=== PATIENT | male | born 1940 | race Caucasian/White ===

== ENCOUNTER 2021-11-01 17:14 | Inpatient (IN) | payer OTHER, MEDICARE ==
[2021-11-01] MEDS ORDERED: FUROSEMIDE 100 MG/10 ML VIAL IV ONE (19:08)
[2021-11-01 19:11] LABS: Absolute Lymphocytes (CBC) 1.1 K/uL (0.7-4.9); Hematocrit 41.2 % (39.6-49.0); Lymphocytes % 15.1 % (15.3-44.8); MCV 97.4 fL (80-100); MPV 7.3 fL (7.6-11.3); RBC Red Blood Cell Count 4.23 M/uL (4.33-5.43)
--- NOTE | 2021-11-01 19:17 | RAD REPORT ---
EXAM DESCRIPTION: RAD - Chest Single View - 11/01/2021 7:06 pm CLINICAL HISTORY: bilateral leg swelling, shortness of breath COMPARISON: Two view chest March 2021 TECHNIQUE: AP portable chest image was obtained 11/01/2021 7:06 pm . FINDINGS: Interstitial markings are increased over the prior study with a relatively similar lung vo lumes. No focal consolidation or mass. Mediastinum is distorted by rotation. Central vasculature is i ncreased over the prior study. Mild cardiomegaly is present in part due to portable imaging. No pneum othorax or large pleural effusion. No acute bony abnormality seen. No acute aortic findings suspected . IMPRESSION: Mild CHF/volume overload pattern.
[2021-11-01 19:28] LABS: Potassium 3.7 mmol/L (3.5-5.1)
[2021-11-01 19:30] LABS: Troponin High Sensitivity 33.9 pg/mL (<58.9)
--- NOTE | 2021-11-01 20:05 | EDPHYS ---
Physician Documentation [facility] Name: Nirav Maria Jr Age: 81 yrs Sex: Male : 1940 Arrival Date: 11/01/2021 Time: 17:16 Bed 16 Private MD: ED Physician Izaiah Colon HPI: 11/01 18:11 This 81 yrs old Male presents to ER via Ambulatory with complaints of Leg Swelling - kdr leaking fluid. 18:11 Patient states that for the past week he has had increased swelling to his lower kdr extremities. Today the swelling worsened and he started having fluid drainage from his ankles. He has not had this bad of an issue previously. He denies any chest pain or shortness of breath beyond his normal state. Denies productive cough. He does not currently require emergent intervention and is nontoxic-appearing. Onset: The symptoms/episode began/occurred gradually, 1 week(s) ago. Severity of symptoms: At their worst the symptoms were mild moderate just prior to arrival, in the emergency department the symptoms are unchanged. The patient has not experienced similar symptoms in the past. The patient has not recently seen a physician. Historical: - Allergies: 17:31 No Known Allergies; sanchez - Home Meds: 17:31 Unable to obtain [Active]; sanchez - Immunization history:: Adult Immunizations. - Social history:: Smoking status: Patient denies any tobacco usage or history of. ROS: 18:11 Constitutional: Negative for fever, chills, and weight loss, Eyes: Negative for injury, kdr pain, redness, and discharge, Neck: Negative for injury, pain, and swelling, Cardiovascular: Negative for chest pain, palpitations, and edema, Respiratory: Negative for shortness of breath, cough, wheezing, and pleuritic chest pain, Abdomen/GI: Negative for abdominal pain, nausea, vomiting, diarrhea, and constipation, Back: Negative for injury and pain, : Negative for injury, bleeding, discharge, and swelling, Skin: Negative for injury, rash, and discoloration, Neuro: Negative for headache, weakness, numbness, tingling, and seizure activity. Psych: Negative for depression, anxiety, suicide ideation, homicidal ideation, and hallucinations, Allergy/Immunology: Negative for hives, rash, and allergies, Endocrine: Negative for neck swelling, polydipsia, polyuria, polyphagia, and marked weight changes, Hematologic/Lymphatic: Negative for swollen nodes, abnormal bleeding, and unusual bruising. 18:11 MS/extremity: Positive for pain, tenderness, warmth, of the right leg and left leg. Exam: 18:11 Constitutional: This is a well developed, well nourished patient who is awake, alert, kdr and in no acute distress. Head/Face: Normocephalic, atraumatic. Eyes: Pupils equal round and reactive to light, extra-ocular motions intact. Lids and lashes normal. Conjunctiva and sclera are non-icteric and not injected. Cornea within normal limits. Periorbital areas with no swelling, redness, or edema. 18:11 Cardiovascular: Edema: 4+ edema to level of left upper thigh, left lower thigh, left knee, left midcalf, left ankle, left foot, left toes, right upper thigh, right lower thigh, right knee, right midcalf and right toes. 18:11 ECG was reviewed by the Attending Physician. 20:11 Cardiovascular: Rate: normal, Rhythm: regular, Pulses: Pulses are 4+ in bilateral remberto radial, brachial, femoral, popliteal, posterior tibial and and dorsalis pedis arteries.. Heart sounds: normal, normal S1and S2, no S3 or S4, no murmur, no rub, no gallop, JVD: is not appreciated. 20:11 Respiratory: the patient does not display signs of respiratory distress, Respirations: labored breathing, is not present, Breath sounds: rales, that are mild, that are moderate, are located in both bases, rhonchi, that are mild, are scattered, stridor, is not appreciated. 20:11 Musculoskeletal/extremity: ROM: intact in all extremities, full active range of motion, full passive range of motion, Circulation is intact in all extremities. Sensation intact. Compartment Syndrome exam of affected extremity: is normal. DVT Exam: negative Homans' sign noted on exam, no appreciated bluish discoloration, no increased warmth, pain, swelling, tenderness, erythema. 20:16 ECG was reviewed by the Attending Physician. [facility] Vital Signs: 17:28 BP 132 / 65; Pulse 96; Resp 19; Temp 98.6; Pulse Ox 98% ; Weight 126.1 kg; Height 6 ft. sanchez (182.88 cm); 20:00 BP 134 / 79; Pulse 81; Resp 21; Pulse Ox 92% on R/A; vc1 22:05 BP 139 / 79; Pulse 67; Resp 20; Pulse Ox 92% ; vc1 17:28 Body Mass Index 37.70 (126.10 kg, 182.88 cm) sanchez MDM: 18:11 Data reviewed: vital signs, nurses notes, lab test result(s), radiologic studies. kdr Counseling: I had a detailed discussion with the patient and/or guardian regarding: the historical points, exam findings, and any diagnostic results supporting the discharge/admit diagnosis, lab results, radiology results, the need for outpatient follow up. 19:22 Patient medically screened. [facility] 11/01 18:10 Order name: Basic Metabolic Panel; Complete Time: 20:01 [facility] 11/01 18:10 Order name: CBC with Diff; Complete Time: 20:01 [facility] 11/01 18:10 Order name: NT PRO-BNP; Complete Time: 20:01 [facility] 11/01 18:10 Order name: Troponin HS; Complete Time: 20:01 [facility] 11/01 18:23 Order name: Troponin High Sensitivity [facility] 11/01 18:23 Order name: Chest Single View; Complete Time: 20:01 [facility] 11/01 20:11 Order name: US Extremity Venous W Compression Shon [facility] 11/01 20:15 Order name: TSH [facility] 11/01 21:18 Order name: SARS-COV-2 RT PCR [facility] 11/01 18:10 Order name: EKG; Complete Time: 18:35 [facility] 11/01 18:10 Order name: Cardiac monitoring; Complete Time: 19:52 [facility] 11/01 18:10 Order name: EKG - Nurse/Tech; Complete Time: 19:52 [facility] 11/01 18:10 Order name: IV Saline Lock; Complete Time: 19:52 [facility] 11/01 18:10 Order name: Labs collected and sent; Complete Time: 19:52 [facility] 11/01 18:10 Order name: O2 Per Protocol; Complete Time: 19:52 [facility] 11/01 18:10 Order name: O2 Sat Monitoring; Complete Time: 19:52 kdr 11/01 18:23 Order name: EKG Electrocardiogram [facility] EC:16 Rate is 83 beats/min. Rhythm is irregularly irregular. QRS [place] is Normal. DE interval remberto is normal. QRS interval is normal. QT interval is normal. No Q waves. T waves are Normal. No ST changes noted. Clinical impression: Atrial Fibrillation. Interpreted by me. Reviewed by me. Administered Medications: 19:04 Drug: Lasix (furosemide) 60 mg Route: IVP; Site: left antecubital; jh6 20:18 Drug: Potassium Effervescent Tablet 25 mEq Route: PO; vc1 20:54 Drug: Lovenox (enoxaparin) 100 mg Route: Sub-Q; Site: left lower abdomen; vc1 Disposition Summary: 11/01/21 20:04 Hospitalization Ordered Hospitalization Status: Observation remberto Provider: Bryn Powers cha Location: Telemetry/MedSurg (observation) remberto Condition: Fair remberto Problem: new remberto Symptoms: have improved remberto Bed/Room Type: Standard remberto Room Assignment: 223(11/01/21 22:54) mw Diagnosis - Unspecified systolic (congestive) heart failure remberto - Edema, unspecified remberto - Dyspnea remberto - Venous insufficiency (chronic) (peripheral) remberto - Unspecified atrial fibrillation remberto Forms: - Medication Reconciliation Form remberto - SBAR form remberto Signatures: Dispatcher [employer] EDMS Vicky Burden RN RN mw Anderson, Corey, MD MD cha Rittger, Kevin, MD MD kdr Hastedt, Jennifer, RN RN jh Shilpi Gonzales RN RN ha Calcote, Vanessa RN RN vc1 Corrections: (The following items were deleted from the chart) 17:33 17:31 Home Meds: Feldene 10 mg Oral cap 1 cap once daily; sanchez sanchez 17:33 17:31 PMHx: Hypertensive disorder; sanchez sanchez 17:33 17:31 PMHx: Hypertensive disorder; sanchez sanchez 18:48 18:35 Chest Single View+RAD.RAD.BRZ ordered. EDMS EDMS 18:58 18:23 Basic Metabolic Panel ordered. EDMS EDMS 18:58 18:23 CBC with Automated Diff ordered. EDMS EDMS 18:58 18:23 NT PRO-BNP ordered. EDMS EDMS 21:18 20:25 COVID-19/FLU A+B+MOL.LAB.BRZ ordered. EDMS EDMS 22:54 20:04 remberto cantu
--- NOTE | 2021-11-01 20:05 | ER ---
Nurse's Notes [facility] Name: Nirav Maria Jr Age: 81 yrs Sex: Male : 1940 Arrival Date: 11/01/2021 Time: 17:16 Bed 16 Private MD: Diagnosis: Unspecified systolic (congestive) heart failure;Edema, unspecified;Dyspnea;Venous insufficiency (chronic) (peripheral);Unspecified atrial fibrillation Presentation: 11/01 17:28 Chief complaint: Patient states: pt reports bilateral leg swelling and leaking. sanchez Coronavirus screen: Vaccine status: Patient reports receiving the 2nd dose of the covid vaccine. Ebola Screen: Patient denies travel to an Ebola-affected area in the 21 days before illness onset. Initial Sepsis Screen: Does the patient meet any 2 criteria? HR > 90 bpm. Does the patient have a suspected source of infection?. Initial Sepsis Screen: Does the patient meet any 2 criteria?. Risk Assessment: Do you want to hurt yourself or someone else? Patient reports no desire to harm self or others. Onset of symptoms was 2021. 17:28 Method Of Arrival: Ambulatory sanchez 17:28 Acuity: ROYCE 3 sanchez Triage Assessment: 17:31 General: Appears in no apparent distress. Behavior is calm, cooperative. Pain: Denies sanchez pain. Historical: - Allergies: 17:31 No Known Allergies; sanchez - Home Meds: 17:31 Unable to obtain [Active]; sanchez - Immunization history:: Adult Immunizations. - Social history:: Smoking status: Patient denies any tobacco usage or history of. Screenin:00 Abuse screen: Denies threats or abuse. Denies injuries from another. Nutritional jh6 screening: No deficits noted. On. Tuberculosis screening: No symptoms or risk factors identified. Fall Risk IV access (20 points). Gait- Impaired (20 pts.). Assessment: 18:00 General: Appears in no apparent distress. Behavior is calm, cooperative. jh6 18:00 General: pt states that over the last couple of weeks he has had increase in weight and jh6 swelling to lower ext bilat. pt is taking a fluid pill but states obviously isn't working. . Pain: Complains of pain in right leg and left leg Pain currently is 4 out of 10 on a pain scale. Quality of pain is described as burning, sharp, Is continuous. Derm: Skin is thin, with poor turgor Wound noted right leg and left leg Reports oozing fluid. 19:00 Reassessment: Patient and/or family updated on plan of care and expected duration. Pain vc1 level reassessed. Patient is alert, oriented x 3, equal unlabored respirations, skin warm/dry/pink. 20:00 Reassessment: Patient and/or family updated on plan of care and expected duration. Pain vc1 level reassessed. Patient is alert, oriented x 3, equal unlabored respirations, skin warm/dry/pink. Patient states symptoms have improved. 21:00 Reassessment: Patient and/or family updated on plan of care and expected duration. Pain vc1 level reassessed. Patient is alert, oriented x 3, equal unlabored respirations, skin warm/dry/pink. Patient states feeling better. Patient states symptoms have improved. 22:00 Reassessment: No changes from previously documented assessment. vc1 Vital Signs: 17:28 BP 132 / 65; Pulse 96; Resp 19; Temp 98.6; Pulse Ox 98% ; Weight 126.1 kg; Height 6 ft. sanchez (182.88 cm); 20:00 BP 134 / 79; Pulse 81; Resp 21; Pulse Ox 92% on R/A; vc1 22:05 BP 139 / 79; Pulse 67; Resp 20; Pulse Ox 92% ; vc1 17:28 Body Mass Index 37.70 (126.10 kg, 182.88 cm) sanchez ED Course: 17:16 Patient arrived in ED. as 17:31 Triage completed. sanchez 17:31 Arm band placed on. sanchez 17:51 Estefany Quiñones, YANNA is Primary Nurse. jh6 17:51 Clint Meneses MD is Attending Physician. kdr 18:00 Placed in gown. Bed in low position. Call light in reach. Side rails up X 1. Adult w/ jh6 patient. 18:50 Inserted saline lock: 20 gauge in left antecubital area, using aseptic technique. Blood 6 collected. 19:08 Chest Single View In Process Unspecified. EDMS 19:22 Attending Physician role handed off by Clint Meneses MD remberto 19:22 Izaiah Colon MD is Attending Physician. remberto 20:03 Bryn Powers MD is Hospitalizing Provider. remberto 21:12 US Extremity Venous W Compression Shon In Process Unspecified. EDMS Administered Medications: 19:04 Drug: Lasix (furosemide) 60 mg Route: IVP; Site: left antecubital; jh6 20:18 Drug: Potassium Effervescent Tablet 25 mEq Route: PO; vc1 20:54 Drug: Lovenox (enoxaparin) 100 mg Route: Sub-Q; Site: left lower abdomen; vc1 Outcome: 20:04 Decision to Hospitalize by Provider. [facility] 11/02 00:07 Patient left the ED. vc1 Signatures: Dispatcher [employer] EDMS Izaiah Colon MD MD cha Rittger, Kevin, MD MD kdr Martinez, Amelia as Hastedt, Jennifer, RN RN [facility] Tammie-StagerShilpi RN RN ha Calcote, Vanessa, RN RN vc1 Corrections: (The following items were deleted from the chart) 11/01 17:33 17:31 Home Meds: Feldene 10 mg Oral cap 1 cap once daily; sanchez sanchez 17:33 17:31 PMHx: Hypertensive disorder; sanchez sanchez 17:33 17:31 PMHx: Hypertensive disorder; sanchez sanchez
[2021-11-01] MEDS ORDERED: POTASSIUM 25 MEQ EFFERV TAB ONE (20:20)
[2021-11-01] MEDS ORDERED: ENOXAPARIN 100 MG/ML SYR SQ ONE (20:31)
--- NOTE | 2021-11-01 21:05 | P.HP ---
Certification for Inpatient Patient admitted to: Observation With expected LOS: <2 Midnights Patient will require the following post-hospital care: None Practitioner: I am a practitioner with admitting privileges, knowledge of patient current condition, hospital course, and medical plan of care. Services: Services provided to patient in accordance with Admission requirements found in Title 42 Section 412.3 of the Code of Federal Regulations Patient History Date of Service: 11/01/21 Reason for admission: CHF Exacerbation, New Afib History of Present Illness: Patient is an 81-year-old male with PMH of CHF (unknown EF) and HTN who presented to the ED with complaints of bilateral leg swelling with fluid leakage and weight gain over the past 2-4 weeks. Patient reports that he takes a fluid pill prescribed by Dr. Pelayo but is not sure of the name. He had a nuclear stress test about 6 months ago that was normal (sees Maurisio). He reports having an ec ho in the past, but is not sure when. Patient was noted to be in afib on presentation but denies history of afib. BLE with 4+ pitting edema up to thighs. Chest xray showed mild CHF. pro BNP 385, troponin WNL. He was given 60 mg IV lasix and therapeutic lovenox. Patient has diuresed appropriately and is already feeling relief. venous doppler negative for DVT. He is admitted for observation. Allergies No Known Allergies Allergy (Unverified 11/01/21 18:19) - Past Medical/Surgical History -: CHF -: HTN -: GERD -: L shoulder -: Appendectomy Psychosocial/ Personal History: Patient is . - Family History Mother -: Lung disease - Social History Smoking Status: Former smoker Alcohol use: Yes CD- Drugs: No Caffeine use: Yes Place of Residence: Home Review of Systems Musculoskeletal: Leg Pain, Pedal edema, As per HPI Physical Examination - Physical Exam General: Alert, In no apparent distress, Obese HEENT: Atraumatic, PERRLA, EOMI, Sclerae nonicteric Neck: Supple, 2+ carotid pulse no bruit, No LAD, Without JVD or thyroid abnormality Respiratory: Diminished Cardiovascular: Edema (3+ BLE ), Irregular heart rate/rhythm (afib) Gastrointestinal: Normal bowel sounds, No tenderness Integumentary: Tenderness/swelling, Erythema Neurological: Normal speech, Normal strength at 5/5 x4 extr, Normal tone, Normal affect - Studies Laboratory Data (last 24 hrs) 11/01/21 18:58: WBC 7.4, Hgb 13.6, Hct 41.2, Plt Count 191 11/01/21 18:58: Sodium 143, Potassium 3.7, BUN 17, Creatinine 0.94, Glucose 103 11/01/21 18:20: Sodium Cancelled, Potassium Cancelled, BUN Cancelled, Creatinine Cancelled, Glucose Cancelled 11/01/21 18:20: WBC Cancelled, Hgb Cancelled, Hct Cancelled, Plt Count Cancelled Assessment and Plan - Problems (Diagnosis) (1) Acute on chronic systolic CHF (congestive heart failure) Current Visit: Yes Status: Acute (2) New onset a-fib Current Visit: Yes Status: Acute (3) Anasarca Current Visit: Yes Status: Acute (4) Hypertension Current Visit: Yes Status: Chronic Qualifiers: Hypertension type: primary hypertension Qualified Code(s): I10 - Essential (primary) hypertension - Plan -Echo ordered for morning. Cardiology consulted. -Continue IV lasix. Monitor intake and output. -New onset afib, rate controlled. Therapeutic lovenox given in ED. Monitor on telemetry. -Reconcile and continue home medications -Monitor and replete electrolytes per protocol -Lovenox for VTE ppx -Full code Discharge Plan: Home Plan to discharge in: 24 Hours - Advance Directives Does patient have a Living Will: Yes Does patient have a Durable POA for Healthcare: Yes - Code Status/Comfort Care Code Status Assessed: Yes (Full) Critical Care: No Time Spent Managing Pts Care (In Minutes): 50
[2021-11-01] MEDS ORDERED: ONDANSETRON 4 MG/2 ML VIAL IV PRN (23:18)
[2021-11-02] MEDS ORDERED: POTASSIUM 25 MEQ EFFERV TAB ONE (00:12)
[2021-11-02 04:05] LABS: Absolute Lymphocytes (CBC) 0.8 K/uL (0.7-4.9); Hematocrit 41.8 % (39.6-49.0); Lymphocytes % 9.3 % (15.3-44.8); MPV 7.5 fL (7.6-11.3); RBC Red Blood Cell Count 4.23 M/uL (4.33-5.43)
[2021-11-02 04:25] LABS: Magnesium 2.4 mg/dL (1.8-2.4); Potassium 3.6 mmol/L (3.5-5.1)
--- NOTE | 2021-11-02 07:57 | EKG ---
Test Date: 2021-11-01 Test Time: 19:42:58 Automatic Lump Making Machine Tender: ALENA MEASUREMENT RESULTS: Intervals: Rate: 83 AL: QRSD: 134 QT: 414 QTc: 486 Cameron: P: AL: QRS: -62 T: 104 INTERPRETIVE STATEMENTS: Atrial fibrillation with a competing junctional pacemaker with premature ventricular or aberrantly conducted complexes Left axis deviation Right bundle branch block Minimal voltage criteria for LVH, may be normal variant Inferior infarct, age undetermined Anterior infarct, age undetermined Abnormal ECG Compared to ECG 09/09/2019 17:04:44 Ventricular premature complex(es) now present eft-axis deviation now present Bifascicular block no longer present Early repolarization no longer present Electronically Signed On 11-02-21 07:55:25 CDT by Jeet Forde
[2021-11-02] MEDS ORDERED: PNEUMOCOCCAL VACCINE 0.5 ML IMVAC ONE (08:00)
--- NOTE | 2021-11-02 08:15 | RAD REPORT ---
EXAM DESCRIPTION: US - Extrem Venous W Compress Shon - 11/01/2021 9:10 pm CLINICAL HISTORY: PAINboth lower extremities COMPARISON: None. TECHNIQUE: Real-time sonographic evaluation of the bilateral lower extremity common femoral, superfi cial femoral, popliteal and posterior tibial veins was performed. FINDINGS: Normal compressibility, flow augmentation, phasic flow and spontaneous flow are identified in the left and right lower extremity common femoral, superficial femoral, popliteal and posterior t ibial veins. No intraluminal filling defects seen. Preliminary findings were provided to the referring clinician at the time of the study. IMPRESSION: No DVT in either lower extremity.
[2021-11-02] MEDS: FUROSEMIDE 20 MG/ 2ML VIAL IV SCH ×2 (08:25→16:24)
[2021-11-02] MEDS ORDERED: POTASSIUM CL SA 10 MEQ TAB PO ONE (09:00)
[2021-11-02] MEDS ORDERED: ENOXAPARIN 40 MG/0.4 ML SQ SCH (09:00)
--- NOTE | 2021-11-02 09:44 | CON ---
Date of Consultation: 11/02/2021 Admitted on 11/01/[address] Sullivan. I saw the patient on 11/02/2021. Reason For Consultation: CHF, new onset atrial fibrillation. History Of Present Illness: Mr. Maria is an 81 years old. He is known to me from previous office vi sits and admissions. He has a history of chronic diastolic congestive heart failure, mild coronary a rtery disease, hypertension, hyperlipidemia, previous history of tobacco use. He came into the [facility] with congestive heart failure, mainly shortness of breath, cough, severe pedal edema, weight gain . Denied any nausea, vomiting, diaphoresis. He denied any palpitation or syncope, but was found to be in atrial fibrillation. Past Medical History: As stated above. Allergies: NONE. Review of Systems: Negative. Social History: Positive for tobacco in the past. Family History: Noncontributory. Medications: At home include aspirin, Protonix, torsemide 20 mg daily, and Zocor 20 mg daily. Physical Examination: Vital Signs: Stable. He was afebrile. He was in atrial fibrillation. Weight is 90. HEENT: Negative. Neck: Supple with no bruit, lymphadenopathy, JVD, or thyromegaly. Chest: Revealed some expiratory wheezing. Cardiac: Revealed a regular rhythm and rate with S4 gallops. No murmurs or rubs. Abdomen: Obese. Extremities: Revealed 3+ edema to the knees. Skin: Dry and intact. Neurologic: He was nonfocal. Pulses were present distally bilaterally, the dorsalis pedis and poste rior tibial in the femoral artery. Diagnostic Data: He was COVID positive. BNP was 585. Chest x-ray showed mild CHF. EKG showed atri al fibrillation. Impression And Plan: 1.Acute on chronic diastolic congestive heart failure. Last echocardiogram in my office in March 2021. He had a normal ejection fraction with diastolic dysfunction. He had a normal stress test in March 2021. He had mild coronary artery disease by catheterization in 2004. He needs to be diur esed with IV Lasix. We need to put him on carvedilol. We need to consider low-dose SAMSON inhibitor. He does take Demadex at home. We can change that to Lasix down the road. 2.New onset atrial fibrillation, rate controlled, asymptomatic. I think we need to put him on a bet a-laura and we need to anticoagulate him when he goes home with Everett and Rosalinda. He is on Love nox now and I agree with that. 3.COVID positive. 4.Hypertension. 5.Dyslipidemia. 6.Obesity. 7.Gastroesophageal reflux disease. I will continue to follow him. Echocardiogram is pending. TOÑO Voice ID: [id number] Report ID: [id number]
[2021-11-02 11:58] LABS: Urine Appearance CLEAR (Clear); Urine Bilirubin NEGATIVE (Negative); Urine Blood 2+ (Negative); Urine Color YELLOW (Yellow); Urine Glucose NEGATIVE (Negative); Urine Protein NEGATIVE (Negative)
[2021-11-02 12:32] LABS: Urine Bacteria <20 /HPF (NONE SEEN); Urine RBC 20-50 /HPF (NONE SEEN)
[2021-11-02] MEDS: BENZONATATE 100 MG CAP PO PRN ×2 (13:59→20:24)
--- NOTE | 2021-11-02 17:06 | P.PN ---
Subjective Date of Service: 11/02/21 Primary Care Provider: Dr. Sahil Pelayo Chief Complaint: CHF Exacerbation, New Afib No acute events since admission. He reports that his breathing has improved, but his primary complaint is a dry cough. Review of Systems General: Unremarkable Eyes: Unremarkable ENT: Unremarkable Respiratory: Cough, Shortness of Breath Cardiovascular: Unremarkable Gastrointestinal: Unremarkable Genitourinary: Unremarkable Musculoskeletal: Unremarkable Integumentary: Unremarkable Neurological: Unremarkable Physical Examination - Vital Signs Temperature: 99.5 F Blood Pressure: 150/70 Pulse: 89 Respirations: 16 Pulse Ox (%): 90 - Physical Exam General: Alert, In no apparent distress, Oriented x3 HEENT: Atraumatic Neck: JVD not distended Respiratory: Normal air movement, Crackles/rales (bibasilar) Cardiovascular: Edema (2-3+ pitting) Gastrointestinal: Normal bowel sounds, Soft and benign, No tenderness, No rebound, No guarding Musculoskeletal: No clubbing Integumentary: No rashes Neurological: Normal speech, Normal tone, Normal affect - Studies Laboratory Data (last 24 hrs) 11/02/21 03:52: Sodium 142, Potassium 3.6, BUN 15, Creatinine 0.91, Glucose 117 H, Magnesium 2.4, Triglycerides 67, Cholesterol 108, HDL Cholesterol 49, Cholesterol/HDL Ratio 2.20 11/02/21 03:52: WBC 8.3, Hgb 14.0, Hct 41.8, Plt Count 206 11/01/21 18:58: WBC 7.4, Hgb 13.6, Hct 41.2, Plt Count 191 11/01/21 18:58: Sodium 143, Potassium 3.7, BUN 17, Creatinine 0.94, Glucose 103 11/01/21 18:20: Sodium Cancelled, Potassium Cancelled, BUN Cancelled, Creatinine Cancelled, Glucose Cancelled 11/01/21 18:20: WBC Cancelled, Hgb Cancelled, Hct Cancelled, Plt Count Cancelled Assessment And Plan - Plan (1) Acute on chronic systolic CHF (congestive heart failure) Current Visit: Yes Status: Acute (2) New onset a-fib Current Visit: Yes Status: Acute (3) Anasarca Current Visit: Yes Status: Acute (4) Hypertension Current Visit: Yes Status: Chronic Qualifiers: Hypertension type: primary hypertension Qualified Code(s): I10 - Essential (primary) hypertension - Plan - Cardiology consulted and spoke with Dr. Forde - Recommends starting beta-laura and anticoagulation for atrial fibrillation - Started on metoprolol and enoxaparin - TTE = pending - Continue IV furosemide. Monitor intake and output. - Telemetry - COVID-19 infection seems minimally symptomatic - PRN guaifenesin, benzonatate - Reconcile and continue home medications - Monitor and replete electrolytes per protocol - Will need outpatient Urology follow-up for microscopic hematuria - Full code Jorgito Neal MD
[2021-11-02] MEDS: METOPROLOL TAR 25 MG TAB PO SCH (17:47)
[2021-11-02] MEDS: Enoxaparin 120 MG/0.8 ML SYR SQ SCH (20:24)
[2021-11-02] MEDS: GUAIFENESIN 600 MG SA TAB PO SCH (20:24)
--- NOTE | 2021-11-03 06:48 | ECHO ---
HEIGHT: 6 ft 0 in WEIGHT: 272 lb 0 oz DATE OF STUDY: 11/02/[address]: Abby Navarrete 2-DIMENSIONAL: YES M.MODE: YES DOPPLER: YES COLOR FLOW: YES TDS: NO PORTABLE: YES DEFINITY: NO BUBBLE STUDY: NO DIAGNOSIS: CONGESTIVE HEART FAILURE EXACERBATION, NEW ATRIAL FIBRILLATION CARDIAC HISTORY: CATHERIZATION: NO SURGERY: NO PROSTHETIC VALVE: NO PACEMAKER: NO MEASUREMENTS (cm) DIASTOLIC (NORMALS) SYSTOLIC (NORMALS) IVSd 1.1 (0.6-1.2) LA Diam 4.0 (1.9-4.0) LVEF 45-50% LVIDd 4.9 (3.5-5.7) LVIDs 3.4 (2.0-3.5) %FS 29% LVPWd 1.4 (0.6-1.2) Ao Diam 2.9 (2.0-3.7) 2 DIMENSIONAL ASSESSMENT: RIGHT ATRIUM: NORMAL LEFT ATRIUM: NORMAL RIGHT VENTRICLE: NORMAL LEFT VENTRICLE: NORMAL TRICUSPID VALVE: MITRAL VALVE: PULMONIC VALVE: AORTIC VALVE: PERICARDIAL EFFUSION: NONE AORTIC ROOT: NORMAL LEFT VENTRICULAR WALL MOTION: MILD GLOBAL HYPOKINESIS. DOPPLER/COLOR FLOW: SEE BELOW COMMENTS: MILDLY DEPRESSED LEFT VENTRICULAR EJECTION FRACTION 45-50%. MILD GLOBAL HYPOKINESIS. MILD ATRIAL, MITRAL AND TRICUSPID REGURGITATION. MILD PULMONARY INSUFFICIENCY TECHNOLOGIST: Katina ORELLANA
[2021-11-03] MEDS: METOPROLOL TAR 25 MG TAB PO SCH ×2 (07:03→17:44)
[2021-11-03] MEDS: FUROSEMIDE 20 MG/ 2ML VIAL IV SCH ×2 (08:30→17:44)
[2021-11-03] MEDS: BENZONATATE 100 MG CAP PO PRN ×2 (08:30→21:12)
[2021-11-03] MEDS: GUAIFENESIN 600 MG SA TAB PO SCH ×2 (08:30→21:12)
[2021-11-03] MEDS: Enoxaparin 120 MG/0.8 ML SYR SQ SCH ×2 (08:30→21:12)
--- NOTE | 2021-11-03 16:39 | P.PN ---
Subjective Date of Service: 11/03/21 Primary Care Provider: Dr. Sahil Pelayo Chief Complaint: CHF Exacerbation, New Afib No acute events since admission. He reports that his breathing has improved, His net I/O since admission is -2.2 L. He continues to experience a dry cough despite PRN guaifenesin, benzonatate Review of Systems General: Unremarkable Eyes: Unremarkable ENT: Unremarkable Respiratory: Cough, Shortness of Breath Cardiovascular: Unremarkable Gastrointestinal: Unremarkable Genitourinary: Unremarkable Musculoskeletal: Unremarkable Integumentary: Unremarkable Neurological: Unremarkable Physical Examination - Vital Signs Temperature: 99.8 F Blood Pressure: 159/80 Pulse: 84 Respirations: 20 Pulse Ox (%): 95 - Physical Exam General: Alert, In no apparent distress, Oriented x3 HEENT: Atraumatic, Mucous membr. moist/pink Neck: JVD not distended Respiratory: Clear to auscultation bilaterally, Crackles/rales (bibasilar - faint) Cardiovascular: Regular rate/rhythm, Normal S1 S2, No gallops, No rubs, No murmurs, Edema (3+ bilateral lower extremity pitting) Gastrointestinal: Normal bowel sounds, Soft and benign, No tenderness, No rebound, No guarding Musculoskeletal: No clubbing Integumentary: No rashes Neurological: Normal speech, Normal tone, Normal affect - Studies Medications List Reviewed: Yes Assessment And Plan - Plan (1) Acute on chronic systolic CHF (congestive heart failure) Current Visit: Yes Status: Acute (2) New onset a-fib Current Visit: Yes Status: Acute (3) Anasarca Current Visit: Yes Status: Acute (4) Hypertension Current Visit: Yes Status: Chronic Qualifiers: Hypertension type: primary hypertension Qualified Code(s): I10 - Essential (primary) hypertension - Plan - Cardiology consulted and spoke with Dr. Forde - Recommends starting beta-laura and anticoagulation for atrial fibrillation - Started on metoprolol and enoxaparin - TTE = mildly depressed left ventricular ejection fraction 45 to 50%. Mild global hypokinesis. Mild atrial, mitral, and tricuspid regurgitation. Mild pulmonary insufficiency. - Continue IV furosemide. Monitor intake and output. - Net I/O -2.2 L - Telemetry - COVID-19 infection seems minimally symptomatic - PRN guaifenesin, benzonatate - Reconcile and continue home medications - Monitor and replete electrolytes per protocol - Will need outpatient Urology follow-up for microscopic hematuria - Full code Jorgito Neal MD Discharge Plan: Home Plan to discharge in: 48 Hours - Code Status/Comfort Care Code Status Assessed: Yes Code Status: Full Code Critical Care: No
--- NOTE | 2021-11-03 17:32 | PN ---
Date of Progress Note: 11/03/2021 Mr. Maria was admitted by Dr. Neal for acute on chronic diastolic congestive heart failure. He had a normal stress test in 03/2021 and he has improved on Lasix. He has new onset atrial fibrillation t hat is rate controlled and asymptomatic. I think he needs to be on a beta-laura. I think he needs to be anticoagulated with Eliquis or Xarelto. Echocardiogram showed an ejection fraction of 45% to 50% with mild pulmonary hypertension. The patient remains in AFib at a rate of 80. He is afebrile. Otherwise, his O2 saturation is 97% on 2 L of nasal cannula. Again, I think he can go home on his h ome medications, which include Zocor and torsemide 20 daily. I think he needs to be on carvedilol an d he needs to be on a low-dose SAMSON inhibitor as well as Xarelto or Eliquis and I will see him in the office in the very near future. ROXANNE/KALPANA Voice ID: [id number] Report ID: [id number]
[2021-11-04 04:48] LABS: Absolute Lymphocytes (CBC) 0.9 K/uL (0.7-4.9); Hematocrit 44.4 % (39.6-49.0); Lymphocytes % 19.4 % (15.3-44.8); MCV 99.4 fL (80-100); MPV 7.7 fL (7.6-11.3); RBC Red Blood Cell Count 4.47 M/uL (4.33-5.43)
[2021-11-04 05:00] LABS: Potassium 3.8 mmol/L (3.5-5.1)
[2021-11-04 05:12] LABS: Blood Morphology Comment NOT SEEN (NOT SEEN); Platelet Estimate ADEQ
[2021-11-04] MEDS ORDERED: POTASSIUM CL SA 10 MEQ TAB PO ONE (06:00)
[2021-11-04] MEDS: METOPROLOL TAR 25 MG TAB PO SCH ×2 (06:26→17:03)
--- NOTE | 2021-11-04 09:17 | P.DS ---
Admission Date: 11/02/21 Discharge Date: 11/04/21 Primary Care Provider: Dr. Sahil Pelayo Disposition: ROUTINE DISCHARGE Discharge Condition: GOOD Reason for Admission: CHF Exacerbation, New Afib Consultations: 1. Cardiology Hospital Course: DIAGNOSES: # Acute on Chronic Systolic Congestive Heart Failure with Reduced Ejection Fraction (LVEF 45-50 %) # New-Onset Atrial Fibrillation - not in RVR # COVID-19 Infection # Microscopic Hematuria # HOSPITAL COURSE Mr. Nirav Maria is a pleasant 81 year old male with a past medical history significant for chronic systolic congestive heart failure with reduced ejection fraction (LVEF 45-50 %) and hypertension who was admitted to the [facility] on 11/01/2021 for an acute on chronic systolic congestive heart failure exacerbation. Upon evaluation, he was found to have new onset atrial fibrillation (ratecontrolled) as well as a mild congestive heart failure exacerbation. He was also incidentally found to test positive for COVID-19, but was reporting minimal dry cough. Cardiology was consulted and he was diuresed about 3 L during his hospitalization, with improvement in his breathing. Dr. Forde (his law firm consultant) saw him while he was hospitalized and recommended starting a betablocker as well as systemic anticoagulation. He was started on metoprolol and therapeutic enoxaparin. The enoxaparin was transitioned to apixaban, and case management assisted with obtaining prior authorization. Cardiology has cleared him for discharge today with these medication changes and recommended continuing his home torsemide. On 11/04/2021, he was seen on morning rounds and deemed medically stable for discharge. He was discharged with instructions to schedule follow-up appointments with his PCP (Dr. Pelayo) in 3-5 days and with his Harvesting Manager (Dr. Forde) in 3-5 days. He was provided prescriptions for metoprolol, apixaban, and benzonatate. He was given the opportunity to ask questions and reported no further questions. Furthermore, all questions were answered to the best of my ability. Today, I personally spent 20 minutes with Mr. Maria, of which greater than 50% of the time was spent in patient education, counseling, and coordination of care as described above. Vital Signs/Physical Exam: Temp Pulse Resp BP Pulse Ox 98 F 72 19 168/81 H 93 11/04/21 04:00 11/04/21 06:26 11/04/21 04:00 11/04/21 06:26 11/04/21 04:00 Laboratory Data at Discharge: WBC 4.9 K/uL (4.3-10.9) D 11/04/21 04:15 Hgb 14.8 g/dL (13.6-17.9) 11/04/21 04:15 Hct 44.4 % (39.6-49.0) 11/04/21 04:15 Plt Count 194 K/uL (152-406) 11/04/21 04:15 Sodium 137 mmol/L (136-145) 11/04/21 04:15 Potassium 3.8 mmol/L (3.5-5.1) 11/04/21 04:15 BUN 16 mg/dL (7-18) 11/04/21 04:15 Creatinine 1.06 mg/dL (0.55-1.3) 11/04/21 04:15 Glucose 105 mg/dL (74-106) 11/04/21 04:15 Magnesium 2.4 mg/dL (1.8-2.4) 11/02/21 03:52 Triglycerides 67 mg/dL (<150) 11/02/21 03:52 Cholesterol 108 mg/dL (<200) 11/02/21 03:52 HDL Cholesterol 49 mg/dL (40-60) 11/02/21 03:52 Cholesterol/HDL Ratio 2.20 11/02/21 03:52 Home Medications: Eszopiclone [Lunesta] 2 mg PO BEDTIME 11/02/21 Felodipine [Plendil] 10 mg PO DAILY 11/02/21 Pantoprazole Sodium 40 mg PO DAILY 11/02/21 Simvastatin 20 mg PO BEDTIME 11/02/21 Torsemide [Demadex*] 20 mg PO DAILY 11/02/21 Apixaban [Eliquis] 5 mg PO BID #60 tablet 11/04/21 Benzonatate [Tessalon Perle*] 100 mg PO TID PRN #30 cap 11/04/21 Metoprolol Tartrate [Lopressor*] 12.5 mg PO BID 6AM 6PM #60 tab 11/04/21 New Medications: Apixaban [Eliquis] 5 mg PO BID #60 tablet Metoprolol Tartrate [Lopressor*] 12.5 mg PO BID 6AM 6PM #60 tab Benzonatate [Tessalon Perle*] 100 mg PO TID PRN #30 cap PRN Reason: Cough Followup: Jeet Forde MD [ACTIVE - CAN ADMIT] - Sahil Pelayo MD [Primary Care Provider] -
[2021-11-04] MEDS: TORSEMIDE 20 MG TAB PO SCH (09:31)
[2021-11-04] MEDS: ACETAMINOPHEN 500 MG TAB PO PRN (09:31)
[2021-11-04] MEDS: APIXABAN 5 MG TABLET PO SCH (09:31)
[2021-11-04] MEDS: GUAIFENESIN 600 MG SA TAB PO SCH ×2 (09:31→20:53)
--- NOTE | 2021-11-04 09:44 | P.PN ---
Subjective Date of Service: 11/04/21 Primary Care Provider: Dr. Sahil Pelayo Chief Complaint: CHF Exacerbation, New Afib He was initially doing well this morning, and discharge was anticipated; however, he spiked a fever to 101.3 F, which is concerning for developing viral sepsis/symptomatic COVID-19 infection. Discharge has been canceled and chest x- ray has been ordered. He reports that clinically his breathing is still improving daily. His net I/O since admission is -3 L. Review of Systems General: Fever, Chills Eyes: Unremarkable ENT: Unremarkable Respiratory: Cough, Shortness of Breath (improving) Cardiovascular: Unremarkable Gastrointestinal: Unremarkable Genitourinary: Unremarkable Musculoskeletal: Unremarkable Integumentary: Unremarkable Neurological: Unremarkable Physical Examination - Vital Signs Temperature: 101.3 F Blood Pressure: 168/81 Pulse: 72 Respirations: 19 Pulse Ox (%): 93 - Physical Exam General: Alert, In no apparent distress, Oriented x3 HEENT: Atraumatic, Mucous membr. moist/pink Neck: Supple, Without JVD or thyroid abnormality Respiratory: Clear to auscultation bilaterally, Diminished Cardiovascular: No edema, Normal pulses, Regular rate/rhythm, No gallops, No rubs, No murmurs Gastrointestinal: Normal bowel sounds, Soft and benign, No tenderness, No rebound, No guarding Musculoskeletal: No clubbing, No swelling Integumentary: No rashes Neurological: Normal speech, Normal affect - Studies Medications List Reviewed: Yes Assessment And Plan - Plan (1) Acute on chronic systolic CHF (congestive heart failure) Current Visit: Yes Status: Acute (2) New onset a-fib Current Visit: Yes Status: Acute (3) Anasarca Current Visit: Yes Status: Acute (4) Hypertension Current Visit: Yes Status: Chronic Qualifiers: Hypertension type: primary hypertension Qualified Code(s): I10 - Essential (primary) hypertension - Plan - Cardiology consulted and spoke with Dr. Forde - Recommends starting beta-laura and anticoagulation for atrial fibrillation - Started on metoprolol and enoxaparin (switched to apixaban today) - Will add losartan today given systolic CHF - TTE = mildly depressed left ventricular ejection fraction 45 to 50%. Mild global hypokinesis. Mild atrial, mitral, and tricuspid regurgitation. Mild pulmonary insufficiency. - Continue IV furosemide. Monitor intake and output. - Net I/O -3 L - Telemetry - COVID-19 infection - spiked fever this morning. Repeat chest x-ray pending - PRN guaifenesin, benzonatate - Reconcile and continue home medications - Monitor and replete electrolytes per protocol - Will need outpatient Urology follow-up for microscopic hematuria - Full code Jorgito Neal MD
--- NOTE | 2021-11-04 10:30 | RAD REPORT ---
EXAM DESCRIPTION: RAD - Chest Single View - 11/04/2021 10:07 am CLINICAL HISTORY: fever, covid COMPARISON: Portable November 01 TECHNIQUE: AP portable chest image was obtained 11/04/2021 10:07 am . FINDINGS: Lung volumes are low accentuating the interstitial pattern. No typical COVID-19 pneumonia findings seen. Mild viral infectious process could be masked in the accentuated lung molina due to th e shallow inspiration. Heart size is similar to comparison. No vascular engorgement. No measurable pleural effusion and no pneumothorax. No acute bony abnormality seen. No acute aortic findings suspected. IMPRESSION: Limited shallow inspiration film with no acute cardiopulmonary finding. A mild viral inf iltrate could be masked. No typical COVID pneumonia findings seen.
[2021-11-04] MEDS: LOSARTAN POTASSIUM 50 MG TABLET PO SCH (10:53)
--- NOTE | 2021-11-04 13:16 | P.CNS ---
Date of Consult: 11/04/21 Primary Care Provider: Dr. Sahil Pelayo Chief Complaint: CHF Exacerbation, New Afib History of Present Illness: The patient is an 81-year-old male with past medical history of congestive heart failure who presented to the emergency department secondary to bilateral lower extremity swelling. On admission patient was found to be COVID-positive. Infectious disease has been consulted as the patient spiked a fever today with a T-max of 101.3 in addition to having bandemia. He is currently only requiring 1 L of oxygen via nasal cannula. Chest x-ray showed no acute cardiopulmonary findings. Patient states he generally feels well, denies nausea/vomiting/di arrhea. Does report slight sore throat and dyspnea on exertion. He does not meet qualifications for remdesivir therapy at this time. Allergies No Known Allergies Allergy (Unverified 11/01/21 18:19) Home Medications: Eszopiclone [Lunesta] 2 mg PO BEDTIME 11/02/21 Felodipine [Plendil] 10 mg PO DAILY 11/02/21 Pantoprazole Sodium 40 mg PO DAILY 11/02/21 Simvastatin 20 mg PO BEDTIME 11/02/21 Torsemide [Demadex*] 20 mg PO DAILY 11/02/21 Apixaban [Eliquis] 5 mg PO BID #60 tablet 11/04/21 Benzonatate [Tessalon Perle*] 100 mg PO TID PRN #30 cap 11/04/21 Metoprolol Tartrate [Lopressor*] 12.5 mg PO BID 6AM 6PM #60 tab 11/04/21 - Past Medical/Surgical History Diabetic: No -: CHF -: HTN -: GERD -: L shoulder rotator cuff -: Appendectomy Psychosocial/ Personal History: Patient is . - Family History Mother Medical History: Lung disease - Social History Alcohol use: Yes CD- Drugs: No Caffeine use: Yes Place of Residence: Home Review of Systems 10-point ROS is otherwise unremarkable Physical Examination Temp Pulse Resp BP Pulse Ox 99.5 F 72 86 H 127/63 92 11/04/21 12:00 11/04/21 12:00 11/04/21 12:00 11/04/21 12:00 11/04/21 12:00 General: Alert, In no apparent distress HEENT: Atraumatic, Normocephalic Respiratory: Clear to auscultation bilaterally, Normal air movement Cardiovascular: Normal pulses, Regular rate/rhythm Gastrointestinal: Normal bowel sounds, Soft and benign Integumentary: No rashes, No breakdown, No significant lesion Conclusions/Impression: Assessment/plan COVID-19 infection Currently on 1 L of oxygen via nasal cannula Recommend discharging patient on oral PACs lipid x5 days if baseline LFTs are within normal range Continue oxygen supplementation as needed Ingestive heart failure Medical management per primary team Plan of care discussed Dr. Hernandez Thank you for consultation
[2021-11-04 14:42] LABS: Hematocrit 42.2 % (39.6-49.0)
[2021-11-04] MEDS: BENZONATATE 100 MG CAP PO PRN (20:53)
--- NOTE | 2021-11-04 21:24 | RAD REPORT ---
EXAM DESCRIPTION: CT - Head Brain Wo Cont - 11/04/2021 9:16 pm CLINICAL HISTORY: Head injury status post fall COMPARISON: 2019 TECHNIQUE: Computed axial tomography of the head was obtained. IV contrast was not requested. All CT scans are performed using dose optimization technique as appropriate and may include automated exposure control or mA/KV adjustment according to patient size. FINDINGS: An intracranial bleed is not seen . The ventricles are normal in caliber. No extra-axial fluid collection is noted. No significant hypodensity within the brain Fluid within the sinuses/ mastoids is not seen. IMPRESSION: No acute intracranial abnormality is seen. If patient's symptoms persist MRI of the bra in would be recommended.
[2021-11-04 22:15] LABS: Hematocrit 45.2 % (39.6-49.0)
--- NOTE | 2021-11-04 22:24 | P.PN ---
Date of Service: 11/04/21 Called by nursing staff, patient reportedly had an unwitnessed fall in the bathroom. I went to assess the patient he was sitting on the side of the bed he reports that he got up to try to use the restroom and when standing from getting up from the toilet he felt very faint/weak and collapsed, he denies loss of consciousness he does report hitting the side of his head denies other injuries. CT head was ordered which was negative for any acute findings also place patient on fall precautions, ordered orthostatic vital signs, troponin and EKG which are pending. We will continue to monitor patient closely, he was concerned that he may have cut his scrotum or penis but it appears that it is actually his sarah hematuria that he was noting. We will repeat hemoglobin this evening as well.
[2021-11-05 04:42] LABS: Hematocrit 42.9 % (39.6-49.0); MPV 7.5 fL (7.6-11.3); RBC Red Blood Cell Count 4.33 M/uL (4.33-5.43)
[2021-11-05 04:54] LABS: Troponin High Sensitivity 196.9 pg/mL (<58.9)
[2021-11-05] MEDS: METOPROLOL TAR 25 MG TAB PO SCH ×2 (06:34→17:53)
[2021-11-05] MEDS: LOSARTAN POTASSIUM 50 MG TABLET PO SCH (08:32)
[2021-11-05] MEDS: GUAIFENESIN 600 MG SA TAB PO SCH ×2 (08:32→19:56)
[2021-11-05] MEDS: TORSEMIDE 20 MG TAB PO SCH (08:32)
[2021-11-05] MEDS: ACETAMINOPHEN 500 MG TAB PO PRN (08:42)
[2021-11-05] MEDS: APIXABAN 5 MG TABLET PO SCH ×2 (08:43→21:00)
--- NOTE | 2021-11-05 11:47 | P.PN ---
Subjective Date of Service: 11/05/21 Primary Care Provider: Dr. Sahil Pelayo Chief Complaint: CHF Exacerbation, New Afib Patient seen and examined patient currently on 2 L of oxygen via nasal cannula, recommend starting remdesivir. Review of Systems 10-point ROS is otherwise unremarkable Physical Examination - Vital Signs Temperature: 100.7 F Blood Pressure: 149/65 Pulse: 72 Respirations: 24 Pulse Ox (%): 93 - Studies Laboratory Last Values WBC 8.3 K/uL (4.3-10.9) 11/02/21 03:52 RBC 4.23 M/uL (4.33-5.43) L 11/02/21 03:52 Hgb 14.0 g/dL (13.6-17.9) 11/02/21 03:52 Hct 41.8 % (39.6-49.0) 11/02/21 03:52 MCV 99.0 fL (80-100) 11/02/21 03:52 MCH 33.1 pg (27.0-35.0) 11/02/21 03:52 MCHC 33.5 g/dL (32.0-36.0) 11/02/21 03:52 RDW 16.1 % (12.1-15.2) H 11/02/21 03:52 Plt Count 206 K/uL (152-406) 11/02/21 03:52 MPV 7.5 fL (7.6-11.3) L 11/02/21 03:52 Neutrophils % 75.2 % (41.7-73.7) H 11/02/21 03:52 Lymphocytes % 9.3 % (15.3-44.8) L 11/02/21 03:52 Monocytes % 14.5 % (3.3-12.3) H 11/02/21 03:52 Eosinophils % 0.4 % (0-4.4) 11/02/21 03:52 Basophils % 0.6 % (0-1.3) 11/02/21 03:52 Absolute Neutrophils 6.3 K/uL (1.8-8.0) 11/02/21 03:52 Absolute Lymphocytes 0.8 K/uL (0.7-4.9) 11/02/21 03:52 Absolute Monocytes 1.2 K/uL (0.1-1.3) 11/02/21 03:52 Absolute Eosinophils 0.0 K/uL (0-0.5) 11/02/21 03:52 Absolute Basophils 0.0 K/uL (0-0.5) 11/02/21 03:52 Diff Path Review Cancelled 11/01/21 18:20 Sodium 142 mmol/L (136-145) 11/02/21 03:52 Potassium 3.6 mmol/L (3.5-5.1) 11/02/21 03:52 Chloride 104 mmol/L (98-107) 11/02/21 03:52 Carbon Dioxide 34 mmol/L (21-32) H 11/02/21 03:52 Anion Gap 7.6 mEq/L (5.0-15.0) 11/02/21 03:52 BUN 15 mg/dL (7-18) 11/02/21 03:52 Creatinine 0.91 mg/dL (0.55-1.3) 11/02/21 03:52 Est GFR (CKD-EPI) 85 ml/min (=/>90) L 11/02/21 03:52 Glucose 117 mg/dL (74-106) H 11/02/21 03:52 Calcium 8.3 mg/dL (8.5-10.1) L 11/02/21 03:52 Magnesium 2.4 mg/dL (1.8-2.4) 11/02/21 03:52 Troponin I High Sens 37.3 pg/mL (<58.9) 11/02/21 03:52 NT-Pro-B Natriuret Pep 585 pg/mL (<450) H 11/01/21 18:58 Triglycerides 67 mg/dL (<150) 11/02/21 03:52 Cholesterol 108 mg/dL (<200) 11/02/21 03:52 LDL Cholesterol, Calc 46 mg/dL (<130) 11/02/21 03:52 HDL Cholesterol 49 mg/dL (40-60) 11/02/21 03:52 Cholesterol/HDL Ratio 2.20 11/02/21 03:52 TSH 2.080 uIU/mL (0.360-3.740) 11/01/21 18:58 Urine Color Yellow (Yellow) 11/02/21 11:10 Urine Appearance Clear (Clear) 11/02/21 11:10 Urine pH 8.0 (5.0-7.0) H 11/02/21 11:10 Ur Specific [place] 1.020 (1.005-1.030) 11/02/21 11:10 Glucose (UA)(Auto) Negative (Negative) 11/02/21 11:10 Urine Ketones Negative (Negative) 11/02/21 11:10 Urine Blood 2+ (Negative) H 11/02/21 11:10 Urine Nitrite Negative (Negative) 11/02/21 11:10 Urine Bilirubin Negative (Negative) 11/02/21 11:10 Urine Urobilinogen 2.0 mg/dL (0.2-1.0) H 11/02/21 11:10 Ur Leukocyte Esterase Negative (Negative) 11/02/21 11:10 Urine RBC 20-50 /HPF (NONE SEEN) H 11/02/21 11:10 Urine WBC <5 /HPF (<5) 11/02/21 11:10 Ur Squamous Epith Cells <5 /HPF (NONE SEEN) 11/02/21 11:10 Urine Bacteria <20 /HPF (NONE SEEN) 11/02/21 11:10 Urine Culture Reflexed Not needed 11/02/21 11:10 Urine Total Protein Negative (Negative) 11/02/21 11:10 Influenza Type A RNA Cancelled 11/01/21 22:00 Influenza Type B RNA Cancelled 11/01/21 22:00 SARS-CoV-2 RNA (RT-PCR) Cancelled 11/01/21 22:00 SARS-CoV-2 Rap RNA(RT-PCR) Positive (NEGATIVE) A 11/01/21 22:00 Medications List Reviewed: Yes Assessment And Plan - Plan Physical Exam: General: Alert, In no apparent distress HEENT: Atraumatic, Normocephalic Respiratory: Clear to auscultation bilaterally, Normal air movement Cardiovascular: Normal pulses, Regular rate/rhythm Gastrointestinal: Normal bowel sounds, Soft and benign Integumentary: No rashes, No breakdown, No significant lesion Conclusions/Impression: Assessment/plan COVID-19 infection Currently on 2 L of oxygen via nasal cannula. Recommend starting remdesivir 200 mg IV loading dose then 100 mg IV x2-4 days depending on clinical progression. -Recommend also obtaining LFTs. Continue oxygen supplementation as needed Congestive heart failur, atrial fibrillation, hematuria, debility/weakness Medical management per primary team Plan of care discussed Dr. Hernandez Thank you for consultation
--- NOTE | 2021-11-05 13:28 | P.CNS ---
Date of Consult: 11/05/21 Reason for Consult: gross hematuria Requesting Physician: Jorgito Neal Primary Care Provider: Dr. 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 He was admitted for CHF exacerbation and started on Lasix as well as Lovenox. Yesterday, he went to the toilet and observed a significant degree of blood/bloody urine in his undergarment. He then voided into the toilet, but he was unable to clarify whether there was blood seen in the toilet/gross hematuria. He was also unable to describe whether he might of had a degree of incontinence while lying in the bed. He denied any associated dysuria or perineal discomfort. He denies any bothersome urinary symptoms noting no significant urinary frequency, no weak stream, no need to strain to void, and nocturia x1-2. He does acknowledge some mild urgency to void. Past medical history as above Past surgical history left shoulder orthopedic repair and appendectomy He denies any family history of urologic malignancy He is a former smoker Examination: While he is alert, awake, and oriented x3, he had extremely slowed speech with delayed/impaired thoughts and communication which prolonged the HPI and evaluation He was sitting upright in a chair eating breakfast at the time of my evaluation. There was no dyspnea or sign of respiratory distress He was able to stand on his own but with a degree of instability noted Significant residual lower extremity edema noted Genitalia: Circumcised without lesion. Orthotopic meatus patent without discharge or evidence of gross bleeding at this time. Scrotum normal without any bleeding vessels evident at this time though some varicosities noted. Testes bilaterally descended without mass and nontender. 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 -Recommend bladder scan postvoid residual assessment be performed to ensure absence of significant volume urinary retention (<150 to 200 cc) -CT urogram recommended and helpful if it can be performed as an inpatient prior to his discharge to expedite outpatient evaluation of his gross hematuria -Follow-up within 3 weeks of discharge for cystoscopic evaluation Patient provided the number of [phone] to contact him to schedule Allergies No Known Allergies Allergy (Unverified 11/01/21 18:19) Home Medications: Eszopiclone [Lunesta] 2 mg PO BEDTIME 11/02/21 Felodipine [Plendil] 10 mg PO DAILY 11/02/21 Pantoprazole Sodium 40 mg PO DAILY 11/02/21 Simvastatin 20 mg PO BEDTIME 11/02/21 Torsemide [Demadex*] 20 mg PO DAILY 11/02/21 Apixaban [Eliquis] 5 mg PO BID #60 tablet 11/04/21 Benzonatate [Tessalon Perle*] 100 mg PO TID PRN #30 cap 11/04/21 Metoprolol Tartrate [Lopressor*] 12.5 mg PO BID 6AM 6PM #60 tab 11/04/21 - Past Medical/Surgical History Diabetic: No -: CHF -: HTN -: GERD -: L shoulder rotator cuff -: Appendectomy Psychosocial/ Personal History: Patient is . - Family History Mother Medical History: Lung disease - Social History Smoking Status: Former smoker Alcohol use: Yes CD- Drugs: No Caffeine use: Yes Place of Residence: Home Physical Examination Temp Pulse Resp BP Pulse Ox 97.9 F 67 20 114/47 L 95 11/05/21 12:00 11/05/21 12:00 11/05/21 12:00 11/05/21 12:00 11/05/21 12:00
--- NOTE | 2021-11-05 17:33 | P.PN ---
Subjective Date of Service: 11/05/21 Primary Care Provider: Dr. Sahil Pelayo Chief Complaint: gross urethral bleeding He had an unwitnessed fall overnight, and also noted gross hematuria. He was evaluated by our overnight staff with a CT head, which was negative for intracranial bleed. He denies loss of consciousness. This morning, he reports that his breathing continues to improve daily. His net I/O are -3.17 L since admission. Review of Systems General: Unremarkable Eyes: Unremarkable ENT: Unremarkable Respiratory: Cough, Shortness of Breath, Unremarkable Cardiovascular: Unremarkable Gastrointestinal: Unremarkable Genitourinary: Unremarkable Musculoskeletal: Unremarkable Integumentary: Unremarkable Neurological: Weakness Physical Examination - Vital Signs Temperature: 99.3 F Blood Pressure: 108/58 Pulse: 72 Respirations: 20 Pulse Ox (%): 99 - Physical Exam General: Alert, In no apparent distress, Oriented x3 HEENT: Atraumatic, Mucous membr. moist/pink Neck: Supple, Without JVD or thyroid abnormality Respiratory: Diminished, Crackles/rales (faint bibasilar) Cardiovascular: Normal pulses, Normal S1 S2, No gallops, No rubs, No murmurs, Edema (1-2+ bilateral.) Gastrointestinal: Normal bowel sounds, Soft and benign, No tenderness, No rebound, No guarding Musculoskeletal: No clubbing Integumentary: No rashes Neurological: Normal speech, Normal affect - Studies Medications List Reviewed: Yes Assessment And Plan - Plan (1) Acute on chronic systolic CHF (congestive heart failure) Current Visit: Yes Status: Acute (2) New onset a-fib Current Visit: Yes Status: Acute (3) Anasarca Current Visit: Yes Status: Acute (4) Hypertension Current Visit: Yes Status: Chronic Qualifiers: Hypertension type: primary hypertension Qualified Code(s): I10 - Essential (primary) hypertension - Plan - Cardiology consulted and spoke with Dr. Forde - Recommends starting beta-alura and anticoagulation for atrial fibrillation - Started on metoprolol and apixaban - Apixaban is on hold given gross hematuria - Will add losartan today given systolic CHF - Consulted Urology and notified Dr. Walters - Recommends a CT urogram, which is pending - Had an unwitnessed fall on 11/04 = CT head was unremarkable - TTE = mildly depressed left ventricular ejection fraction 45 to 50%. Mild global hypokinesis. Mild atrial, mitral, and tricuspid regurgitation. Mild pulmonary insufficiency. - Continue IV furosemide. Monitor intake and output. - Net I/O -3.17 L - Telemetry - COVID-19 infection - PRN guaifenesin, benzonatate - Reconcile and continue home medications - Monitor and replete electrolytes per protocol - Full code Jorgito Neal MD
[2021-11-05 20:52] LABS: Arterial Blood Carboxyhemoglob 1.1 % (0-1.5); Blood Gas Oxyhemoglobin 90.7 % (94-97); Blood O2 Saturation 92.7 % (92-98.5)
--- NOTE | 2021-11-05 21:04 | PN ---
Date of Progress Note: 11/05/2021 Subjective: Seen by bedside, appears ill with shortness of breath, requiring oxygen, hypoxic, and wi th significant lower extremity edema. Review of Systems: Shortness of breath and cough and lower extremity edema and fever. No nausea, vomiting, or diarrhea. All other systems reviewed are negative. Physical Examination: Vital Signs: Showed a temperature of 97.9, pulse 67, breathing at 20, blood pressure 114/77, 95% wit h oxygen. General: He is an elderly male, no apparent distress. Head and Neck: Pupils are equal, reactive to light. Intact eye movements. Positive JVD. No cervic al lymphadenopathy. Neck is supple. Thyroid is not enlarged. Lungs: Rhonchi bilaterally. No accessory muscle use or muscle retraction. Heart: Irregular. No extra sounds. Abdomen: Soft, nontender. Bowel sounds positive. No organomegaly. No masses or hernia. No rigidi ty or rebound. Extremities: No clubbing or cyanosis. Intact pulses. Skin: No rash. Neurologic: Alert, awake. No acute focal deficits appreciated. Investigations: On echo, there is EF of 45% to 50% with mild global hypokinesis. His creatinine is 1.01. His troponins are 118 and then 208 today. Patient is COVID positive. Assessment And Recommendations: 1.Acute on chronic systolic congestive heart failure exacerbation. Recommend to keep him on the dry side. He is on currently torsemide. I will recommend to change the torsemide to Lasix IV 40 mg q.8 hours and once his fluid status is better managed, then switch him back to oral form. 2.Atrial fibrillation. The rate is controlled and the patient is appropriately on apixaban. Contin ue current dosing. He is on metoprolol 12.5 twice a day and heart rate is controlled. I will contin ue with the current dose. 3.COVID pneumonia, being managed by the hospitalist team. I will follow the patient with you. Thank you for the consult. /KALPANA Voice ID: [id number] Report ID: [id number]
--- NOTE | 2021-11-05 23:18 | RAD REPORT ---
EXAM DESCRIPTION: CT - Abdomen Pelvis W/Wo Contrast - 11/05/2021 10:43 pm CLINICAL HISTORY: Hematuria COMPARISON: 2013 TECHNIQUE: Computed axial tomography of the abdomen and pelvis was obtained. Unenhanced and enhanced images were taken. 100 cc Isovue 300 was administered intravenously. Images were obtained in arteria l, venous and delayed phases. Coronal reconstruction was performed. Oral contrast given All CT scans are performed using dose optimization technique as appropriate and may include automated exposure control or mA/KV adjustment according to patient size. FINDINGS: A genitourinary calculus is not seen. Hydronephrosis is not noted. The kidneys demonstrate symmetric and excretion of contrast. Renal mass is not seen. A subtle 4 millimeter area of mucosal irregularity involves the right inferior posterior aspect of th e bladder near the UVJ. The liver, spleen, pancreas and left adrenal gland appear unremarkable. Small adenoma right adrenal gland There is no evidence of diverticulitis. Small to moderate umbilical hernia containing fat IMPRESSION: Subtle 4 millimeter area of mucosal irregularity involving the right inferior posterior aspect the bladder could indicate mild inflammation or mass. Followup ultrasound in 3 months recomme nded for re-evaluation. Given the history of hematuria direct visualization may be helpful
[2021-11-06 05:14] LABS: Arterial Blood Carboxyhemoglob 1.2 % (0-1.5); Blood Gas Oxyhemoglobin 93.5 % (94-97); Blood O2 Saturation 95.8 % (92-98.5)
[2021-11-06 05:15] LABS: Hematocrit 41.3 % (39.6-49.0); MCV 99.5 fL (80-100); MPV 7.9 fL (7.6-11.3); RBC Red Blood Cell Count 4.15 M/uL (4.33-5.43)
[2021-11-06 05:30] LABS: Albumin 2.8 g/dL (3.4-5.0); Bilirubin Total 0.8 mg/dL (0.2-1.0); Protein, Total 6.3 g/dL (6.4-8.2)
[2021-11-06] MEDS: METOPROLOL TAR 25 MG TAB PO SCH ×2 (06:15→17:28)
[2021-11-06] MEDS: FUROSEMIDE 40 MG/4 ML VIAL IV SCH ×4 (06:59→21:10)
[2021-11-06] MEDS: GUAIFENESIN 600 MG SA TAB PO SCH ×2 (09:15→21:11)
[2021-11-06] MEDS: APIXABAN 5 MG TABLET PO SCH (09:15)
[2021-11-06] MEDS: LOSARTAN POTASSIUM 50 MG TABLET PO SCH (09:15)
--- NOTE | 2021-11-06 10:57 | P.PN ---
Subjective Date of Service: 11/06/21 Primary Care Provider: Dr. Sahil Pelayo Chief Complaint: gross urethral bleeding Overnight, he became confused/altered. An ABG was performed which revealed hypercapnia. He was placed on BiPAP. Additionally, his CT urogram was concerning for a bladder lesion. This morning, he is alert and oriented. He states that the BiPAP mask is uncomfortable, and he would like it to be removed. His net I/O are -3.19 L since admission. Review of Systems General: Unremarkable Eyes: Unremarkable ENT: Unremarkable Respiratory: Cough, Shortness of Breath Cardiovascular: Unremarkable Gastrointestinal: Unremarkable Genitourinary: Hematuria Musculoskeletal: Pedal edema Integumentary: Unremarkable Neurological: Confusion Physical Examination - Vital Signs Temperature: 98.5 F Blood Pressure: 107/56 Pulse: 72 Respirations: 18 Pulse Ox (%): 96 - Physical Exam General: Alert, Oriented x3, Mild distress HEENT: Atraumatic, Mucous membr. moist/pink, EOMI Neck: Supple, JVD not distended Respiratory: Diminished, Crackles/rales Cardiovascular: Regular rate/rhythm, No gallops, No rubs, No murmurs, Edema (1-2+) Gastrointestinal: Normal bowel sounds, Soft and benign, No tenderness, No rebound, No guarding Musculoskeletal: No clubbing Neurological: Normal speech, Cranial nerves 3-12 intact, Normal affect - Studies Medications List Reviewed: Yes Assessment And Plan - Plan (1) Acute Hypercapnic Respiratory Failure suspect due to Acute on chronic systolic CHF (congestive heart failure) Current Visit: Yes Status: Acute (2) New onset a-fib Current Visit: Yes Status: Acute (3) Anasarca Current Visit: Yes Status: Acute (4) Hypertension Current Visit: Yes Status: Chronic Qualifiers: Hypertension type: primary hypertension Qualified Code(s): I10 - Essential (primary) hypertension - Plan - Cardiology consulted and spoke with Dr. Isaac - Recommends starting beta-laura and anticoagulation for atrial fibrillation - Started on metoprolol and apixaban - Apixaban on hold given gross hematuria and possible Urologic intervention - Resume anticoagulation once cleared by Cardiology and Urology - Continue losartan - Consulted Urology and notified Dr. Walters - recommendations appreciated - CT urogram = "subtle 4 millimeter area of mucosal irregularity involving the right inferior posterior aspect the bladder could indicate mild inflammation or mass. Followup ultrasound in 3 months recommended for re-evaluation. Given the history of hematuria direct visualization may be helpful" - Infectious Diseases consulted - recommendations appreciated - Recommend starting remdesivir, but unable to order as it is not available on the EMR - Spoke with Brigid in pharmacy and she was able to verbal order the remdesivir - He will receive 200 mg today, followed by 100 mg daily x 4 days - Had an unwitnessed fall on 11/04 = CT head was unremarkable - TTE = mildly depressed left ventricular ejection fraction 45 to 50%. Mild global hypokinesis. Mild atrial, mitral, and tricuspid regurgitation. Mild pulmonary insufficiency. - Continue IV furosemide. Monitor intake and output. - Net I/O -3.17 L - Telemetry - COVID-19 infection - PRN guaifenesin, benzonatate - Reconcile and continue home medications - Monitor and replete electrolytes per protocol - Full code I have tried to contact his , Ms. Maria Esther Maria, and his brother, Mr. Aditya Maria, two times each, without success. I will be happy to speak with them if they call back. Jorgito Neal MD Discharge Plan: Home Plan to discharge in: Unknown - Code Status/Comfort Care Code Status Assessed: Yes Code Status: Full Code
[2021-11-06] MEDS ORDERED: REMDESIVIR (EUA) 200 MG in NA CHLORIDE 0.9% 250 ML IV ONE (15:15)
[2021-11-06 15:36] LABS: Arterial Blood Carboxyhemoglob 1.1 % (0-1.5); Blood Gas Oxyhemoglobin 96.8 % (94-97)
--- NOTE | 2021-11-06 20:41 | PN ---
Date of Progress Note: 11/06/2021 Subjective: Seen at bedside. He appears to be doing significantly better than yesterday after aggre ssive diuresis and still slightly lethargic, but comfortable, required BiPAP overnight and currently is on Lasix 40 mg IV q.8 hours. Review of Systems: Positive shortness of breath, orthopnea, cough, and low-grade fever. No nausea, vomiting, or diarrhe a. History of pyuria. He has significant lower extremity edema. All other systems reviewed and are negative. Physical Examination: Vital Signs: Showed a temperature of 98.5, pulse 72, breathing at 18, blood pressure is 107/56, satu rating 96%. General: Pleasant elderly male, in no apparent distress. Head and Neck: Pupils are equal, reactive to light. Intact eye movements. No JVD. No cervical lym phadenopathy. Neck: Supple. Thyroid is not enlarged. Lungs: Decreased breathing sounds with rhonchi bilaterally. No accessory muscle use or muscle retra ction. Heart: Irregularly irregular. No extra sounds. Abdomen: Soft, nontender. Bowel sounds positive. No organomegaly. No hernia appreciated. Extremities: No clubbing or cyanosis. Positive edema. Skin: No rashes. Neurologic: Alert, awake. No acute focal deficits appreciated. Investigations: BUN 28, creatinine is 0.967. Troponin is 157 and his hemoglobin 13.6. Assessment And Recommendations: 1.Acute on chronic systolic congestive heart failure exacerbation. He is doing significantly better now. Change Lasix to q.12 hours and monitor BUN, creatinine, and electrolytes. 2.Atrial fibrillation, rate is controlled. Continue metoprolol. Apixaban, I will stop due to hemat uria. This patient will be a good candidate for appendage closure as an outpatient. 3.Acute hypoxic respiratory failure due to combination of COVID pneumonia plus heart failure. He is doing significantly better with aggressive diuresis. We will monitor. SR/MODL Voice ID: [id number] Report ID: [id number]
[2021-11-06] MEDS: MELATONIN 5 MG TABLET PO PRN (21:10)
[2021-11-07 04:49] LABS: Hematocrit 40.5 % (39.6-49.0); MCV 98.5 fL (80-100); MPV 7.6 fL (7.6-11.3); RBC Red Blood Cell Count 4.11 M/uL (4.33-5.43)
[2021-11-07 04:57] LABS: Albumin 2.7 g/dL (3.4-5.0); Bilirubin Total 0.8 mg/dL (0.2-1.0); Magnesium 2.3 mg/dL (1.8-2.4); Potassium 3.5 mmol/L (3.5-5.1); Protein, Total 5.9 g/dL (6.4-8.2)
[2021-11-07] MEDS: METOPROLOL TAR 25 MG TAB PO SCH ×2 (06:00→17:50)
[2021-11-07] MEDS ORDERED: POTASSIUM 25 MEQ EFFERV TAB PO ONE (08:00)
[2021-11-07] MEDS: FUROSEMIDE 40 MG/4 ML VIAL IV SCH ×2 (09:18→20:00)
[2021-11-07] MEDS: GUAIFENESIN 600 MG SA TAB PO SCH ×2 (09:18→20:01)
[2021-11-07] MEDS: REMDESIVIR (EUA) 100 MG in NA CHLORIDE 0.9% 250 ML IV SCH (09:20)
[2021-11-07] MEDS: Enoxaparin 120 MG/0.8 ML SYR SQ SCH ×2 (10:11→20:01)
[2021-11-07] MEDS: LOSARTAN POTASSIUM 50 MG TABLET PO SCH (10:45)
--- NOTE | 2021-11-07 14:03 | P.PN ---
Subjective Date of Service: 11/07/21 Primary Care Provider: Dr. Sahil Pelayo Chief Complaint: gross urethral bleeding No acute events overnight. He is sitting upright and breathing comfortably on 3 L nasal cannula. He seems to have improved significantly from a clinical standpoint. He states that today is the best that he has felt so far. His and daughters were present this morning via phone. All questions were answered and they were updated on the plan of care. Review of Systems General: Unremarkable Eyes: Unremarkable ENT: Unremarkable Respiratory: Cough, Shortness of Breath Cardiovascular: Edema Gastrointestinal: Unremarkable Genitourinary: Unremarkable Musculoskeletal: Unremarkable Integumentary: Unremarkable Neurological: Unremarkable Physical Examination - Vital Signs Temperature: 96.7 F Blood Pressure: 101/52 Pulse: 63 Respirations: 24 Pulse Ox (%): 92 - Physical Exam General: Alert, In no apparent distress, Oriented x3 HEENT: Atraumatic, Mucous membr. moist/pink, EOMI, Sclerae nonicteric Neck: JVD not distended Respiratory: Diminished, Crackles/rales (faint bibasilar) Cardiovascular: Regular rate/rhythm, Normal S1 S2, No gallops, No rubs, No murmurs, Edema (2+ bilateral lower extremity pitting) Gastrointestinal: Normal bowel sounds, Soft and benign, No tenderness, No howard ound, No guarding Musculoskeletal: No clubbing Integumentary: No rashes Neurological: Normal speech, Normal affect - Studies Medications List Reviewed: Yes Assessment And Plan - Plan (1) Acute Hypercapnic Respiratory Failure suspect due to Acute on chronic systolic CHF (congestive heart failure) Current Visit: Yes Status: Acute (2) New onset a-fib Current Visit: Yes Status: Acute (3) Anasarca Current Visit: Yes Status: Acute (4) Hypertension Current Visit: Yes Status: Chronic Qualifiers: Hypertension type: primary hypertension Qualified Code(s): I10 - Essential (primary) hypertension - Plan - Cardiology consulted and spoke with Dr. Isaac - Recommends starting beta-laura and anticoagulation for atrial fibrillation - Started on metoprolol and apixaban - Apixaban on hold for possible Urologic intervention - Started on enoxaparin 1 mg/kg SQ q12 pending Urology recs - Continue losartan - Consulted Urology and notified Dr. Walters - recommendations appreciated - CT urogram = "subtle 4 millimeter area of mucosal irregularity involving the right inferior posterior aspect the bladder could indicate mild inflammation or mass. Followup ultrasound in 3 months recommended for re-evaluation. Given the history of hematuria direct visualization may be helpful" - Infectious Diseases consulted - recommendations appreciated - Recommend starting remdesivir, but unable to order as it is not available on the EMR - Spoke with Brigid in pharmacy and she was able to verbal order the remdesivir - Today is day #2 of 5 - Had an unwitnessed fall on 11/04 = CT head was unremarkable - TTE = mildly depressed left ventricular ejection fraction 45 to 50%. Mild global hypokinesis. Mild atrial, mitral, and tricuspid regurgitation. Mild pulmonary insufficiency. - Continue IV furosemide. Monitor intake and output. - Net I/O -5.38 L since admission - Telemetry - COVID-19 infection - PRN guaifenesin, benzonatate - Reconcile and continue home medications - Monitor and replete electrolytes per protocol - Full code I have updated his and daughters on the plan of care. Jorgito Neal MD Discharge Plan: Home Plan to discharge in: 48 Hours - Code Status/Comfort Care Code Status Assessed: Yes Code Status: Full Code
--- NOTE | 2021-11-07 20:08 | PN ---
Date of Progress Note: 11/04/2021 Subjective: Seen at bedside. He is appearing much more comfortable today. No distress and putting out large amount of urine. Review of Systems: No chest pain. Minimal shortness of breath on exertion. No orthopnea, nausea, vomiting, diarrhea. He has lower extremity edema. All other systems reviewed and are negative. Physical Examination: Vital Signs: Temperature is 97.6, pulse is 63, breathing at 24, blood pressure is 101/52, saturating 92%. General: Pleasant elderly male, in no apparent distress. Head and Neck: Pupils are equal, reactive to light. Intact eye movements. Positive JVD. No cervic al lymphadenopathy. Neck: Supple. Thyroid is not enlarged. Lungs: Decreased breathing sounds bilaterally. No accessory muscle use or muscle retraction. Heart: Irregularly irregular. No extra sounds. Abdomen: Soft, nontender. Bowel sounds positive. No organomegaly. No hernia appreciated. Extremities: No clubbing or cyanosis. Intact pulses. Skin: No rashes, but there is like 2 to 3+ edema. Neurologic: Alert, awake. No acute focal deficits appreciated. Lymph Nodes: No cervical or axillary lymphadenopathy. Investigations: His creatinine is 0.89 and BUN is 24. His hemoglobin is 13.5. Assessment And Recommendations: 1.Acute on chronic congestive heart failure exacerbation. The patient is putting out significant am ount of urine output. Continue on the Lasix 40 mg IV q.12 hours for one more day at least. 2.Atrial fibrillation. He is in flutter now with variable conduction. Rate is acceptable and he is on anticoagulation. 3.Acute hypoxic respiratory failure due to congestive heart failure and COVID pneumonia, gradually i mproving. Continue to monitor. SR/MODL Voice ID: [id number] Report ID: [id number]
[2021-11-07] MEDS: MELATONIN 5 MG TABLET PO PRN (21:05)
[2021-11-08 05:04] LABS: Hematocrit 39.9 % (39.6-49.0); MPV 7.9 fL (7.6-11.3); RBC Red Blood Cell Count 4.03 M/uL (4.33-5.43)
[2021-11-08 05:21] LABS: Albumin 2.7 g/dL (3.4-5.0); Bilirubin Total 1.1 mg/dL (0.2-1.0); Potassium 3.4 mmol/L (3.5-5.1); Protein, Total 6.1 g/dL (6.4-8.2)
[2021-11-08] MEDS: METOPROLOL TAR 25 MG TAB PO SCH ×2 (06:00→17:56)
[2021-11-08] MEDS: LOSARTAN POTASSIUM 50 MG TABLET PO SCH (08:11)
[2021-11-08] MEDS: REMDESIVIR (EUA) 100 MG in NA CHLORIDE 0.9% 250 ML IV SCH (08:11)
[2021-11-08] MEDS: FUROSEMIDE 40 MG/4 ML VIAL IV SCH ×2 (08:11→20:52)
[2021-11-08] MEDS: GUAIFENESIN 600 MG SA TAB PO SCH ×2 (08:12→20:52)
[2021-11-08] MEDS: Enoxaparin 120 MG/0.8 ML SYR SQ SCH ×2 (08:12→20:52)
[2021-11-08] MEDS ORDERED: POTASSIUM CL SA 10 MEQ TAB PO ONE ×3 (09:00→21:15)
--- NOTE | 2021-11-08 13:58 | EKG ---
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 MEASUREMENT RESULTS: Intervals: Rate: 73 WA: 338 QRSD: 128 QT: 410 QTc: 451 Randolph: P: 91 WA: 338 QRS: -67 T: -23 INTERPRETIVE STATEMENTS: Sinus rhythm with 1st degree AV block Left axis deviation Nonspecific intraventricular block Inferior infarct, age undetermined Cannot rule out Anteroseptal infarct, age undetermined Abnormal ECG Compared to ECG 11/01/2021 19:42:58 First degree AV block now present Atrial fibrillation no longer present Ventricular premature complex(es) no longer present Right bundle-branch block no longer present Left ventricular hypertrophy no longer present Myocardial infarct finding still present Electronically Signed On 11-08-21 13:50:32 CDT by Dale Isaac
--- NOTE | 2021-11-08 15:11 | P.PN ---
Subjective Date of Service: 11/08/21 Primary Care Provider: Dr. Sahil Pelayo Chief Complaint: gross urethral bleeding Patient seen and examined at bedside, currently on 3 L of oxygen via nasal cannula. Denies nausea/vomiting/diarrhea, shortness of breath, or chest pain. All lines are down, including WBC, hemoglobin, and platelet count. Continue to monitor closely. Patient remains afebrile. Also bicarb noted to be elevated on BMP, continue to monitor. Review of Systems 10-point ROS is otherwise unremarkable Physical Examination - Vital Signs Temperature: 97.2 F Blood Pressure: 128/64 Pulse: 73 Respirations: 20 Pulse Ox (%): 94 - Studies Laboratory Last Values WBC 8.3 K/uL (4.3-10.9) 11/02/21 03:52 RBC 4.23 M/uL (4.33-5.43) L 11/02/21 03:52 Hgb 14.0 g/dL (13.6-17.9) 11/02/21 03:52 Hct 41.8 % (39.6-49.0) 11/02/21 03:52 MCV 99.0 fL (80-100) 11/02/21 03:52 MCH 33.1 pg (27.0-35.0) 11/02/21 03:52 MCHC 33.5 g/dL (32.0-36.0) 11/02/21 03:52 RDW 16.1 % (12.1-15.2) H 11/02/21 03:52 Plt Count 206 K/uL (152-406) 11/02/21 03:52 MPV 7.5 fL (7.6-11.3) L 11/02/21 03:52 Neutrophils % 75.2 % (41.7-73.7) H 11/02/21 03:52 Lymphocytes % 9.3 % (15.3-44.8) L 11/02/21 03:52 Monocytes % 14.5 % (3.3-12.3) H 11/02/21 03:52 Eosinophils % 0.4 % (0-4.4) 11/02/21 03:52 Basophils % 0.6 % (0-1.3) 11/02/21 03:52 Absolute Neutrophils 6.3 K/uL (1.8-8.0) 11/02/21 03:52 Absolute Lymphocytes 0.8 K/uL (0.7-4.9) 11/02/21 03:52 Absolute Monocytes 1.2 K/uL (0.1-1.3) 11/02/21 03:52 Absolute Eosinophils 0.0 K/uL (0-0.5) 11/02/21 03:52 Absolute Basophils 0.0 K/uL (0-0.5) 11/02/21 03:52 Diff Path Review Cancelled 11/01/21 18:20 Sodium 142 mmol/L (136-145) 11/02/21 03:52 Potassium 3.6 mmol/L (3.5-5.1) 11/02/21 03:52 Chloride 104 mmol/L (98-107) 11/02/21 03:52 Carbon Dioxide 34 mmol/L (21-32) H 11/02/21 03:52 Anion Gap 7.6 mEq/L (5.0-15.0) 11/02/21 03:52 BUN 15 mg/dL (7-18) 11/02/21 03:52 Creatinine 0.91 mg/dL (0.55-1.3) 11/02/21 03:52 Est GFR (CKD-EPI) 85 ml/min (=/>90) L 11/02/21 03:52 Glucose 117 mg/dL (74-106) H 11/02/21 03:52 Calcium 8.3 mg/dL (8.5-10.1) L 11/02/21 03:52 Magnesium 2.4 mg/dL (1.8-2.4) 11/02/21 03:52 Troponin I High Sens 37.3 pg/mL (<58.9) 11/02/21 03:52 NT-Pro-B Natriuret Pep 585 pg/mL (<450) H 11/01/21 18:58 Triglycerides 67 mg/dL (<150) 11/02/21 03:52 Cholesterol 108 mg/dL (<200) 11/02/21 03:52 LDL Cholesterol, Calc 46 mg/dL (<130) 11/02/21 03:52 HDL Cholesterol 49 mg/dL (40-60) 11/02/21 03:52 Cholesterol/HDL Ratio 2.20 11/02/21 03:52 TSH 2.080 uIU/mL (0.360-3.740) 11/01/21 18:58 Urine Color Yellow (Yellow) 11/02/21 11:10 Urine Appearance Clear (Clear) 11/02/21 11:10 Urine pH 8.0 (5.0-7.0) H 11/02/21 11:10 Ur Specific [place] 1.020 (1.005-1.030) 11/02/21 11:10 Glucose (UA)(Auto) Negative (Negative) 11/02/21 11:10 Urine Ketones Negative (Negative) 11/02/21 11:10 Urine Blood 2+ (Negative) H 11/02/21 11:10 Urine Nitrite Negative (Negative) 11/02/21 11:10 Urine Bilirubin Negative (Negative) 11/02/21 11:10 Urine Urobilinogen 2.0 mg/dL (0.2-1.0) H 11/02/21 11:10 Ur Leukocyte Esterase Negative (Negative) 11/02/21 11:10 Urine RBC 20-50 /HPF (NONE SEEN) H 11/02/21 11:10 Urine WBC <5 /HPF (<5) 11/02/21 11:10 Ur Squamous Epith Cells <5 /HPF (NONE SEEN) 11/02/21 11:10 Urine Bacteria <20 /HPF (NONE SEEN) 11/02/21 11:10 Urine Culture Reflexed Not needed 11/02/21 11:10 Urine Total Protein Negative (Negative) 11/02/21 11:10 Influenza Type A RNA Cancelled 11/01/21 22:00 Influenza Type B RNA Cancelled 11/01/21 22:00 SARS-CoV-2 RNA (RT-PCR) Cancelled 11/01/21 22:00 SARS-CoV-2 Rap RNA(RT-PCR) Positive (NEGATIVE) A 11/01/21 22:00 Medications List Reviewed: Yes Assessment And Plan - Plan Physical Exam: General: Alert, In no apparent distress HEENT: Atraumatic, Normocephalic Respiratory: Clear to auscultation bilaterally, Normal air movement Cardiovascular: Normal pulses, Regular rate/rhythm Gastrointestinal: Normal bowel sounds, Soft and benign Integumentary: No rashes, No breakdown, No significant lesion Conclusions/Impression: Assessment/plan COVID-19 infection Currently on 3 L of oxygen via nasal cannula. -On remdesivir day 3/5. AST mildly elevated, is downtrending. Continue oxygen supplementation as needed Congestive heart failure, atrial fibrillation, hematuria, debility/weakness Medical management per primary team Plan of care discussed Dr. Hernandez Thank you for consultation
--- NOTE | 2021-11-08 19:00 | PN ---
Date of Progress Note: 11/08/2021 Subjective: Seen by bedside. Continues to do gradually better and diuresing very well on Lasix. Review of Systems: Minimal shortness of breath and orthopnea, lower extremity edema. No nausea, vomiting, diarrhea. No abdominal pain. No dysuria, polyuria, or urinary urgency. All other systems reviewed are negative. Physical Examination: Vital Signs: Temperature is 97.2, pulse is 73, breathing at 18, blood pressure is 128/64, saturating 94% on room air. General: Pleasant elderly male, in no distress. Head and Neck: Pupils are equal, reactive to light. Intact eye movements. No JVD. No cervical lym phadenopathy. Neck is supple. Thyroid is not enlarged. Lungs: Clear to auscultation bilaterally. No rhonchi, wheezing, or crackles. No accessory muscle u se. Heart: Regular rate and rhythm. No extra sounds. Abdomen: Soft, nontender. Bowel sounds positive. No organomegaly. No masses or hernia. No rigidi ty or rebound. Extremities: No clubbing or cyanosis. Intact pulses. Skin: No rash. Neurologic: Alert, awake. No acute focal deficits appreciated. Lymph Nodes: No cervical or axillary lymphadenopathy. Investigations: CO2 level is 41, BUN 19, creatinine 0.78, and hemoglobin is 13.2. Assessment And Recommendations: 1.Acute on chronic congestive heart failure exacerbation. He will require more diuresis; however, h is CO2 level is going up, to hold Lasix for now and start him on acetazolamide 250 mg IV q.12 hours a nd monitor CO2 level. If CO2 level drops down to normal ranges, then resume the Lasix. 2.Acute hypoxic respiratory failure due to combination of heart failure and COVID pneumonia. Doing slightly better. 3.Atrial fibrillation. He is in flutter, now rate is acceptable. Continue current management with anticoagulation. SR/MODL Voice ID: [id number] Report ID: [id number]
[2021-11-08] MEDS: BENZONATATE 100 MG CAP PO PRN (20:52)
[2021-11-08] MEDS: ACETAMINOPHEN 500 MG TAB PO PRN (22:37)
[2021-11-08] MEDS: MELATONIN 5 MG TABLET PO PRN (22:38)
[2021-11-09 04:04] LABS: Magnesium 2.5 mg/dL (1.8-2.4); Potassium 3.7 mmol/L (3.5-5.1)
[2021-11-09 06:05] VITALS: BMI 35.9
[2021-11-09] MEDS: METOPROLOL TAR 25 MG TAB PO SCH ×2 (06:23→17:47)
[2021-11-09] MEDS: ACETAMINOPHEN 500 MG TAB PO PRN (08:15)
[2021-11-09] MEDS: Enoxaparin 120 MG/0.8 ML SYR SQ SCH ×2 (08:16→21:35)
[2021-11-09] MEDS: GUAIFENESIN 600 MG SA TAB PO SCH ×2 (08:16→21:35)
[2021-11-09] MEDS: FUROSEMIDE 40 MG/4 ML VIAL IV SCH (08:16)
[2021-11-09] MEDS: LOSARTAN POTASSIUM 50 MG TABLET PO SCH (08:18)
[2021-11-09] MEDS ORDERED: POTASSIUM CL SA 10 MEQ TAB PO ONE (09:00)
[2021-11-09 09:16] LABS: Albumin 2.6 g/dL (3.4-5.0); Bilirubin Direct 0.3 mg/dL (0-0.2); Bilirubin Total 0.7 mg/dL (0.2-1.0); Protein, Total 5.7 g/dL (6.4-8.2)
[2021-11-09] MEDS: REMDESIVIR (EUA) 100 MG in NA CHLORIDE 0.9% 250 ML IV SCH (09:49)
--- NOTE | 2021-11-09 11:23 | P.PN ---
Subjective Date of Service: 11/09/21 Primary Care Provider: Dr. Sahil Pelayo Chief Complaint: gross urethral bleeding Patient seen and examined at bedside, day 45 of remdesivir therapy. Liver enzymes within normal limits. No new CBC on today's lab. Creatinine stable. Patient afebrile, bicarb increased today. Recommend ABG. Review of Systems 10-point ROS is otherwise unremarkable Physical Examination - Vital Signs Temperature: 98.3 F Blood Pressure: 103/46 Pulse: 54 Respirations: 26 Pulse Ox (%): 92 - Studies Laboratory Last Values WBC 8.3 K/uL (4.3-10.9) 11/02/21 03:52 RBC 4.23 M/uL (4.33-5.43) L 11/02/21 03:52 Hgb 14.0 g/dL (13.6-17.9) 11/02/21 03:52 Hct 41.8 % (39.6-49.0) 11/02/21 03:52 MCV 99.0 fL (80-100) 11/02/21 03:52 MCH 33.1 pg (27.0-35.0) 11/02/21 03:52 MCHC 33.5 g/dL (32.0-36.0) 11/02/21 03:52 RDW 16.1 % (12.1-15.2) H 11/02/21 03:52 Plt Count 206 K/uL (152-406) 11/02/21 03:52 MPV 7.5 fL (7.6-11.3) L 11/02/21 03:52 Neutrophils % 75.2 % (41.7-73.7) H 11/02/21 03:52 Lymphocytes % 9.3 % (15.3-44.8) L 11/02/21 03:52 Monocytes % 14.5 % (3.3-12.3) H 11/02/21 03:52 Eosinophils % 0.4 % (0-4.4) 11/02/21 03:52 Basophils % 0.6 % (0-1.3) 11/02/21 03:52 Absolute Neutrophils 6.3 K/uL (1.8-8.0) 11/02/21 03:52 Absolute Lymphocytes 0.8 K/uL (0.7-4.9) 11/02/21 03:52 Absolute Monocytes 1.2 K/uL (0.1-1.3) 11/02/21 03:52 Absolute Eosinophils 0.0 K/uL (0-0.5) 11/02/21 03:52 Absolute Basophils 0.0 K/uL (0-0.5) 11/02/21 03:52 Diff Path Review Cancelled 11/01/21 18:20 Sodium 142 mmol/L (136-145) 11/02/21 03:52 Potassium 3.6 mmol/L (3.5-5.1) 11/02/21 03:52 Chloride 104 mmol/L (98-107) 11/02/21 03:52 Carbon Dioxide 34 mmol/L (21-32) H 11/02/21 03:52 Anion Gap 7.6 mEq/L (5.0-15.0) 11/02/21 03:52 BUN 15 mg/dL (7-18) 11/02/21 03:52 Creatinine 0.91 mg/dL (0.55-1.3) 11/02/21 03:52 Est GFR (CKD-EPI) 85 ml/min (=/>90) L 11/02/21 03:52 Glucose 117 mg/dL (74-106) H 11/02/21 03:52 Calcium 8.3 mg/dL (8.5-10.1) L 11/02/21 03:52 Magnesium 2.4 mg/dL (1.8-2.4) 11/02/21 03:52 Troponin I High Sens 37.3 pg/mL (<58.9) 11/02/21 03:52 NT-Pro-B Natriuret Pep 585 pg/mL (<450) H 11/01/21 18:58 Triglycerides 67 mg/dL (<150) 11/02/21 03:52 Cholesterol 108 mg/dL (<200) 11/02/21 03:52 LDL Cholesterol, Calc 46 mg/dL (<130) 11/02/21 03:52 HDL Cholesterol 49 mg/dL (40-60) 11/02/21 03:52 Cholesterol/HDL Ratio 2.20 11/02/21 03:52 TSH 2.080 uIU/mL (0.360-3.740) 11/01/21 18:58 Urine Color Yellow (Yellow) 11/02/21 11:10 Urine Appearance Clear (Clear) 11/02/21 11:10 Urine pH 8.0 (5.0-7.0) H 11/02/21 11:10 Ur Specific [place] 1.020 (1.005-1.030) 11/02/21 11:10 Glucose (UA)(Auto) Negative (Negative) 11/02/21 11:10 Urine Ketones Negative (Negative) 11/02/21 11:10 Urine Blood 2+ (Negative) H 11/02/21 11:10 Urine Nitrite Negative (Negative) 11/02/21 11:10 Urine Bilirubin Negative (Negative) 11/02/21 11:10 Urine Urobilinogen 2.0 mg/dL (0.2-1.0) H 11/02/21 11:10 Ur Leukocyte Esterase Negative (Negative) 11/02/21 11:10 Urine RBC 20-50 /HPF (NONE SEEN) H 11/02/21 11:10 Urine WBC <5 /HPF (<5) 11/02/21 11:10 Ur Squamous Epith Cells <5 /HPF (NONE SEEN) 11/02/21 11:10 Urine Bacteria <20 /HPF (NONE SEEN) 11/02/21 11:10 Urine Culture Reflexed Not needed 11/02/21 11:10 Urine Total Protein Negative (Negative) 11/02/21 11:10 Influenza Type A RNA Cancelled 11/01/21 22:00 Influenza Type B RNA Cancelled 11/01/21 22:00 SARS-CoV-2 RNA (RT-PCR) Cancelled 11/01/21 22:00 SARS-CoV-2 Rap RNA(RT-PCR) Positive (NEGATIVE) A 11/01/21 22:00 Medications List Reviewed: Yes Assessment And Plan - Plan Physical Exam: General: Alert, In no apparent distress HEENT: Atraumatic, Normocephalic Respiratory: Clear to auscultation bilaterally, Normal air movement Cardiovascular: Normal pulses, Regular rate/rhythm Gastrointestinal: Normal bowel sounds, Soft and benign Integumentary: No rashes, No breakdown, No significant lesion Conclusions/Impression: Assessment/plan COVID-19 infection Currently on 3 L of oxygen via nasal cannula. -On remdesivir day 4/5. LFTs within normal limits Continue oxygen supplementation as needed -Bicarb elevated, recommend ABG. Congestive heart failure, atrial fibrillation, hematuria, debility/weakness Medical management per primary team Plan of care discussed Dr. Hernandez Thank you for consultation
[2021-11-09] MEDS ORDERED: ALBUMIN HUMAN 25% 100 ML IV ONE (13:29)
--- NOTE | 2021-11-09 17:28 | PN ---
Date of Progress Note: 11/09/2021 Subjective: Seen by bedside. He is doing much better, sitting up in a chair, eating. Review of Systems: No chest pain. The patient has shortness of breath on exertion. Generally, he is weak with lower ex tremity edema. No nausea, vomiting, diarrhea. Has orthopnea. All other systems reviewed are negati ve. Physical Examination: Vital Signs: Reviewed. Head and Neck: Pupils are equal, reactive to light. Intact eye movements. No JVD. No cervical lym phadenopathy. Neck is supple. Thyroid is not enlarged. Lungs: Decreased breathing sounds with rhonchi bilaterally. No accessory muscle use or muscle retra ction Heart: Irregular. No extra sounds. Abdomen: Soft, nontender. Bowel sounds positive. No organomegaly. No masses or hernia. No rigidi ty or rebound. Extremities: No clubbing or cyanosis. 2+ pitting edema bilaterally. Neurologic: Alert, awake. No acute focal deficits appreciated. Lymph Nodes: No cervical or axillary lymphadenopathy. Investigations: Labs were reviewed. Assessment And Recommendations: 1.Acute on chronic congestive heart failure exacerbation, still requiring diuresis. I will __ Lasix today, put him on Diamox 250 mg IV q.12 hours as the CO2 level is getting very high. Repeat labs in the morning. 2.Elevated CO2 level due to diuresis and alkalosis due to that. We will give Diamox for the next 24 hours and reassess. 3.Acute hypoxic respiratory failure due to congestive heart failure and COVID. The congestive heart failure is much better and the patient is feeling generally much better. We will continue to monitor. SR/MODL Voice ID: [id number] Report ID: [id number]
[2021-11-09] MEDS: ACETAZOLAMIDE 500 MG IV IV SCH (21:34)
[2021-11-09] MEDS: BENZONATATE 100 MG CAP PO PRN (21:35)
--- NOTE | 2021-11-09 21:51 | P.PN ---
Date of Service: 11/08/21 Subjective No acute events overnight. He is sitting upright and breathing comfortably on 3 L nasal cannula. He seems to have improved significantly from a clinical standpoint. He states that today is the best that he has felt so far. His and daughters were present this morning via phone. All questions were answered and they were updated on the plan of care. Physical Examination - Vital Signs reviewed - Physical Exam General: Alert, In no apparent distress, Oriented x3 Respiratory: Diminished, Crackles/rales (faint bibasilar) Cardiovascular: Regular rate/rhythm, Normal S1 S2, No gallops, No rubs, No murmurs, Edema (2+ bilateral lower extremity pitting) Gastrointestinal: Normal bowel sounds, Soft and benign, No tenderness, No rebound, No guarding Extremity: No clubbing/cyanosis/positive edema 2+ Neurological: patient with generalized weakness Assessment And Plan - Assessment (1) Acute Hypercapnic Respiratory Failure suspect due to Acute on chronic systolic CHF (congestive heart failure) Current Visit: Yes Status: Acute (2) New onset a-fib Current Visit: Yes Status: Acute (3) Anasarca Current Visit: Yes Status: Acute (4) Hypertension Current Visit: Yes Status: Chronic Qualifiers: Hypertension type: primary hypertension Qualified Code(s): I10 - Essential (primary) hypertension - Plan 1. Echocardiogram reviewed 2. Cont with ARB & beta-laura 3. holding anticoagulation 4. Cardiology consultation appreciated 5. Aggressive diuresis 6. Strict I's and O's 7. Repeat CXR 8. Daily weights 9. Education regarding diet and treatment of congestive heart failure 10. Will continue medications for rate control 11. Wean to room air oxygen 12. Arrange for outpatient home health 13. Outpatient follow with Urology to evaluate for possible bladder mass 14. GI and DVT prophylaxis Discharge Plan: Home Plan to discharge in: 48 Hours - Code Status/Comfort Care Code Status Assessed: Yes Code Status: Full Code
--- NOTE | 2021-11-09 21:53 | P.PN ---
Date of Service: 11/09/21 Subjective patient is improving. He is wanting to go home. Would check room air oxygen arranged for physical therapy prior to discharge. Physical Examination - Vital Signs reviewed - Physical Exam General: Alert, In no apparent distress, Oriented x3 Respiratory: Diminished, Crackles/rales (faint bibasilar) Cardiovascular: Regular rate/rhythm, Normal S1 S2, No gallops, No rubs, No murmurs, Edema (2+ bilateral lower extremity pitting) Gastrointestinal: Normal bowel sounds, Soft and benign, No tenderness, No rebound, No guarding Extremity: No clubbing/cyanosis/positive edema 2+ Neurological: patient with generalized weakness Assessment And Plan - Assessment (1) Acute Hypercapnic Respiratory Failure suspect due to Acute on chronic systolic CHF (congestive heart failure) Current Visit: Yes Status: Acute (2) New onset a-fib Current Visit: Yes Status: Acute (3) Anasarca Current Visit: Yes Status: Acute (4) Hypertension Current Visit: Yes Status: Chronic Hypertension type: primary hypertension Qualified Code(s): I10 - Essential (primary) hypertension (5) Metabolic alkalosis Current Visit: Yes Status: Chronic - Plan 1. Echocardiogram reviewed 2. Cont with ARB & beta-laura 3. holding anticoagulation 4. Cardiology consultation appreciated 5. Holding Lasix and continuing with his acetazolamide. 6. Strict I's and O's 7. Repeat CXR 8. Daily weights 9. Education regarding diet and treatment of congestive heart failure 10. Will continue medications for rate control 11. Wean to room air oxygen 12. Arrange for outpatient home health 13. Outpatient follow with Urology to evaluate for possible bladder mass 14. GI and DVT prophylaxis Discharge Plan: Home Plan to discharge in: 48 Hours - Code Status/Comfort Care Code Status Assessed: Yes Code Status: Full Code
[2021-11-10] MEDS: METOPROLOL TAR 25 MG TAB PO SCH ×2 (06:35→18:34)
[2021-11-10 06:48] LABS: Absolute Lymphocytes (CBC) 0.7 K/uL (0.7-4.9); Hematocrit 41.7 % (39.6-49.0); MCV 99.4 fL (80-100); MPV 8.4 fL (7.6-11.3)
[2021-11-10 07:08] LABS: Albumin 2.9 g/dL (3.4-5.0); Bilirubin Direct 0.3 mg/dL (0-0.2); Bilirubin Total 0.7 mg/dL (0.2-1.0); Potassium 3.5 mmol/L (3.5-5.1); Protein, Total 6.2 g/dL (6.4-8.2)
[2021-11-10] MEDS: LOSARTAN POTASSIUM 50 MG TABLET PO SCH (10:38)
[2021-11-10] MEDS: GUAIFENESIN 600 MG SA TAB PO SCH ×2 (10:39→20:24)
[2021-11-10] MEDS: Enoxaparin 120 MG/0.8 ML SYR SQ SCH ×2 (10:40→20:23)
[2021-11-10] MEDS: ACETAZOLAMIDE 500 MG IV IV SCH ×2 (10:41→20:23)
[2021-11-10] MEDS: REMDESIVIR (EUA) 100 MG in NA CHLORIDE 0.9% 250 ML IV SCH (10:45)
--- NOTE | 2021-11-10 15:42 | P.PN ---
Subjective Date of Service: 11/10/21 Primary Care Provider: Dr. Sahil Pelayo Chief Complaint: gross urethral bleeding Subjective: Improving Patient seen and examined at bedside, completed remdesivir. Wishes to go home, is cleared for discharge from an infectious disease standpoint. Review of Systems 10-point ROS is otherwise unremarkable Physical Examination - Vital Signs Temperature: 97.6 F Blood Pressure: 107/53 Pulse: 54 Respirations: 30 Pulse Ox (%): 99 - Studies Medications List Reviewed: Yes Assessment And Plan - Plan Physical Exam: General: Alert, In no apparent distress HEENT: Atraumatic, Normocephalic Respiratory: Clear to auscultation bilaterally, Normal air movement Cardiovascular: Normal pulses, Regular rate/rhythm Gastrointestinal: Normal bowel sounds, Soft and benign Integumentary: No rashes, No breakdown, No significant lesion Conclusions/Impression: Assessment/plan COVID-19 infection Currently on 3 L of oxygen via nasal cannula. -Completed remdesivir Continue oxygen supplementation as needed -Bicarb elevated, recommend ABG. Congestive heart failure, atrial fibrillation, hematuria, debility/weakness Medical management per primary team Plan of care discussed Dr. Hernandez Thank you for consultation
[2021-11-10] MEDS ORDERED: POTASSIUM 25 MEQ EFFERV TAB PO ONE (16:00)
[2021-11-10] MEDS: MELATONIN 5 MG TABLET PO PRN (20:24)
[2021-11-10] MEDS: BENZONATATE 100 MG CAP PO PRN (20:24)
--- NOTE | 2021-11-10 22:56 | P.PN ---
Date of Service: 11/10/21 Subjective Patient is doing well. He is wanting to go home. spoke to the patient's instead of going to a [place] [facility] facility she is wanting him to go home. Will set up home health. If x-rays and labs are due on okay did anticipate discharge in the morning. Would check room air oxygen arranged for physical therapy prior to discharge. Physical Examination - Vital Signs reviewed - Physical Exam General: Alert, In no apparent distress, Oriented x3 Respiratory: Clear bilaterally Cardiovascular: Regular rate/rhythm, Normal S1 S2, No gallops, No rubs, No murmurs, Edema (2+ bilateral lower extremity pitting) Gastrointestinal: Normal bowel sounds, Soft and benign, No tenderness, No rebound, No guarding Extremity: No clubbing/cyanosis/positive edema 2+ Neurological: patient with generalized weakness but strength has increased Assessment And Plan - Assessment (1) Acute Hypercapnic Respiratory Failure suspect due to Acute on chronic systolic CHF (congestive heart failure) Current Visit: Yes Status: Acute (2) New onset a-fib Current Visit: Yes Status: Acute (3) Anasarca Current Visit: Yes Status: Acute (4) Hypertension Current Visit: Yes Status: Chronic Hypertension type: primary hypertension Qualified Code(s): I10 - Essential (primary) hypertension (5) Metabolic alkalosis Current Visit: Yes Status: Chronic - Plan 1. Echocardiogram reviewed 2. Cont with ARB & beta-laura 3. holding anticoagulation 4. Cardiology consultation appreciated 5. Holding Lasix and continuing with his acetazolamide. 6. Strict I's and O's 7. Repeat CXR 8. Daily weights 9. Education regarding diet and treatment of congestive heart failure 10. Will continue medications for rate control 11. Wean to room air oxygen 12. Arrange for outpatient home health 13. Outpatient follow with Urology to evaluate for possible bladder mass 14. GI and DVT prophylaxis Discharge Plan: Home Plan to discharge in: 48 Hours - Code Status/Comfort Care Code Status Assessed: Yes Code Status: Full Code
--- NOTE | 2021-11-10 23:07 | P.DS ---
Discharge Date: 11/11/21 Primary Care Provider: Dr. Sahil Pelayo Disposition: TRANSFER TO INPATIENT REHAB Discharge Condition: GOOD Reason for Admission: gross urethral bleeding Brief History of Present Illness: Patient is an 81-year-old male with PMH of CHF (unknown EF) and HTN who presented to the ED with complaints of bilateral leg swelling with fluid leakage and weight gain over the past 2-4 weeks. Patient reports that he takes a fluid pill prescribed by Dr. Pelayo but is not sure of the name. He had a nuclear stress test about 6 months ago that was normal (sees Maurisio). He reports having an echo in the past, but is not sure when. Patient was noted to be in afib on presentation but denies history of afib. BLE with 4+ pitting edema up to thighs. Chest xray showed mild CHF. pro BNP 385, troponin WNL. He was given 60 mg IV la six and therapeutic lovenox. Patient has diuresed appropriately and is already feeling relief. venous doppler negative for DVT. He is admitted for observation. Hospital Course: Patient has been treated very aggressively for his pneumonia. His clinical symptoms have improved. Patient also with heart failure and was diuresed extensively. During his hospital stay he also had hematuria. He had a bladder scan performed which revealed a questionable mass which he will need outpatient follow-up with Urology. Patient is clinically doing better but he is really weak. He will need to keep building his strength up. At this time, patient is stable for discharge to inpatient rehab. Vital Signs/Physical Exam: Temp Pulse Resp BP Pulse Ox 97.8 F 51 24 H 110/58 L 99 11/10/21 16:00 11/10/21 18:34 11/10/21 16:00 11/10/21 18:34 11/10/21 16:00 General: Alert, In no apparent distress, Oriented x3 Laboratory Data at Discharge: WBC 5.0 K/uL (4.3-10.9) D 11/10/21 06:36 Hgb 13.5 g/dL (13.6-17.9) L 11/10/21 06:36 Hct 41.7 % (39.6-49.0) 11/10/21 06:36 Plt Count 148 K/uL (152-406) L 11/10/21 06:36 Sodium 139 mmol/L (136-145) 11/10/21 06:36 Potassium 3.5 mmol/L (3.5-5.1) 11/10/21 06:36 BUN 12 mg/dL (7-18) 11/10/21 06:36 Creatinine 0.65 mg/dL (0.55-1.3) 11/10/21 06:36 Glucose 116 mg/dL (74-106) H 11/10/21 06:36 Magnesium 2.5 mg/dL (1.8-2.4) H 11/09/21 02:59 Total Bilirubin 0.7 mg/dL (0.2-1.0) 11/10/21 06:36 AST 27 U/L (15-37) 11/10/21 06:36 ALT 43 U/L (12-78) 11/10/21 06:36 Alkaline Phosphatase 69 U/L (45-117) 11/10/21 06:36 Triglycerides 67 mg/dL (<150) 11/02/21 03:52 Cholesterol 108 mg/dL (<200) 11/02/21 03:52 HDL Cholesterol 49 mg/dL (40-60) 11/02/21 03:52 Cholesterol/HDL Ratio 2.20 11/02/21 03:52 Home Medications: Benzonatate [Tessalon Perle*] 100 mg PO TID PRN #30 cap 11/04/21 Acetaminophen [Tylenol Extra Strength] 500 mg PO Q4H PRN 11/11/21 Enoxaparin Sodium [Lovenox 120 MG INJ] 120 mg SQ BID 11/11/21 Furosemide [Lasix*] 20 mg PO BIDL 11/11/21 Guaifenesin [Mucinex] 600 mg PO BID 11/11/21 Losartan Potassium [Cozaar] 25 mg PO DAILY 11/11/21 Melatonin 5 mg PO BEDTIME PRN PRN 11/11/21 Potassium Oral Tab [Klor-Con 10 mEq Tab] 20 meq PO BID 11/11/21 Timolol/Brimonidin/Dorzolam/Pf [Timol 0.5%-Brim 0.15%-Dorzo 2%] 1 drop OP BID 11/11/21 acetaZOLAMIDE [Diamox*] 250 mg PO BID 11/11/21 New Medications: Benzonatate [Tessalon Perle*] 100 mg PO TID PRN #30 cap PRN Reason: Cough Physician Discharge Instructions: OK TO DC IV AND DC to inpatient rehab FOLLOW-UP WITH PRIMARY CARE PROVIDER IN 1-2 WEEKS FOLLOW-UP WITH CARDIOLOGY IN 1-2 WEEKS FOLLOW-UP WITH PULMONARY IN 1-2 WEEKS Follow- up with Urology for further evaluation of bladder mass RETURN TO THE ER IF symptoms worsen CALL DR. PUENTES AT [phone] IF ANY QUESTIONS REGARDING HOSPITAL STAY. PLEASE CALL THE FLOOR AT [phone] IF ANY MEDICATION OR NURSING QUESTIONS. Diet: AHA Activity: Fall precautions Followup: Jeet Forde MD [ACTIVE - CAN ADMIT] - Sahil Pelayo MD [Primary Care Provider] - Time spent managing pt's care (in minutes): 35
[2021-11-11 04:21] LABS: Absolute Lymphocytes (CBC) 1.1 K/uL (0.7-4.9); Hematocrit 40.1 % (39.6-49.0); Lymphocytes % 23.9 % (15.3-44.8); MCV 98.9 fL (80-100); MPV 9.1 fL (7.6-11.3); RBC Red Blood Cell Count 4.05 M/uL (4.33-5.43)
[2021-11-11 04:35] LABS: Albumin 2.6 g/dL (3.4-5.0); Bilirubin Total 0.6 mg/dL (0.2-1.0); Magnesium 2.6 mg/dL (1.8-2.4); Potassium 3.7 mmol/L (3.5-5.1); Protein, Total 5.8 g/dL (6.4-8.2)
--- NOTE | 2021-11-11 07:48 | RAD REPORT ---
EXAM DESCRIPTION: David Single View11/11/2021 5:43 am CLINICAL HISTORY: Chest pain COMPARISON: November 04, 2021 FINDINGS: Minimal bilateral interstitial lung opacities Cardiomegaly IMPRESSION: Minimal interstitial pulmonary is suspected
[2021-11-11] MEDS ORDERED: FUROSEMIDE 40 MG TABLET PO SCH (09:00)
[2021-11-11] MEDS: LOSARTAN POTASSIUM 50 MG TABLET PO SCH (09:00)
[2021-11-11] MEDS ORDERED: acetaZOLAMIDE 250 MG TAB PO SCH (09:00)
[2021-11-11] MEDS ORDERED: POTASSIUM CL SA 10 MEQ TAB PO SCH (09:00)
[2021-11-11] MEDS: GUAIFENESIN 600 MG SA TAB PO SCH (09:42)
[2021-11-11] MEDS: FUROSEMIDE 20 MG TABLET PO SCH ×2 (09:43→17:08)
[2021-11-11] MEDS: Enoxaparin 120 MG/0.8 ML SYR SQ SCH (09:48)
[2021-11-11 16:50] VITALS: BP 98/49; TEMP 97.9
[2021-11-11 17:42] VITALS: O2SAT 96
--- OUTSIDE RECORDS SUMMARY | 2021-11-17 11:19 | XMS REPORT | Clinical Summary ---
:1940 Author Organization [facility] MD [facility] Address [address] [place] [address] Care Team Providers Name Role Phone MD Caitlin Primary Care Provider Unavailable MD Caitlin Unavailable Unavailable Allergies Active Allergy Reactions Severity Noted Date Comments Sulfamethoxazole (Bulk) 12/07/2015 Unkn own reaction Medications Medication Sig Dispensed Refills Start End Status Date Date BRINZOLAMIDE/BRIMONIDIN Apply 1 drop 0 Active E TART (SIMBRINZA to eye daily. OPHTHALMIC) One drop in each eye BID. aspirin 81 mg EC tablet Take 81 mg by 0 Active mouth daily. aspirin 500 mg EC Take 500 mg by 0 Active tablet mouth as needed. felodipine (PLENDIL) 10 Take 10 mg by 0 Active MG 24 hr tablet mouth daily. hydrochlorothiazide Take 12.5 mg 0 Active (HYDRODIURIL) 12.5 mg by mouth tablet daily. pantoprazole (PROTONIX) Take 40 mg by 0 Active 40 mg EC tablet mouth daily. simvastatin (ZOCOR) 20 Take by mouth 0 Active mg tablet at bedtime. UNABLE TO FIND 3 (three) 0 Activ e times a day. Med Name: Isoflex triamcinolone (KENALOG) Apply 80 g 3 06/22/19 Active 0.1% creamIndications: topically to 18 Atopic dermatitis, not affected otherwise specified area(s) twice daily. timolol (TIMOPTIC-XR) INSTILL 1 DROP 1 04/16/20 Active 0.5 % ophthalmic INTO BOTH EYES 18 gel-forming IN THE MORNING latanoprost (XALATAN) Administer 2 0 01/29/20 Active 0.005% ophthalmic drops to both 20 solution eyes daily. econazole (SPECTAZOLE) Apply 60 g 5 04/19/20 Active 1% creamIndications: topically to 20 Intertrigo affected area(s) twice daily. torsemide (DEMADEX) 20 Take 20 mg by 0 11/17/19 Active mg tablet mouth daily. 21 azelastine 205.5 mcg twice daily. 0 05/27/19 Active (0.15 %) spry 22 spironolactone TAKE 1 TABLET 3 09/30/19 D iscontinued (ALDACTONE) 25 mg BY MOUTH EVERY 021 (Not tablet DAY Applicable ) Active Problems No known active problems Encounters Date Type Specialty Care Team Description 06/09/2021 Office Visit Dermatology Francy Anderson MD Personal h istory of other malignant neoplasm of skin; Skin cancer scr eening; Seborrheic chantelle tosis; Melanocytic nev us of left lower limb including hip 06/09/2021 Travel 12/10/2020 Office Visit Dermatology Francy Anderson MD Personal h istory of other malignant neoplasm of skin; Skin cancer scr eening; Seborrheic chantelle tosis; Melanocytic nev us of left lower limb including hip; Lichenoid actin ic keratosis; Intertrigo 12/10/2020 Travel 11/26/2020 Orders Only Pain Medicine Judith Griffin RN after 11/01/2020 Surgical History Surgery Date Site/Laterality Comments BACK SURGERY 08/30/2019 - 09/29/2019 Social History Tobacco Use Types Packs/Day Years Used Date Former Smoker Cigarettes, Cigars 1969 - 987 Smokeless Tobacco: Never Used Alcohol Use Standard Drinks/Week Comments Yes 0 (1 standard drink = 0.6 oz pure alcoho l) weekly Alcohol Habits Answer Date Recorded How often do you have a drink containing alcohol? Not asked How many drinks containing alcohol do you have on a typical Not asked day when you are drinking? How often do you have six or more drinks on one occasion? 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 Oxygen Saturation 95% 12/10/2020 1:00 PM CDT Inhaled Oxygen Concentration - - Weight 125 kg (275 lb 9.2 oz) 12/10/2020 1:00 PM CDT Height - - Body Mass Index - - Plan of Treatment Date Type Specialty Care Team Description 06/08/2022 Office Visit Dermatology Francy Anderson M D [address], [place] [address] (Wo rk) Health Maintenance Due Date Last Done Comments COVID-19 Vaccination (3 - Booster for 12/26/2020 07/26/2020 , 06/28/2020 Moderna series) Results Not on fileafter 11/01/2020 Insurance Payer Benefit Plan Subscriber ID Effective Phone Address Typ e / Group Dates MEDICARE MEDICARE PART [id number] 2005-Pres [phone] [facility] Medicare A AND B ent [id number] [facility] [address] CITIZ[place] [employer] [id number] 2016-Pres [address] [employer] ONLY ent [id number] [place] [address] [phone] (Home) [phone] [place], [place] 8 (Work) [id number] [address] Personal/Famil Self 1940 [phone] (Home) [phone] [place], [place] 8 (Work) [phone] [address] Personal/Famil Self 1940 [phone] ([address]) [place] [address] 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
--- OUTSIDE RECORDS SUMMARY | 2021-11-17 11:20 | XMS REPORT | Continuity of Care Document ---
:[address] [facility] t Address [address] [place] [address] Care Team Providers Name Role Phone [phone] Primary Care Physician Unavailable Neeta JIMENEZ Attending Clinician NEETA Attending Clinician Unavailable Gaby RAINES, A Attending Clinician Payers Payer Name Policy Type Policy Number Effective Date Expiration Date S ource Problems This patient has no known problems. Allergies, Adverse Reactions, Alerts Allergy Allergy Status Severity Reaction(s) Onset Inactive Treating Comm ents Source Name Type Date Date Clinician Sulfamet Propensi Active Unknown Unive rs hoxazole ty to 12-06 reaction ity of (Bulk) adverse 00:00: [place] reaction 00 [facility] Social History Social Habit Start Date Stop Date Quantity Comments Source History of Cigarette Smoker Universi ty of tobacco use [facility] History [facility] University o f Alcohol Frequency [facility] History [facility] University o f Alcohol Std Blanka [facility] History [facility] University o f Alcohol Binge [facility] Tobacco use and 2021-06-09 2021-06-09 Smokeless tobacco Un iversity of exposure 00:00:00 00:00:00 non-user [facility] Alcohol intake 2021-06-09 2021-06-09 Current drinker Unive rsity of 00:00:00 00:00:00 of alcohol Blanka swift (finding) [facility] History SDOH 2021-06-09 2021-06-09 weekly University o f Alcohol Comment 00:00:00 00:00:00 [facility] Sex Assigned At [birth year] Universit y of 00:00:00 00:00:00 [place] MD Calix [facility] Smoking Status Start Date Stop Date Source Ex-smoker 2021-06-09 00:00:00 2021-06-09 00:00:00 Universi ty of [facility] Medications Ordered Filled Start Stop Current Ordering Indication Dosage Frequency Signature Comments Components Source Medication Medication Date Date Medication? Clinician (SIG) Name Name pantoprazol Yes 40mg Take 40 mg Univers e 2-09 by mouth ity of (PROTONIX) 11:28: daily. Blanka 40 mg EC 56 tablet [facility] simvastatin Yes Take by Uni vers (ZOCOR) 20 2-09 mouth at ity o f mg tablet 11:28: bedtime. [facility] UNABLE TO Yes 3 (three) Uni vers FIND 2-09 times a ity of 11:28: day. Med [place] [address] Name: Isoflex Chito [facility] BRINZOLAMID Yes 1[drp] Apply 1 U nivers E/BRIMONIDI 2-09 drop to ity o f [place] TART 11:27: [place]. [place] (SIMBRINZA 35 One drop OPHTHALMIC) in each Yogi so eye BID. [facility] felodipine Yes 10mg Take 10 mg U nivers (PLENDIL) 2-09 by mouth ity of 10 MG 24 hr 11:27: daily. Bhavani s tablet 35 MD Dale [facility] hydrochloro Yes 12.5mg Take 12.5 Univers thiazide 2-09 mg by ity of (HYDRODIURI 11:27: mouth [place] L) 12.5 mg 35 daily. MD chris Dale [facility] aspirin 81 Yes 81mg Take 81 mg U nivers mg EC 2-09 by mouth ity of tablet 11:26: daily. Blanka 45 MD Chito fernandez [facility] aspirin 500 Yes 500mg Take 500 U nivers mg EC 2-09 mg by ity of tablet 11:26: mouth as [place] 45 needed. MD Chito fernandez [facility] azelastine Yes twice Univer s 205.5 mcg 1-27 daily. ity of (0.15 %) 00:00: [place] spry 00 MD Chito fernandez [facility] torsemide Yes 20mg Take 20 mg Un socorro (DEMADEX) 7-19 by mouth ity of 20 mg 00:00: daily. [place] tablet 00 MD Chito fernandez [facility] econazole 2019-05 Yes Intertrigo Apply U nivers (SPECTAZOLE 2-20 topically ity of ) 1% cream 00:00: to [place] 00 affected MD area(s) Anderso twice n daily. [facility] latanoprost Yes 2[drp] Administer Univers (XALATAN) 9-30 2 drops to ity of 0.005% 00:00: both eyes [place] ophthalmic 00 daily. MD fred fernandez [facility] spironolact 2020- No TAKE 1 Uni vers one 09-29-12 TABLET BY ity of (ALDACTONE) 00:00: 00:00 MOUTH [place] 25 mg 00 :00 EVERY DAY MD chris fernandez [facility] timolol 2017-05 Yes INSTILL 1 Unive rs (TIMOPTIC-X 2-17 DROP INTO ity of R) 0.5 % 00:00: BOTH EYES [place] ophthalmic 00 IN THE MD gel-forming MORNING Yoginimo fernandez [facility] triamcinolo Yes Atopic Apply Uni vers ne 2-22 dermatitis, topically ity of (KENALOG) 00:00: not to [place] 0.1% cream 00 otherwise affected specified area(s) Anderso twice n daily. [facility] Vital Signs Vital Name Observation Time Observation Value Comments Source Systolic blood 2021-06-09 17:25:08 144 mm[Hg] Univer sity of pressure [facility] Diastolic blood 2021-06-09 17:25:08 72 mm[Hg] Unive rsity of pressure [facility] Heart rate 2021-06-09 17:25:08 60 /min Universi ty of [facility] Respiratory rate 2021-06-09 17:25:08 16 /min Univ ersity [facility] Body temperature 2020-12-10 18:00:00 36.61 Leigha [facility] MD [facility] Body weight 2020-12-10 18:00:00 125 kg [facility] MD [facility] Oxygen saturation in 2020-12-10 18:00:00 95 /min University Arterial blood by Blanka rooney Pulse oximetry Cancer Center Procedures This patient has no known procedures. Plan of Care Planned Activity Planned Date Details Comments Source Future Scheduled 2021-10-29 COVID-19 Vaccination Uni [facility] Test 10:18:35 (3 - Booster for MD [facility] Moderna series) [code Center = COVID-19 Vaccination (3 - Booster for Moderna series)] Encounters Start End Encounter Admission Attending Care Care Encounter Source Date/Time Date/Time Type Type Clinicians Facility Department ID 2021-07-08 Outpatient [facility] [id number] Common 14:09:04 [facility] 2021-06-09 2021-06-09 Office Neeta [id number] [facility] [place] [facility] 11:15:00 12:33:14 Visit Nellie [id number] ity of 3.412.2.7 [place] .[id number] .8 Chito fernandez [facility] 2021-06-09 2021-06-09 Outpatient RAQUEL SANTACRUZ MDA MDA [id number] 10:51:46 12:33:14 NELLIE fernandez 2021-06-09 2021-06-09 Travel 1.2.840.1 [id number] [facility] [place] [facility] 00:00:00 00:00:00 [id number] ity of 3.412.2.7 [id number] [place] .[id number] 084.8 .8 Chito fernandez [facility] 2020-12-10 2020-12-10 Outpatient RAQUEL SANTACRUZ MDA MDA [id number] 12:31:53 13:26:24 NELLIE fernandez 2020-12-10 2020-12-10 Office Clair Santacruz2.840.1 [id number] Univers 12:20:00 13:26:24 Visit Nellie [id number] ity of 3.412.2.7 [place] .3.070502 [facility] 2020-12-10 2020-12-10 Travel 1.2.840.1 [id number] Univers 00:00:00 00:00:00 [id number] ity of 3.412.2.7 [id number] [place] .[id number] 084.8 MD Martell8 [facility] 2020-11-26 2020-11-26 Orders Gaby, 1.2.840.1 [id number] [facility] [place] [facility] 00:00:00 00:00:00 Only Judith Srinivasan [id number] it y of 3.412.2.7 [place] .3.037722 MD Sadler [facility] 2020-04-15 2020-04-15 Outpatient RAQUEL SANTACRUZ MDA MDA [id number] 11:39:09 13:08:08 NELLIE fernandez 2020-04-15 2020-04-15 Outpatient RAQUEL SANTACRUZ MDA MDA [id number] 00:00:00 00:00:00 NELLIE fernandez 2020-02-12 2020-02-12 Outpatient RAQUEL SANTACRUZ MDA MDA [id number] 00:00:00 00:00:00 NELLIE fernandez Results This patient has no known results.
== END 2021-11-11 18:38 | DRG 291 ==
LOC: ER 17:14 → ERHOLD 21:30 → 2ND 23:05 → OBSVTOIN 11-02 12:00 → 4TH 11-02 19:12 → 3RD-ICU 11-06 20:00 → 4TH 11-08 13:30
PROVIDERS: ADMIT Internal Medicine Sleep Medicine; ATTEND Hospitalist
PROC: 5A09457 Assistance with Respiratory Ventilation, 24-96 Consecutive Hours, Continuous Positive Airway Pressure (ICD-10-PCS; principal; 2021-11-05)
DX: I11.0 Hypertensive heart disease with heart failure (principal); U07.1 COVID-19; J12.82 Pneumonia due to coronavirus disease 2019; J96.22 Acute and chronic respiratory failure with hypercapnia; J96.21 Acute and chronic respiratory failure with hypoxia; I50.43 Acute on chronic combined systolic (congestive) and diastolic (congestive) heart failure; I24.8 Other forms of acute ischemic heart disease; I48.92 Unspecified atrial flutter; E87.3 Alkalosis; K21.9 Gastro-esophageal reflux disease without esophagitis; I48.91 Unspecified atrial fibrillation; E78.5 Hyperlipidemia, unspecified; I27.20 Pulmonary hypertension, unspecified; R53.81 Other malaise; R31.0 Gross hematuria; E66.9 Obesity, unspecified; W19.XXXA Unspecified fall, initial encounter; Y92.239 Unspecified place in hospital as the place of occurrence of the external cause; Z87.891 Personal history of nicotine dependence; Z68.35 Body mass index [BMI] 35.0-35.9, adult
CPT/HCPCS: 36415; 70450; 71045; 74178; 80048; 80053; 80061; 80076; 81003; 81015; 82248; 82805; 83735; 83880; 84100; 84132; 84145; 84443; 84484; 85014; 85018; 85025; 85027; 93005; 93306; 93970; 94660; 94760; 96372; 96374; 97110; 97116; 97161; 97530; 99284; G0378; J0248; J1120; J1650; J1940; J7050; P9047; Q9967; U0003

== ENCOUNTER 2021-11-11 18:50 | Inpatient (IN) | payer OTHER, MEDICARE ==
--- NOTE | 2021-11-11 14:39 | R.PREADM ---
PRE-ADMISSION SCREENING FORM SCREENING DATE AND TIME 11/11/2021 11:59 (CDT) ANTICIPATED REHAB ADMISSION DATE 11/13/2021 REFERRING FACILITY [facility] REFERRAL DATE AND TIME 11/11/2021 11:59 (CDT) ACUTE ADMIT DATE 11/02/2021 Previous Rehabilitation(s): No. ACUTE FINANCIAL COMPLIANCE OFFICER/DC STUDENT SERVICES DEAN Jesenia Quinn REFERRING PHYSICIAN [facility] CLINICAL LIAISON Glenis Villalobos PHYSICIAN REVIEWER Dr. Jairo Gonsalves M.D. MR# [id number] NAME ALICIA LAM ADDRESS [address] [place] [address] PHONE [facility] [id number] DATE OF 1940 AGE 81 SSN# [id number] GENDER male MARITAL STATUS unknown race ADMIT FROM 02 - [facility] [place] PRE-HOSPITAL LIVING SETTING 01 - Home (private home/apt. board/care, assisted living, long-term, transitional living) HOME TYPE AND DETAILS Type of home: single family house # of levels in the residence: 2 # of steps within the residence: unknown # of steps to enter the residence: 0 PRE-HOSPITAL LIVING WITH Family/Relatives FAMILY SUPPORT Yes PRIMARY FAMILY CONTACT NAME Maria Esther Lam PRIMARY FAMILY CONTACT PHONE PRIMARY FAMILY CONTACT RELATIONSHIP Spouse PHONE PRIMARY FAMILY CONTACT ON ADM.? no IS PRIMARY FAMILY CONTACT AUTH. REP.? no 1ST EMERGENCY CONTACT Maria Esther Lam 1ST CONTACT PHONE 1ST CONTACT RELATIONSHIP Spouse PHONE 1ST CONTACT ON ADM. no IS 1ST CONTACT AUTH. REP.? no PHONE 2ND CONTACT ON ADM.? no PATIENT EMPLOYMENT STATUS Retired (for age) PATIENT EMPLOYER No Employer PAYOR INFORMATION: 1ST PAYOR NAME MEDICARE 1ST PAYOR PHONE 1ST PAYOR INJURY/ILLNESS DUE TO ACCIDENT? No ANOTHER REPUBLICAN RESPONSIBLE? No PRIMARY REHAB/ACUTE DIAGNOSIS: Acute on chronic systolic (congestive) heart failure (I50.23) ONSET DATE 11/01/2021 REHAB IMPAIRMENT CATEGORY (FELICITAS): 14 Cardiac does NOT meet 60% rule PRIMARY DIAGNOSIS-RELATED SURGERIES: none COMORBID REHAB/ACUTE DIAGNOSES: - Tier 3 Acute respiratory failure, unspecified whether with hypoxia or hypercapnia (J96.00) - Non-Tiered Generalized edema (R60.1) Atrial fibrillation and flutter (I48) Essential (primary) hypertension (I10) Alkalosis (E87.3) INTERVENTIONS: - Acute respiratory failure with hypoxemia and hypercapnia Maintain optimal positioning for respiratory support Maintain patent airway Obtain and evaluate labs Provide supplemental O2 Regular respiratory assesment Reposition pt frequently to maximize lung expansion - Acute on chronic systolic heart failure Administer medications as indicated by MD and monitor for effectiveness Assess/Monitor pt cardiac status IV diuresis - Afib Administer prescribed anticoagulants and monitor effectiveness Assess/Monitor pt cardiac and respiratory status regularly Monitor pt labs Vitals will be monitored regularly and IV medications administered as indicated by Physician - Anasarca Assess areas for edema Assess for s/s cardiac and respiratory distress Assess pt urine Daily Weights Assess/ Monitor patient BP/HR/lung sounds - Hypertension Administer medications indicated by physician and monitor for effectiveness. Implement healthy diet Increase physical activity Assess/ Monitor patient B/P regularly - Metabolic alkalosis Assess/ Monitor for s/s of seizures Monitor vital signs frequently Assess for signs of muscle weakness, tetany or decreased activity recordintake and outputto evaluate respiratory, fluid and electrolyte status RISK FOR COMPLICATIONS: - DVT Active and Passive ROM exercises Administer medications per MD order Assist patient with frequent position changes Elevate BLE - Skin Breakdown Encourage ambulation as tolerated Repositioning q 2 hours Use of pillows or foam wedges while in bed - Falls Assess for medication side effects Maintain call light within patient reach for easy access to nursing assistance Provide assistance getting out of bed and with ambulation Provide assistive devices - Pain Assist patient with frequent position changes at least every 2 hours Assess pt for pain and Administer prescribed pain medication as needed Anticipate the need for pain medication for optimal pain managment - Seizure Identify risk factors Provide safety measures Monitor for headaches - Respiratory Failure Administer supplemental O2 as needed Assess/ Monitor pt O2 sats - Cardiac Failure Assess/Monitor pt cardiac status - Fluid Overload Administer prescribed diuretics Monitor pt fluid intake Assess/ Monitor pt for s/s of fluid over load - Stroke Assess/ Monitor and maintain patient pain level Assess/ Monitor patient blood pressure - CHF Assess/ Monitor pt for s/s cardiac/respiratory distress SUMMARY OF ACUTE HOSPITALIZATION: Pt. is a 81 yo male of unknown race. On 11/01/2021 he was admitted to [facility] with diagnosis Acute on chronic systolic (ramya estive) heart failure (I50.23). His impairment category is Cardiac 09 - Cardiac Disorders (09). Pre-morbidly, Pt. was independent/mod-I in Locomotion and Self-Care; and he had good Endurance, Trans fers Control, Balance, and Safety Awareness. Currently, he has deficits of Locomotion, Safety Awareness, Balance, Transfers Control, Self-Care, an d Endurance. Pt. is now referred to [facility] for acute in-patient rehabilitation in order to maximize patient's functional independence in activities of daily living, strength, ROM, and mobi lity. Patient has realistic goal of being discharged at assistance level 6-Marylou to reside at Home with Fam jasmin/Relatives. PAST MEDICAL HISTORY Acute respiratory failure, unspecified whether with hypoxia or hypercapnia (J96.00) Alkalosis (E87.3) Atrial fibrillation and flutter (I48) Essential (primary) hypertension (I10) Generalized edema (R60.1) GERD PAST SURGICAL HISTORY: Left Shoulder surgery Appendectomy MEDICATION ALLERGIES: No Known Drug Allergies (NKDA) ENVIRONMENTAL ALLERGIES: - Substance Allergies None Known - Other Allergies None Known CODE STATUS: Full code WEIGHT/HEIGHT/BMI: WEIGHT 265 lbs HEIGHT 6' 0" BMI 35.9 DIET: - Diet Type Regular - Diet - Solid Texture Regular - Diet - Liquid Texture Regular - Tube Feed N/A None REVIEW OF SYSTEMS: - Gen Alert and awake Lying in bed No apparent distress Oriented to: person, time, and place - Vital Signs Temperature: 97.7 F SBP/DBP: 104/56 Pulse: 55 Resp: 16 Vital signs stable, afebrile - CVS RRR VITAL SIGNS Temperature: 97.7 F SBP/DBP: 104/56 Pulse: 55 Resp: 16 Vital signs stable, afebrile 11/11/2021 MEDICATIONS/TREATMENT: Other- See attached MAR (Medication Administration Record). CURRENT SPHINCTER CONTROL: Pre-hospital bladder status: unspecified # of bladder accidents in the last 7 days prior to screenin Pre-hospital bowel status: unspecified # of bowel accidents in the last 7 days prior to screenin Last Bowel Movement Date: 11/11/2021 CURRENT LOCOMOTION STATUS: distance walked 165 feet DETAILED CURRENT FUNCTIONAL STATUS: - Bladder accident frequency: 7-Ind - No accidents in the past 7 days - Bowel accident frequency: 7-Ind - No accidents in the past 7 days - Walking score based on distance walked: 0(N/A) score based on distance walked: 3(>=150ft) - Wheelchair score based on distance traveled: 0(N/A) QI SCORES: - Self-Care A. Eating 04-Supervision or touching assistance B. Oral hygiene 04-Supervision or touching assistance C. Toileting hygiene 03-Partial/moderate assistance E. Shower/bathe self 03-Partial/moderate assistance F. Upper body dressing 04-Supervision or touching assistance G. Lower body dressing 03-Partial/moderate assistance H. Putting on/taking off footwear 03-Partial/moderate assistance - Mobility A. Roll left and right 04-Supervision or touching assistance B. Sit to lying 04-Supervision or touching assistance C. Lying to sitting on side of bed 04-Supervision or touching assistance D. Sit to stand 03-Partial/moderate assistance E. Chair/xsc-ur-yomvz transfer 03-Partial/moderate assistance F. Toilet transfer 03-Partial/moderate assistance G. Car transfer 88-Not attempted due to medical condition or safety concerns I. Walk 10 feet 04-Supervision or touching assistance J. Walk 50 feet with two turns 04-Supervision or touching assistance K. Walk 150 feet 04-Supervision or touching assistance L. Walking 10 feet on uneven surfaces 88-Not attempted due to medical condition or safety concerns M. 1 step (curb) 88-Not attempted due to medical condition or safety concerns N. 4 steps 88-Not attempted due to medical condition or safety concerns O. 12 steps 88-Not attempted due to medical condition or safety concerns P. Picking up object 88-Not attempted due to medical condition or safety concerns R. Wheel 50 feet with two turns 09-Not applicable S. Wheel 150 feet 09-Not applicable - Bladder and Bowel Bladder continence 2-Incontinent less than daily Bowel continence 1-Occasionally incontinent - Endurance Fair - Balance Fair - Safety Awareness Fair CURRENT FUNC. DEFICITS: Self-Care, Mobility, Endurance, Balance, and Safety Awareness THERAPY NOTES FROM ACUTE CARE: Attached. SPECIAL NEEDS: - Safety Concerns Skin breakdown and Fall precautions needed due to skin breakdown risk, Poor balance, and Risk of inju ry - Respiratory Supplemental oxygen: 3 liters Nasal [place] - Fall Precautions Due to poor balance PRECAUTIONS: - Fall Precaution Bed alarm TABS alarm Wheel chair alarm - Cardiac Precaution Assess/Monitor blood pressure, heart rate, lower extremity edema, notify MD for shortness of breath o r chest pain Monitor patient for excessive elevation of heart rate and blood pressure during therapy - DVT Risk due to restricted mobility and age - Skin Breakdown Risk due to restricted mobility and age PATIENT NEEDS ACTIVE AND ONGOING THERAPEUTIC INTERVENTION OF MULTIPLE THERAPY DISCIPLINES, INCLUDING: - Dietary and Nutrition Adequate Nutrition. Nutritional Education. Nutritional Supplements. - Occupational Therapy Cognitive Retraining. Patient needs Occupational Therapy for a daily minimum of 1.5 hours at least 5 out of 7 days, to improve Activities of Daily Living, including: Eating, Grooming, Bathing, Dressing, Toileting, Toilet Transfers, Community Reintegration, Higher functional activities, Adaptive Equipme nt, Splinting, Household Tasks, and Other activities as determined. Visual Perceptual Training. - Physical Therapy Patient needs Physical Therapy for a daily minimum of 1.5 hours at least 5 out of 7 days, to improve: Mobility, Strengthening, Transfers, Stretching, ROM, Endurance, Ability to manage stairs, Gait, and Balance. PATIENT NEEDS CLOSE MEDICAL SUPERVISION BY A REHABILITATION PHYSICIAN FOR: Coordination of Treatment Team Medical and Co-Morbidity Management Respiratory/Airway Management Bowel and Bladder Management PATIENT REQUIRES 24X7 REHAB NURSING FOR MEDICAL AND FUNCTIONAL MGT. OF THE FOLLOWING DEFICITS: Patient requires 24x7 Rehabilitation Nursing for: Pain Issues, Identifying and preventing risk factor s, Monitoring and reporting current medical conditions, Assisting with ambulation and transfer, Jamal ting with all ADL-s, Teaching patients about disease process and medications, Family teaching, Provid ing safe environment, Bowel and Bladder Issues, Skin Integrity, and Medication Management PATIENT REQUIRES INTENSIVE, COORDINATED INTERDISCIPLINARY APPROACH TO REHAB: Patient needs Dietary and Nutrition Services for: Adequate Nutrition, Nutritional Supplements, and Nu tritional Education Patient needs Oracle Specialist and/or Case Management for: Discharge Planning, Arranging Home Equipmen t or Services, and Family Interventions PATIENT REHAB POTENTIAL: Esa LAM is able and expected to receive 3 hours of individualized therapy daily on at least 5 agapito ry 7 days Esa LAM's prognosis for significant practical improvement within a reasonable period of time appears Good Expected level of measurable improvement will be of a practical value to Esa LAM's functional capaci ty or adaptations to impairments Has a viable Discharge Plan Medically appropriate; condition is sufficiently stable to participate in intensive rehab program DISCHARGE PLAN: - Estimated Length of Stay (days) 10. - Consensus on plan Discharge plan has been discussed with primary caregiver. Patient/Family is in agreement with the galindo n. Primary caregiver is in agreement with the plan. - Patient/Family Goals Return home independently. - Planned Living Setting Upon Discharge Home, to live with Family/Relatives. Transitional Living. RECOMMENDED CARE LEVEL: IRF RECOMMENDATION DETAILS: Recommended Admission to Comprehensive Rehabilitation Program to Increase Functional [place] SCREENER'S COMPLETENESS CONFIRMATION: - Screening Confirmation The patient data collection on this preadmission screening form is finished PHYSICIANS REVIEW AND ADMISSION DETERMINATION Admit - Based on my review of the Pre-Admission Screening results, in my medical judgment and experie nce, I concur with the findings and recommend admission to [facility], as this patient requires an IRF level of care. SIGNATURE PANEL: Clinical Liaison - [electronically] signed by Glenis Villalobos on 11/11/2021 at 13:13 (CDT) Physician Reviewer - [electronically] signed by Dr. Jairo Gonsalves M.D. on 11/11/2021 at 14:38 (CDT )
[2021-11-11] MEDS ORDERED: ONDANSETRON 4 MG (ODT) TAB PO PRN (18:59)
[2021-11-11] MEDS ORDERED: Enoxaparin 120 MG/0.8 ML SYR SQ SCH (20:00)
[2021-11-11] MEDS: POTASSIUM CL SA 10 MEQ TAB PO SCH (20:35)
[2021-11-11] MEDS: acetaZOLAMIDE 250 MG TAB PO SCH (20:36)
[2021-11-11] MEDS: GUAIFENESIN 600 MG SA TAB PO SCH (20:36)
[2021-11-11] MEDS ORDERED: GUAIFENESIN/DM 5 ML UCUP PO PRN (21:45)
[2021-11-11] MEDS ORDERED: ALBUTEROL 2.5 MG/3 ML NEB SOL NEB PRN (21:45)
[2021-11-11] MEDS: BENZONATATE 100 MG CAP PO PRN (22:12)
[2021-11-12 03:24] LABS: Specific Gravity 1.015 (1.005-1.030); Urine Bilirubin Negative (Negative); Urine Blood Negative (Negative); Urine Clarity Clear (Clear); Urine Color Yellow (Yellow); Urine Glucose Negative (Negative); Urine Protein Negative (Negative)
[2021-11-12 03:41] LABS: Urine Bacteria <20 /HPF (<20); Urine RBC <5 /HPF (None Seen)
[2021-11-12 05:53] LABS: Absolute Lymphocytes (CBC) 0.9 K/uL (0.7-4.9); Hematocrit 38.8 % (39.6-49.0); Lymphocytes % 22.7 % (15.3-44.8); MCV 98.3 fL (80-100); MPV 8.6 fL (7.6-11.3); RBC Red Blood Cell Count 3.95 M/uL (4.33-5.43)
[2021-11-12 06:11] LABS: Albumin 2.6 g/dL (3.4-5.0); Magnesium 2.6 mg/dL (1.8-2.4); Potassium 3.5 mmol/L (3.5-5.1); Prealbumin 11.6 mg/dL (20-40)
[2021-11-12] MEDS: APIXABAN 5 MG TABLET PO SCH ×2 (07:37→20:33)
[2021-11-12] MEDS ORDERED: BRIMONIDINE TARTRATE 0.15% 5 ML OPTH SCH (08:00)
[2021-11-12] MEDS: LOSARTAN POTASSIUM 50 MG TABLET PO SCH (08:00)
[2021-11-12] MEDS ORDERED: TIMOLOL MALEATE 0.5% OPTH 5 ML BTL OPTH SCH (08:00)
[2021-11-12] MEDS ORDERED: DORZOLAMIDE 2% OPTH (10 ML) OPTH SCH (08:00)
[2021-11-12] MEDS: FUROSEMIDE 20 MG TABLET PO SCH ×2 (08:27→16:49)
[2021-11-12] MEDS: acetaZOLAMIDE 250 MG TAB PO SCH ×2 (08:28→20:33)
[2021-11-12] MEDS: GUAIFENESIN 600 MG SA TAB PO SCH ×2 (08:28→20:33)
[2021-11-12] MEDS: POTASSIUM CL SA 10 MEQ TAB PO SCH ×2 (08:29→20:33)
--- NOTE | 2021-11-12 10:01 | P.RH.PN ---
Estimated Length of Stay: 14 Expected Discharge Date: 11/25/21 Discharge Disposition Plan: Home Family Support: Yes Assisted Goal: Mobility, Transfers, Self Care Vital Signs: Last Vital Signs Temp 96.4 F L 11/12/21 07:40 Pulse 60 11/12/21 08:27 Resp 18 11/12/21 07:40 BP 110/55 L 11/12/21 08:27 Pulse Ox 99 11/12/21 07:40 Laboratory: Laboratory Last Values WBC 4.1 K/uL (4.3-10.9) L 11/12/21 05:31 RBC 3.95 M/uL (4.33-5.43) L 11/12/21 05:31 Hgb 12.9 g/dL (13.6-17.9) L 11/12/21 05:31 Hct 38.8 % (39.6-49.0) L 11/12/21 05:31 MCV 98.3 fL (80-100) 11/12/21 05:31 MCH 32.7 pg (27.0-35.0) 11/12/21 05:31 MCHC 33.3 g/dL (32.0-36.0) 11/12/21 05:31 RDW 14.9 % (12.1-15.2) 11/12/21 05:31 Plt Count 203 K/uL (152-406) 11/12/21 05:31 MPV 8.6 fL (7.6-11.3) 11/12/21 05:31 Neutrophils % 58.2 % (41.7-73.7) 11/12/21 05:31 Lymphocytes % 22.7 % (15.3-44.8) 11/12/21 05:31 Monocytes % 16.1 % (3.3-12.3) H 11/12/21 05:31 Eosinophils % 2.6 % (0-4.4) 11/12/21 05:31 Basophils % 0.4 % (0-1.3) 11/12/21 05:31 Absolute Neutrophils 2.4 K/uL (1.8-8.0) 11/12/21 05:31 Absolute Lymphocytes 0.9 K/uL (0.7-4.9) 11/12/21 05:31 Absolute Monocytes 0.7 K/uL (0.1-1.3) 11/12/21 05:31 Absolute Eosinophils 0.1 K/uL (0-0.5) 11/12/21 05:31 Absolute Basophils 0.0 K/uL (0-0.5) 11/12/21 05:31 Sodium 140 mmol/L (136-145) 11/12/21 05:31 Potassium 3.5 mmol/L (3.5-5.1) 11/12/21 05:31 Chloride 104 mmol/L (98-107) 11/12/21 05:31 Carbon Dioxide 32 mmol/L (21-32) 11/12/21 05:31 Anion Gap 7.5 mEq/L (5.0-15.0) 11/12/21 05:31 BUN 16 mg/dL (7-18) 11/12/21 05:31 Creatinine 0.67 mg/dL (0.55-1.3) 11/12/21 05:31 Est GFR (CKD-EPI) 94 ml/min (=/>90) 11/12/21 05:31 Glucose 106 mg/dL (74-106) 11/12/21 05:31 Calcium 8.2 mg/dL (8.5-10.1) L 11/12/21 05:31 Magnesium 2.6 mg/dL (1.8-2.4) H 11/12/21 05:31 Albumin 2.6 g/dL (3.4-5.0) L 11/12/21 05:31 Prealbumin 11.6 mg/dL (20-40) L 11/12/21 05:31 Urine Color Yellow (Yellow) 11/12/21 03:20 Urine Clarity Clear (Clear) 11/12/21 03:20 Urine pH 7.0 (5.0-7.0) 11/12/21 03:20 Ur Specific [place] 1.015 (1.005-1.030) 11/12/21 03:20 Glucose (UA)(Auto) Negative (Negative) 11/12/21 03:20 Urine Ketones Negative (Negative) 11/12/21 03:20 Urine Blood Negative (Negative) 11/12/21 03:20 Urine Nitrite Negative (Negative) 11/12/21 03:20 Urine Bilirubin Negative (Negative) 11/12/21 03:20 Urine Urobilinogen 4.0 mg/dL (0.2-1.0) H 11/12/21 03:20 Ur Leukocyte Esterase Negative (Negative) 11/12/21 03:20 Urine RBC <5 /HPF (None Seen) 11/12/21 03:20 Urine Red Cell Clumps Cancelled 11/12/21 01:05 Urine WBC <5 /HPF (<5) 11/12/21 03:20 Urine WBC Clumps Cancelled 11/12/21 01:05 Ur Squamous Epith Cells <5 /HPF (None Seen) 11/12/21 03:20 U Non-Squamous Epi Cells Cancelled 11/12/21 01:05 Ur Transition Epith Cell Cancelled 11/12/21 01:05 Ur Renal Epithelial Cell Cancelled 11/12/21 01:05 Calcium Carbonate Cryst Cancelled 11/12/21 01:05 Calcium Oxalate Crystal Cancelled 11/12/21 01:05 Leucine Crystals Cancelled 11/12/21 01:05 Cystine Crystals Cancelled 11/12/21 01:05 Uric Acid Crystals Cancelled 11/12/21 01:05 Triple Phos Crystals Cancelled 11/12/21 01:05 Tyrosine Crystals Cancelled 11/12/21 01:05 Unidentified Crystals Cancelled 11/12/21 01:05 Amorphous Crystals Cancelled 11/12/21 01:05 Urine Bacteria <20 /HPF (<20) 11/12/21 03:20 Hyaline Casts Cancelled 11/12/21 01:05 Granular Casts Cancelled 11/12/21 01:01 Waxy Casts Cancelled 11/12/21 01:05 RBC Casts Cancelled 11/12/21 01:05 WBC Casts Cancelled 11/12/21 01:05 Urine Mucus Cancelled 11/12/21 01:05 Urine Trichomonas Cancelled 11/12/21 01:05 Ur Yeast w Hyphae Cancelled 11/12/21 01:05 Urine Yeast (Budding) Cancelled 11/12/21 01:05 Urine Sperm Cancelled 11/12/21 01:05 Ur Oval Fat Bodies Cancelled 11/12/21 01:05 Ur Microscopic Review Cancelled 11/12/21 01:05 Urine Total Protein Negative (Negative) 11/12/21 03:20 Urine Ascorbic Acid Cancelled 11/12/21 01:05 Urine Fat Cancelled 11/12/21 01:05 Weight: 279 lb Wound Present: Yes Closed Surgical Incision Present: No Negative Pressure Wound Therapy Present: No Physician Update: Bed mobility SBA, transfers CGA, walked 40 to 50'. Sat is 93 to 94 % with pulse 49 to 56. He was COVID-19 positive on 11/01/21. He now requires oxygen. Summary: Patient's care plan and group home goals have been reviewed and revised as necessary. Please see the Rehabilitation Signature page for all necessary signatures.
[2021-11-12] MEDS: MELATONIN 5 MG TABLET PO PRN (20:33)
[2021-11-12] MEDS: BRIMONIDINE OPTH SCH (20:34)
[2021-11-12] MEDS: DORZOLAMIDE OPTH SCH (20:34)
[2021-11-12] MEDS: TIMOLOL OPTH SCH (20:34)
[2021-11-12] MEDS: LATANOPROST OPTH SCH (20:34)
[2021-11-12] MEDS: BENZONATATE 100 MG CAP PO PRN (20:35)
[2021-11-13] MEDS: ACETAMINOPHEN 500 MG TAB PO PRN (00:18)
[2021-11-13] MEDS: TIMOLOL OPTH SCH ×2 (07:48→19:57)
[2021-11-13] MEDS: BRIMONIDINE OPTH SCH ×2 (07:48→19:57)
[2021-11-13] MEDS: LATANOPROST OPTH SCH ×2 (07:48→19:57)
[2021-11-13] MEDS: DORZOLAMIDE OPTH SCH ×2 (07:48→19:57)
[2021-11-13] MEDS: acetaZOLAMIDE 250 MG TAB PO SCH ×2 (07:49→19:54)
[2021-11-13] MEDS: GUAIFENESIN 600 MG SA TAB PO SCH ×2 (07:49→19:53)
[2021-11-13] MEDS: FUROSEMIDE 20 MG TABLET PO SCH ×2 (07:49→17:08)
[2021-11-13] MEDS: LOSARTAN POTASSIUM 50 MG TABLET PO SCH (07:50)
[2021-11-13] MEDS: APIXABAN 5 MG TABLET PO SCH ×2 (07:50→19:54)
[2021-11-13] MEDS: POTASSIUM CL SA 10 MEQ TAB PO SCH ×2 (07:51→19:54)
[2021-11-13] MEDS: BENZONATATE 100 MG CAP PO PRN (19:57)
[2021-11-13] MEDS: MELATONIN 5 MG TABLET PO PRN (22:28)
[2021-11-14] MEDS: APIXABAN 5 MG TABLET PO SCH ×2 (07:32→20:06)
[2021-11-14] MEDS: LOSARTAN POTASSIUM 50 MG TABLET PO SCH ×3 (08:00→20:07)
[2021-11-14] MEDS: FUROSEMIDE 20 MG TABLET PO SCH ×2 (09:05→15:49)
[2021-11-14] MEDS: POTASSIUM CL SA 10 MEQ TAB PO SCH ×2 (09:05→20:06)
[2021-11-14] MEDS: acetaZOLAMIDE 250 MG TAB PO SCH ×2 (09:05→20:07)
[2021-11-14] MEDS: GUAIFENESIN 600 MG SA TAB PO SCH ×2 (09:06→20:06)
[2021-11-14] MEDS: DORZOLAMIDE OPTH SCH ×2 (09:09→20:08)
[2021-11-14] MEDS: TIMOLOL OPTH SCH ×2 (09:09→20:08)
[2021-11-14] MEDS: BRIMONIDINE OPTH SCH ×2 (09:09→20:08)
[2021-11-14] MEDS: LATANOPROST OPTH SCH ×2 (09:09→20:08)
[2021-11-14] MEDS ORDERED: LOSARTAN POTASSIUM 50 MG TABLET PO SCH ×2 (14:00→14:02)
[2021-11-14] MEDS: MELATONIN 5 MG TABLET PO PRN (21:15)
[2021-11-15] MEDS: APIXABAN 5 MG TABLET PO SCH ×2 (07:39→19:18)
[2021-11-15] MEDS: GUAIFENESIN 600 MG SA TAB PO SCH ×2 (08:13→19:18)
[2021-11-15] MEDS: FUROSEMIDE 20 MG TABLET PO SCH ×2 (08:14→16:35)
[2021-11-15] MEDS: POTASSIUM CL SA 10 MEQ TAB PO SCH ×2 (08:14→19:18)
[2021-11-15] MEDS: acetaZOLAMIDE 250 MG TAB PO SCH ×2 (08:15→19:18)
[2021-11-15] MEDS: TIMOLOL OPTH SCH ×2 (08:16→19:18)
[2021-11-15] MEDS: DORZOLAMIDE OPTH SCH ×2 (08:16→19:18)
[2021-11-15] MEDS: LATANOPROST OPTH SCH ×2 (08:16→19:18)
[2021-11-15] MEDS: BRIMONIDINE OPTH SCH ×2 (08:16→19:18)
[2021-11-15] MEDS ORDERED: LOSARTAN POTASSIUM 50 MG TABLET PO SCH (12:00)
--- NOTE | 2021-11-15 17:22 | R.HP ---
HISTORY AND PHYSICAL FACILITY: [facility] ENCOUNTER DATE AND TIME: 11/12/2021 11:11 (CDT) MR#: [id number] NAME ALICIA LAM ADDRESS: [address] [place] [address] CITY: [place]IP [id number] PHONE: DATE OF : 1940 AGE: 81 SSN# [id number] GENDER: Male DEXTERITY Unknown dexterity MARITAL STATUS Unknown race PRE-HOSPITAL LIVING SETTING 01 - Home (private home/apt. board/care, assisted living, longterm, transitional living) PRE-HOSPITAL LIVING WITH Family/Relatives ENCOUNTER PHYSICIAN: Dr. Jairo Gonsalves M.D. REFERRING DOCTOR: emily Castle DATE OF ADMISSION: 11/11/2021 18:50 (CDT) REFERRING FACILITY [facility] HOME TYPE AND DETAILS: Type of home: single family house # of levels in the residence: 2 # of steps within the residence: unknown # of steps to enter the residence: 0 ONSET DATE: 11/01/2021 PRIMARY DIAGNOSIS-RELATED SURGERIES: none SECONDARY/COMORBID DIAGNOSES (TIERED): - Tier 3 Acute respiratory failure, unspecified whether with hypoxia or hypercapnia (J96.00) - Non-Tiered Generalized edema (R60.1) Atrial fibrillation and flutter (I48) Essential (primary) hypertension (I10) Alkalosis (E87.3) HISTORY OF PRESENT ILLNESS (HPI): Pt. is a 81 yo male of unknown race. On 11/01/2021 he was admitted to [facility] with diagnosis Acute on chronic systolic (ramya estive) heart failure (I50.23). His impairment category is Cardiac 09 - Cardiac Disorders (09). Pre-morbidly, Pt. was independent/mod-I in Locomotion and Self-Care; and he had good Endurance, Trans fers Control, Balance, and Safety Awareness. Currently, he has deficits of Locomotion, Safety Awareness, Balance, Transfers Control, Self-Care, an d Endurance. Pt. is now referred to [facility] for acute in-patient rehabilitation in order to maximize patient's functional independence in activities of daily living, strength, ROM, and mobi lity. Patient has realistic goal of being discharged at assistance level 6-Marylou to reside at Home with Fam jasmin/Relatives. MEDICATION ALLERGIES: No Known Drug Allergies (NKDA) ENVIRONMENTAL ALLERGIES: - Substance Allergies None Known - Other Allergies None Known PAST MEDICAL HISTORY: Acute respiratory failure, unspecified whether with hypoxia or hypercapnia (J96.00) Alkalosis (E87.3) Atrial fibrillation and flutter (I48) Essential (primary) hypertension (I10) Generalized edema (R60.1) GERD PAST SURGICAL HISTORY: Left Shoulder surgery Appendectomy SOCIAL HISTORY: - Home Living Family/Relatives REVIEW OF SYSTEMS: - Gen No Chills Fatigue No Fever - Eyes No Double Vision No itchiness - ENMT No Difficulty Swallowing - CVS No Chest Discomfort No Chest Pain Fatigue No Weight Gain - Resp No Cough No Shortness of Breath - GI Continent No Abdominal Pain No Constipation No Diarrhea - Continent No Kidney Pain No Painful Urination No Urinary Urgency - MSK No Joint Pain Muscle Cramps Stiffness - Skin No Itching No Rash No Suspicious Lesions - Neuro No Coordination Difficulty No Difficulty with Concentration No Memory Loss No Seizures No Weakness - Psych No Anxiety No Depression No HIV Exposure No Persistent Infections No Seasonal Allergies - Endo No Cold/Heat Intolerance No Excessive Hunger No Excessive Thirst No Excessive Urination PHYSICAL EXAM - Gen Alert and awake Lying in bed No apparent distress Oriented to: person, time, and place - Skin No skin breakdown. No abnormalities - Eyes No abnormalities - ENMT No abnormalities - Neck No abnormalities - CVS RRR - Chest No abnormalities - Resp Course lungs bilaterally - Abd Soft - GI Non distended Deferred - No abnormalities - Ext Mild bilateral lower extremity edema. - MSK 4/5 weakness in both lower extremities. - Neuro No focal deficits - Psych No abnormalities VITAL SIGNS Temperature: 97.7 F SBP/DBP: 104/56 Pulse: 55 Resp: 16 Vital signs stable, afebrile 11/11/2021 NURSING: - Shower allowing shower PRECAUTIONS: - Fall Precaution Bed alarm TABS alarm Wheel chair alarm - Cardiac Precaution Assess/Monitor blood pressure, heart rate, lower extremity edema, notify MD for shortness of breath o r chest pain Monitor patient for excessive elevation of heart rate and blood pressure during therapy - DVT Risk due to restricted mobility and age - Skin Breakdown Risk due to restricted mobility and age ACTIVITIES OOB only with supervision QI SCORES: - Self-Care A. Eating 04-Supervision or touching assistance B. Oral hygiene 04-Supervision or touching assistance C. Toileting hygiene 03-Partial/moderate assistance E. Shower/bathe self 03-Partial/moderate assistance F. Upper body dressing 04-Supervision or touching assistance G. Lower body dressing 03-Partial/moderate assistance H. Putting on/taking off footwear 03-Partial/moderate assistance - Mobility A. Roll left and right 04-Supervision or touching assistance B. Sit to lying 04-Supervision or touching assistance C. Lying to sitting on side of bed 04-Supervision or touching assistance D. Sit to stand 03-Partial/moderate assistance E. Chair/svf-sv-ctwpy transfer 03-Partial/moderate assistance F. Toilet transfer 03-Partial/moderate assistance G. Car transfer 88-Not attempted due to medical condition or safety concerns I. Walk 10 feet 04-Supervision or touching assistance J. Walk 50 feet with two turns 04-Supervision or touching assistance K. Walk 150 feet 04-Supervision or touching assistance L. Walking 10 feet on uneven surfaces 88-Not attempted due to medical condition or safety concerns M. 1 step (curb) 88-Not attempted due to medical condition or safety concerns N. 4 steps 88-Not attempted due to medical condition or safety concerns O. 12 steps 88-Not attempted due to medical condition or safety concerns P. Picking up object 88-Not attempted due to medical condition or safety concerns R. Wheel 50 feet with two turns 09-Not applicable S. Wheel 150 feet 09-Not applicable - Bladder and Bowel Bladder continence 2-Incontinent less than daily Bowel continence 1-Occasionally incontinent - Endurance Fair - Balance Fair - Safety Awareness Fair CURRENT FUNC. DEFICITS: Self-Care, Mobility, Endurance, Balance, and Safety Awareness MEDICATIONS: - Other See attached MAR (Medication Administration Record) ASSESSMENT: Pt. is a 81 yo male of unknown race.On 11/01/2021 he was admitted to [facility] with diagn osis Acute on chronic systolic (congestive) heart failure (I50.23).His impairment category is Cardiac 09 - Cardiac Disorders ().Pre-morbidly, Pt. was independent/mod-I in Locomotion and Self-Care; an d he had good Endurance, Transfers Control, Balance, and Safety Awareness.Currently, he has deficits of Locomotion, Safety Awareness, Balance, Transfers Control, Self-Care, and Endurance.Pt. is now refe rred to [facility] for acute in-patient rehabilitation in order to maximize jemima cassidy's functional independence in activities of daily living, strength, ROM, and mobility.- Rehab Go al Patient has realistic goal of being discharged at assistance level 6-Marylou to reside at Home with Fam jasmin/Relatives. - Physical Therapy Gait dysfunction - to improve, our physical therapists will perform initial evaluation of pt's status upon admission and devise an individualized program for Gait Training, and Wheel Chair mobility Inability to transfer - to improve, our physical therapists will perform initial evaluation of pt's s tatus upon admission and devise an individualized program for Bed mobility Need for home safety evaluation - to improve, our physical therapists will perform initial evaluation of pt's status upon admission and devise an individualized program for Home Evaluation Need in caregiver upon discharge - to improve, our physical therapists will perform initial evaluatio n of pt's status upon admission and devise an individualized program for Caregiver Training New precaution - to improve, our physical therapists will perform initial evaluation of pt's status u joan admission and devise an individualized program for Patient precaution education Edema - to improve, our physical therapists will perform initial evaluation of pt's status upon admi ssion and devise an individualized program for Elevation Training, and Lymphedema Therapy Poor balance - to improve, our physical therapists will perform initial evaluation of pt's status upo n admission and devise an individualized program for Balance Training Poor endurance - to improve, our physical therapists will perform initial evaluation of pt's status u joan admission and devise an individualized program for Endurance Training Weakness - to improve, our physical therapists will perform initial evaluation of pt's status upon ad mission and devise an individualized program for Aquatic Therapy, Neuromuscular Reeducation, and Stre ngthening Achieving independence - to improve, our physical therapists will perform initial evaluation of pt's status upon admission and devise an individualized program for Community Reintegration Activities - Occupational Therapy ADL deficits - to improve, our occupation therapists will perform initial evaluation of pt's status u joan admission and devise an individualized program for Bathing, Bed mobility, Community Reintegration , Cooking, Dressing, Eating, Fine Motor Skills, Grooming, Homemaking, Kitchen Mobility, Laundry, Tami ent Education, Safety Awareness, Splinting - Positioning, Transfers(Toilet, Tub, Shower), and Wheel C hair Management Need for child care lead teacher - to improve, our occupation therapists will perform initial evaluation of pt's s tatus upon admission and devise an individualized program for Caregiver Training Weakness - to improve, our occupation therapists will perform initial evaluation of pt's status upon admission and devise an individualized program for Aquatic Therapy, Balance, Endurance, UE ROM, and U E strengthening MEDICAL PLAN: - Diet Type Start Regular - Diet - Liquid Texture Start Regular - Tube Feed Start N/A - DVT Risk due to restricted mobility and age - Skin Breakdown Risk due to restricted mobility and age - Cardiac Precaution Assess/Monitor blood pressure, heart rate, lower extremity edema, notify MD for shortness of breath or chest pain Monitor patient for excessive elevation of heart rate and blood pressure during therapy - Fall Precaution Bed alarm TABS alarm Wheel chair alarm - Other See attached MAR (Medication Administration Record) - Diet - Solid Texture Regular - Shower shower DISCHARGE PLAN: - Estimated Length of Stay (days) 10. - Consensus on plan Discharge plan has been discussed with primary caregiver. Patient/Family is in agreement with the galindo n. Primary caregiver is in agreement with the plan. - Patient/Family Goals Return home independently. - Planned Living Setting Upon Discharge Home, to live with Family/Relatives. Transitional Living. SIGNATURE PANEL: (CDT)
--- NOTE | 2021-11-15 17:33 | PAPE ---
POST ADMISSION PHYSICIAN EVALUATION PATIENT: [facility] MR# [id number] REFERRING DOCTOR emily Castle EVALUATION DATE AND TIME 11/12/2021 12:24 (CDT) NAME ALICIA LAM DATE OF 1940 AGE 81 PHONE SSN# [id number] GENDER male EVALUATING PHYSICIAN Dr. Jairo Gonsalves M.D. ADMISSION DIAGNOSIS: Acute on chronic systolic (congestive) heart failure (I50.23) ONSET DATE 11/01/2021 SECONDARY/COMORBID DIAGNOSES TIERED: - Tier 3 Acute respiratory failure, unspecified whether with hypoxia or hypercapnia (J96.00) - Non-Tiered Generalized edema (R60.1) Atrial fibrillation and flutter (I48) Essential (primary) hypertension (I10) Alkalosis (E87.3) POST-ADMISSION FUNCTIONAL/MEDICAL STATUS: - Bladder Same accident frequency: 7-Ind - No accidents in the past 7 days - Bowel Same accident frequency: 7-Ind - No accidents in the past 7 days - Walking Same score based on distance walked: 0(N/A) Same score based on distance walked: 3(>=150ft) - Wheelchair Same score based on distance traveled: 0(N/A) STATUS CHANGE EVALUATION: No change in Functional or Medical Status is identified compared with Pre-Admission screening. PATIENT NEEDS CLOSE MEDICAL SUPERVISION BY A REHABILITATION PHYSICIAN FOR: Coordination of Treatment Team Medical and Co-Morbidity Management Respiratory/Airway Management Bowel and Bladder Management PATIENT REQUIRES 24X7 REHAB NURSING FOR MEDICAL AND FUNCTIONAL MGT. OF THE FOLLOWING DEFICITS: Patient requires 24x7 Rehabilitation Nursing for: Pain Issues, Identifying and preventing risk factor s, Monitoring and reporting current medical conditions, Assisting with ambulation and transfer, Jamal ting with all ADL-s, Teaching patients about disease process and medications, Family teaching, Provid ing safe environment, Bowel and Bladder Issues, Skin Integrity, and Medication Management PATIENT REQUIRES INTENSIVE, COORDINATED INTERDISCIPLINARY APPROACH TO REHAB: Patient needs Dietary and Nutrition Services for: Adequate Nutrition, Nutritional Supplements, and Nu tritional Education Patient needs Through Freight Engineer and/or Case Management for: Discharge Planning, Arranging Home Equipmen t or Services, and Family Interventions LIST OF IDENTIFIED AND POTENTIAL PROBLEMS: Alteration in air exchange Alteration in leisure activities Bladder, Incontinence Blood Pressure, Hypertension/hypotension Issues Bowel, Incontinence Falls, Actual or Potential Infection, Actual or Potential Mobility Impaired Pain, Alteration in Comfort Self Care Deficit Skin Integrity, Actual or Potential Urinary Tract Infection (UTI), Actual or Potential RISK FOR COMPLICATIONS - DVT Active and Passive ROM exercises. Administer medications per MD order. Assist patient with frequent p osition changes. Elevate BLE. - Skin Breakdown Encourage ambulation as tolerated. Repositioning q 2 hours. Use of pillows or foam wedges while in be d. - Falls Assess for medication side effects. Maintain call light within patient reach for easy access to nursi ng assistance. Provide assistance getting out of bed and with ambulation. Provide assistive devices. - Pain Assist patient with frequent position changes at least every 2 hours. Assess pt for pain and Administ er prescribed pain medication as needed. Anticipate the need for pain medication for optimal pain man agment. - Seizure Identify risk factors. Provide safety measures. Monitor for headaches. - Respiratory Failure Administer supplemental O2 as needed. Assess/ Monitor pt O2 sats. - Cardiac Failure Assess/Monitor pt cardiac status. - Fluid Overload Administer prescribed diuretics. Monitor pt fluid intake. Assess/ Monitor pt for s/s of fluid over lo ad. - Stroke Assess/ Monitor and maintain patient pain level. Assess/ Monitor patient blood pressure. - CHF Assess/ Monitor pt for s/s cardiac/respiratory distress. INTERVENTIONS - Acute respiratory failure with hypoxemia and hypercapnia Maintain optimal positioning for respiratory support. Maintain patent airway. Obtain and evaluate lab s. Provide supplemental O2. Regular respiratory assesment. Reposition pt frequently to maximize lung expansion. - Acute on chronic systolic heart failure Administer medications as indicated by MD and monitor for effectiveness. Assess/Monitor pt cardiac st atus. IV diuresis. - Afib Administer prescribed anticoagulants and monitor effectiveness. Assess/Monitor pt cardiac and respira tory status regularly. Monitor pt labs. Vitals will be monitored regularly and IV medications adminis tered as indicated by Physician. - Anasarca - Hypertension Administer medications indicated by physician and monitor for effectiveness. Implement healthy diet. Increase physical activity. Assess/ Monitor patient B/P regularly. - Metabolic alkalosis Assess/ Monitor for s/s of seizures. Monitor vital signs frequently. Assess for signs of muscle weakn ess, tetany or decreased activity. recordintake and outputto evaluate respiratory, fluid and elec trolyte status. PATIENT COULD BE AT RISK FOR COMPLICATIONS FROM ADVERSE MEDICAL CONDITIONS DUE TO HIS/HER COMORBIDITI ES AND THE RIGORS OF THE INTENSIVE REHABILLITATION PROGRAM. METHODS OR INTERVENTIONS TO AVOID COMPLIC ATIONS INCLUDE: - Infection Clinical staff to assess and manage the signs and symptoms of infection including fever, redness, war mth, etc. - Urinary Tract Infection - Falls Patient will be evaluated for Fall Precautions and will be placed on Fall Precautions as indicated pe r protocol. - Skin Breakdown Nursing will assess skin daily using assessment tool and will place on Skin Breakdown Precautions as indicated per protocol. - Pain Clinical staff may employ non-medication methods such as massage, distraction, decrease stimulus, etc . as needed. Clinical staff will assess patient's pain level every shift per protocol to assess and e nsure pain management effectiveness. Medications will be given and the pain level re-assessed. PRELIMINARY PLAN OF CARE: - Physical Therapy Patient needs Physical Therapy for a daily minimum of 1.5 hours at least 5 out of 7 days, to improve: Mobility, Strengthening, Transfers, Stretching, ROM, Endurance, Ability to manage stairs, Gait, and Balance. - Speech Therapy Patient needs Speech Therapy for a daily minimum of 0.5 hours at least 5 out of 7 days, to improve: S wallowing, Cognition, Language Skills, and Compensatory Strategies. - Rehabilitation Nursing Patient requires 24x7 Rehabilitation Nursing for: Pain Issues, Identifying and preventing risk factor s, Monitoring and reporting current medical conditions, Assisting with ambulation and transfer, Jamal ting with all ADL-s, Teaching patients about disease process and medications, Family teaching, Provid ing safe environment, Bowel and Bladder Issues, Skin Integrity, and Medication Management. Patient needs Through Freight Engineer and/or Case Management for: Discharge Planning, Arranging Home Equipmen t or Services, and Family Interventions. - Dietary and Nutrition Services Patient needs Dietary and Nutrition Services for: Adequate Nutrition, Nutritional Supplements, and Nu tritional Education. - Occupational Therapy Patient needs Occupational Therapy for a daily minimum of 1.5 hours at least 5 out of 7 days, to impr ove Activities of Daily Living, including: Eating, Grooming, Bathing, Dressing, Toileting, Toilet Tra nsfers, Community Reintegration, Higher functional activities, Adaptive Equipment, Splinting, Househo ld Tasks, and Other activities as determined. QI SCORES: - Self-Care A. Eating 04-Supervision or touching assistance B. Oral hygiene 04-Supervision or touching assistance C. Toileting hygiene 03-Partial/moderate assistance E. Shower/bathe self 03-Partial/moderate assistance F. Upper body dressing 04-Supervision or touching assistance G. Lower body dressing 03-Partial/moderate assistance H. Putting on/taking off footwear 03-Partial/moderate assistance - Mobility A. Roll left and right 04-Supervision or touching assistance B. Sit to lying 04-Supervision or touching assistance C. Lying to sitting on side of bed 04-Supervision or touching assistance D. Sit to stand 03-Partial/moderate assistance E. Chair/qxf-hm-lbeud transfer 03-Partial/moderate assistance F. Toilet transfer 03-Partial/moderate assistance G. Car transfer 88-Not attempted due to medical condition or safety concerns I. Walk 10 feet 04-Supervision or touching assistance J. Walk 50 feet with two turns 04-Supervision or touching assistance K. Walk 150 feet 04-Supervision or touching assistance L. Walking 10 feet on uneven surfaces 88-Not attempted due to medical condition or safety concerns M. 1 step (curb) 88-Not attempted due to medical condition or safety concerns N. 4 steps 88-Not attempted due to medical condition or safety concerns O. 12 steps 88-Not attempted due to medical condition or safety concerns P. Picking up object 88-Not attempted due to medical condition or safety concerns R. Wheel 50 feet with two turns 09-Not applicable S. Wheel 150 feet 09-Not applicable - Bladder and Bowel Bladder continence 2-Incontinent less than daily Bowel continence 1-Occasionally incontinent - Endurance Fair - Balance Fair - Safety Awareness Fair POTENTIAL FUNCTIONAL GOALS FOR PATIENT TO ACHIEVE BY DISCHARGE: - Safety Precaution Patient will remain free from falls or injury at time of discharge. - Bed Mobility Patient will perform bed mobility at 4-Hugo level of assistance. - Transfers Patient will complete transfers from bed to chair at 4-Hugo level of assistance. - Mobility Patient will ambulate 150 ft with 4-Hugo level of assistance with RW. PATIENT REHAB POTENTIAL Esa LAM is able and expected to receive 3 hours of individualized therapy daily on at least 5 of agapito ry 7 days Esa GOMEZAmie's prognosis for significant practical improvement within a reasonable period of time appears Good Expected level of measurable improvement will be of a practical value to Esa LAM's functional capaci ty or adaptations to impairments Has a viable Discharge Plan Medically appropriate; condition is sufficiently stable to participate in intensive rehab program DISCHARGE PLAN: - Estimated Length of Stay (days) 10. - Consensus on plan Discharge plan has been discussed with primary caregiver. Patient/Family is in agreement with the galindo n. Primary caregiver is in agreement with the plan. - Patient/Family Goals Return home independently. - Planned Living Setting Upon Discharge Home, to live with Family/Relatives. Transitional Living. CONCLUSION ON REHABILITATION NECESSITY: I have evaluated patient's pre-admission functional status and, comparing it to the patient's post-ad mission functional status now, I conclude that the pre-admission assessment was accurate. Patient's c ondition on admission supports the medical necessity of admission to [facility]. It is safe to proceed with patient's therapy program. SIGNATURE PANEL: (CDT)
--- NOTE | 2021-11-15 17:33 | R.PN ---
PROGRESS NOTES ENCOUNTER DATE AND TIME: 11/15/2021 12:25 (CDT) NAME ALICIA LAM DATE OF : 1940 DATE OF ADMISSION: 11/11/2021 18:50 (CDT) Acute on chronic systolic (congestive) heart failure (I50.23)CHIEF COMPLAINT: Acute on chronic systolic CHF SUBJECTIVE: Pt denied any Shortness of Breath. Pt denied any depression. VITAL SIGNS Temperature: 97.4 F SBP/DBP: 121/56 Pulse: 55 Resp: 16 WBC 4.1, Hgb 12.9, prealbumin 11.6, UA is essentially normal. Ambulated 750' with rolling walker and contact guard assistance. Self-propelled wheelchair 250' with standby assistance. MEDICATION ALLERGIES: No Known Drug Allergies (NKDA) ENVIRONMENTAL ALLERGIES: - Substance Allergies None Known - Other Allergies None Known NURSING: - Shower allowing shower PRECAUTIONS: - Fall Precaution Bed alarm TABS alarm Wheel chair alarm - Cardiac Precaution Assess/Monitor blood pressure, heart rate, lower extremity edema, notify MD for shortness of breath o r chest pain Monitor patient for excessive elevation of heart rate and blood pressure during therapy - DVT Risk due to restricted mobility and age - Skin Breakdown Risk due to restricted mobility and age ACTIVITIES OOB only with supervision THERAPIES: - Dietary and Nutrition Adequate Nutrition. Nutritional Education. Nutritional Supplements. - Occupational Therapy Cognitive Retraining. Patient needs Occupational Therapy for a daily minimum of 1.5 hours at least 5 out of 7 days, to improve Activities of Daily Living, including: Eating, Grooming, Bathing, Dressing, Toileting, Toilet Transfers, Community Reintegration, Higher functional activities, Adaptive Equipme nt, Splinting, Household Tasks, and Other activities as determined. Visual Perceptual Training. - Physical Therapy Patient needs Physical Therapy for a daily minimum of 1.5 hours at least 5 out of 7 days, to improve: Mobility, Strengthening, Transfers, Stretching, ROM, Endurance, Ability to manage stairs, Gait, and Balance. PHYSICAL EXAM - Gen Alert and awake Lying in bed No apparent distress Oriented to: person, time, and place - Skin No skin breakdown. No abnormalities - Eyes No abnormalities - ENMT No abnormalities - Neck No abnormalities - CVS RRR - Chest No abnormalities - Resp Course lungs bilaterally - Abd Soft - GI Non distended Deferred - No abnormalities - Ext Mild bilateral lower extremity edema. - MSK 4/5 weakness in both lower extremities. - Neuro No focal deficits - Psych No abnormalities ASSESSMENT: Pt. is a 81 yo male of unknown race.On 11/01/2021 he was admitted to [facility] with diagn osis Acute on chronic systolic (congestive) heart failure (I50.23).His impairment category is Cardiac 09 - Cardiac Disorders (09).Pre-morbidly, Pt. was independent/mod-I in Locomotion and Self-Care; an d he had good Endurance, Transfers Control, Balance, and Safety Awareness.Currently, he has deficits of Locomotion, Safety Awareness, Balance, Transfers Control, Self-Care, and Endurance.Pt. is now refe rred to [facility] for acute in-patient rehabilitation in order to maximize jemima cassidy's functional independence in activities of daily living, strength, ROM, and mobility.- Rehab Go al Patient has realistic goal of being discharged at assistance level 6-Marylou to reside at Home with Fam jasmin/Relatives. MDM/PLAN: - Physical Therapy Gait dysfunction - to improve, our physical therapists will perform initial evaluation of pt's statu s upon admission and devise an individualized program for Gait Training, and Wheel Chair mobility Inability to transfer - to improve, our physical therapists will perform initial evaluation of pt's status upon admission and devise an individualized program for Bed mobility Need for home safety evaluation - to improve, our physical therapists will perform initial evaluatio n of pt's status upon admission and devise an individualized program for Home Evaluation Need in caregiver upon discharge - to improve, our physical therapists will perform initial evaluati on of pt's status upon admission and devise an individualized program for Caregiver Training New precaution - to improve, our physical therapists will perform initial evaluation of pt's status upon admission and devise an individualized program for Patient precaution education Edema - to improve, our physical therapists will perform initial evaluation of pt's status upon admis olinda and devise an individualized program for Elevation Training, and Lymphedema Therapy Poor balance - to improve, our physical therapists will perform initial evaluation of pt's status up on admission and devise an individualized program for Balance Training Poor endurance - to improve, our physical therapists will perform initial evaluation of pt's status upon admission and devise an individualized program for Endurance Training Weakness - to improve, our physical therapists will perform initial evaluation of pt's status upon a dmission and devise an individualized program for Aquatic Therapy, Neuromuscular Reeducation, and Str engthening Achieving independence - to improve, our physical therapists will perform initial evaluation of pt's status upon admission and devise an individualized program for Community Reintegration Activities - Occupational Therapy ADL deficits - to improve, our occupation therapists will perform initial evaluation of pt's status upon admission and devise an individualized program for Bathing, Bed mobility, Community Reintegratio n, Cooking, Dressing, Eating, Fine Motor Skills, Grooming, Homemaking, Kitchen Mobility, Laundry, Pat ient Education, Safety Awareness, Splinting - Positioning, Transfers(Toilet, Tub, Shower), and Wheel Chair Management Need for customer care consultant - to improve, our occupation therapists will perform initial evaluation of pt's status upon admission and devise an individualized program for Caregiver Training Weakness - to improve, our occupation therapists will perform initial evaluation of pt's status upon admission and devise an individualized program for Aquatic Therapy, Balance, Endurance, UE ROM, and UE strengthening - Other See attached MAR (Medication Administration Record) - Diet Type Continue Regular - Diet - Liquid Texture Continue Regular - Tube Feed Continue N/A - DVT Risk due to restricted mobility and age - Skin Breakdown Risk due to restricted mobility and age - Cardiac Precaution Assess/Monitor blood pressure, heart rate, lower extremity edema, notify MD for shortness of breath o r chest pain Monitor patient for excessive elevation of heart rate and blood pressure during therapy - Fall Precaution Bed alarm TABS alarm Wheel chair alarm - Diet - Solid Texture Continue Regular - Shower allowing shower FUNCTIONAL STATUS: UPDATED AT WEEKLY TEAM CONFERENCE - Bladder Same accident frequency: 7-Ind - No accidents in the past 7 days - Bowel Same accident frequency: 7-Ind - No accidents in the past 7 days - Walking Same score based on distance walked: 0(N/A) Same score based on distance walked: 3(>=150ft) - Wheelchair Same score based on distance traveled: 0(N/A) FUNCTIONAL STATUS: - Self-Care A. Eating Ind B. Grooming Ind C. Bathing Hugo D. Dressing - Upper sup E. Dressing - Lower Hugo F. Toileting Hugo - Sphincter Control G. Bladder control Marylou H. Bowel control Marylou - Transfers Control I. Bed/Chair/Wheelchair sup J. Toilet sup K. Tub/Shower Hugo - Locomotion L. Walk/Wheelchair (B) Hugo M. Stairs Hugo - Communication N. Comprehension (B) Marylou O. Expression (B) Marylou - Social Cognition P. Social Interaction Ind Q. Problem Solving Marylou R. Memory Marylou - Endurance Good - Balance Good - Safety Awareness Good QI SCORES: - Self-Care A. Eating 04-Supervision or touching assistance B. Oral hygiene 04-Supervision or touching assistance C. Toileting hygiene 03-Partial/moderate assistance E. Shower/bathe self 03-Partial/moderate assistance F. Upper body dressing 04-Supervision or touching assistance G. Lower body dressing 03-Partial/moderate assistance H. Putting on/taking off footwear 03-Partial/moderate assistance - Mobility A. Roll left and right 04-Supervision or touching assistance B. Sit to lying 04-Supervision or touching assistance C. Lying to sitting on side of bed 04-Supervision or touching assistance D. Sit to stand 03-Partial/moderate assistance E. Chair/[id number] transfer 03-Partial/moderate assistance F. Toilet transfer 03-Partial/moderate assistance G. Car transfer 88-Not attempted due to medical condition or safety concerns I. Walk 10 feet 04-Supervision or touching assistance J. Walk 50 feet with two turns 04-Supervision or touching assistance K. Walk 150 feet 04-Supervision or touching assistance L. Walking 10 feet on uneven surfaces 88-Not attempted due to medical condition or safety concerns M. 1 step (curb) 88-Not attempted due to medical condition or safety concerns N. 4 steps 88-Not attempted due to medical condition or safety concerns O. 12 steps 88-Not attempted due to medical condition or safety concerns P. Picking up object 88-Not attempted due to medical condition or safety concerns R. Wheel 50 feet with two turns 09-Not applicable S. Wheel 150 feet 09-Not applicable - Bladder and Bowel Bladder continence 2-Incontinent less than daily Bowel continence 1-Occasionally incontinent - Endurance Fair - Balance Fair - Safety Awareness Fair CURRENT FUNC. DEFICITS: Self-Care, Mobility, Endurance, Balance, and Safety Awareness SIGNATURE PANEL: (CDT)
[2021-11-15] MEDS: LOSARTAN POTASSIUM 50 MG TABLET PO SCH (19:19)
[2021-11-15] MEDS: MELATONIN 5 MG TABLET PO PRN (21:17)
[2021-11-16] MEDS: acetaZOLAMIDE 250 MG TAB PO SCH ×2 (08:31→20:16)
[2021-11-16] MEDS: POTASSIUM CL SA 10 MEQ TAB PO SCH ×2 (08:31→20:15)
[2021-11-16] MEDS: APIXABAN 5 MG TABLET PO SCH ×2 (08:31→20:16)
[2021-11-16] MEDS: FUROSEMIDE 20 MG TABLET PO SCH ×2 (08:32→16:50)
[2021-11-16] MEDS: GUAIFENESIN 600 MG SA TAB PO SCH ×2 (08:32→20:15)
[2021-11-16] MEDS: DORZOLAMIDE OPTH SCH ×2 (10:12→20:17)
[2021-11-16] MEDS: TIMOLOL OPTH SCH ×2 (10:12→20:17)
[2021-11-16] MEDS: BRIMONIDINE OPTH SCH ×2 (10:12→20:17)
[2021-11-16] MEDS: LATANOPROST OPTH SCH ×2 (10:12→20:17)
--- NOTE | 2021-11-16 17:13 | R.PN ---
PROGRESS NOTES ENCOUNTER DATE AND TIME: 11/16/2021 17:08 (CDT) NAME ALICIA LAM DATE OF : 1940 DATE OF ADMISSION: 11/11/2021 18:50 (CDT) Acute on chronic systolic (congestive) heart failure (I50.23)CHIEF COMPLAINT: Acute on chronic systolic CHF SUBJECTIVE: Pt denied any Shortness of Breath. Pt denied any depression. Ambulated 750' with rolling walker and contact guard assistance. Self-propelled wheelchair 250' with standby assistance. O2 sat 95% on room air. WBC 4.1, Hgb 12.9, prealbumin 11.6, UA is essentially normal. VITAL SIGNS Temperature: 97.4 F SBP/DBP: 110/68 Pulse: 78 Resp: 16 MEDICATION ALLERGIES: No Known Drug Allergies (NKDA) ENVIRONMENTAL ALLERGIES: - Substance Allergies None Known - Other Allergies None Known NURSING: - Shower allowing shower PRECAUTIONS: - Fall Precaution Bed alarm TABS alarm Wheel chair alarm - Cardiac Precaution Assess/Monitor blood pressure, heart rate, lower extremity edema, notify MD for shortness of breath o r chest pain Monitor patient for excessive elevation of heart rate and blood pressure during therapy - DVT Risk due to restricted mobility and age - Skin Breakdown Risk due to restricted mobility and age ACTIVITIES OOB only with supervision THERAPIES: - Dietary and Nutrition Adequate Nutrition. Nutritional Education. Nutritional Supplements. - Occupational Therapy Cognitive Retraining. Patient needs Occupational Therapy for a daily minimum of 1.5 hours at least 5 out of 7 days, to improve Activities of Daily Living, including: Eating, Grooming, Bathing, Dressing, Toileting, Toilet Transfers, Community Reintegration, Higher functional activities, Adaptive Equipme nt, Splinting, Household Tasks, and Other activities as determined. Visual Perceptual Training. - Physical Therapy Patient needs Physical Therapy for a daily minimum of 1.5 hours at least 5 out of 7 days, to improve: Mobility, Strengthening, Transfers, Stretching, ROM, Endurance, Ability to manage stairs, Gait, and Balance. PHYSICAL EXAM - Gen Alert and awake Lying in bed No apparent distress Oriented to: person, time, and place - Skin No skin breakdown. No abnormalities - Eyes No abnormalities - ENMT No abnormalities - Neck No abnormalities - CVS RRR - Chest No abnormalities - Resp Course lungs bilaterally - Abd Soft - GI Non distended Deferred - No abnormalities - Ext Mild bilateral lower extremity edema. - MSK 4/5 weakness in both lower extremities. - Neuro No focal deficits - Psych No abnormalities ASSESSMENT: Pt. is a 81 yo male of unknown race.On 11/01/2021 he was admitted to [facility] with diagn osis Acute on chronic systolic (congestive) heart failure (I50.23).His impairment category is Cardiac 09 - Cardiac Disorders (09).Pre-morbidly, Pt. was independent/mod-I in Locomotion and Self-Care; an d he had good Endurance, Transfers Control, Balance, and Safety Awareness.Currently, he has deficits of Locomotion, Safety Awareness, Balance, Transfers Control, Self-Care, and Endurance.Pt. is now refe rred to [facility] for acute in-patient rehabilitation in order to maximize jemima cassidy's functional independence in activities of daily living, strength, ROM, and mobility.- Rehab Go al Patient has realistic goal of being discharged at assistance level 6-Marylou to reside at Home with Fam jasmin/Relatives. MDM/PLAN: - Physical Therapy Gait dysfunction - to improve, our physical therapists will perform initial evaluation of pt's statu s upon admission and devise an individualized program for Gait Training, and Wheel Chair mobility Inability to transfer - to improve, our physical therapists will perform initial evaluation of pt's status upon admission and devise an individualized program for Bed mobility Need for home safety evaluation - to improve, our physical therapists will perform initial evaluatio n of pt's status upon admission and devise an individualized program for Home Evaluation Need in caregiver upon discharge - to improve, our physical therapists will perform initial evaluati on of pt's status upon admission and devise an individualized program for Caregiver Training New precaution - to improve, our physical therapists will perform initial evaluation of pt's status upon admission and devise an individualized program for Patient precaution education Edema - to improve, our physical therapists will perform initial evaluation of pt's status upon admi ssion and devise an individualized program for Elevation Training, and Lymphedema Therapy Poor balance - to improve, our physical therapists will perform initial evaluation of pt's status up on admission and devise an individualized program for Balance Training Poor endurance - to improve, our physical therapists will perform initial evaluation of pt's status upon admission and devise an individualized program for Endurance Training Weakness - to improve, our physical therapists will perform initial evaluation of pt's status upon a dmission and devise an individualized program for Aquatic Therapy, Neuromuscular Reeducation, and Str engthening Achieving independence - to improve, our physical therapists will perform initial evaluation of pt's status upon admission and devise an individualized program for Community Reintegration Activities - Occupational Therapy ADL deficits - to improve, our occupation therapists will perform initial evaluation of pt's status upon admission and devise an individualized program for Bathing, Bed mobility, Community Reintegratio n, Cooking, Dressing, Eating, Fine Motor Skills, Grooming, Homemaking, Kitchen Mobility, Laundry, Pat ient Education, Safety Awareness, Splinting - Positioning, Transfers(Toilet, Tub, Shower), and Wheel Chair Management Need for occasional caregiver - to improve, our occupation therapists will perform initial evaluation of pt's status upon admission and devise an individualized program for Caregiver Training Weakness - to improve, our occupation therapists will perform initial evaluation of pt's status upon admission and devise an individualized program for Aquatic Therapy, Balance, Endurance, UE ROM, and UE strengthening - Other See attached MAR (Medication Administration Record) - Diet Type Continue Regular - Diet - Liquid Texture Continue Regular - Tube Feed Continue N/A - DVT Risk due to restricted mobility and age - Skin Breakdown Risk due to restricted mobility and age - Cardiac Precaution Assess/Monitor blood pressure, heart rate, lower extremity edema, notify MD for shortness of breath or chest pain Monitor patient for excessive elevation of heart rate and blood pressure during therapy - Fall Precaution Bed alarm TABS alarm Wheel chair alarm - Diet - Solid Texture Continue Regular - Shower allowing shower FUNCTIONAL STATUS: UPDATED AT WEEKLY TEAM CONFERENCE - Bladder Same accident frequency: 7-Ind - No accidents in the past 7 days - Bowel Same accident frequency: 7-Ind - No accidents in the past 7 days - Walking Same score based on distance walked: 0(N/A) Same score based on distance walked: 3(>=150ft) - Wheelchair Same score based on distance traveled: 0(N/A) FUNCTIONAL STATUS: - Self-Care A. Eating Ind B. Grooming Ind C. Bathing Hugo D. Dressing - Upper sup E. Dressing - Lower Hugo F. Toileting Hugo - Sphincter Control G. Bladder control Marylou H. Bowel control Marylou - Transfers Control I. Bed/Chair/Wheelchair sup J. Toilet sup K. Tub/Shower Hugo - Locomotion L. Walk/Wheelchair (B) Hugo M. Stairs Hugo - Communication N. Comprehension (B) Marylou O. Expression (B) Marylou - Social Cognition P. Social Interaction Ind Q. Problem Solving Marylou R. Memory Marylou - Endurance Good - Balance Good - Safety Awareness Good QI SCORES: - Self-Care A. Eating 04-Supervision or touching assistance B. Oral hygiene 04-Supervision or touching assistance C. Toileting hygiene 03-Partial/moderate assistance E. Shower/bathe self 03-Partial/moderate assistance F. Upper body dressing 04-Supervision or touching assistance G. Lower body dressing 03-Partial/moderate assistance H. Putting on/taking off footwear 03-Partial/moderate assistance - Mobility A. Roll left and right 04-Supervision or touching assistance B. Sit to lying 04-Supervision or touching assistance C. Lying to sitting on side of bed 04-Supervision or touching assistance D. Sit to stand 03-Partial/moderate assistance E. Chair/quh-[id number] transfer 03-Partial/moderate assistance F. Toilet transfer 03-Partial/moderate assistance G. Car transfer 88-Not attempted due to medical condition or safety concerns I. Walk 10 feet 04-Supervision or touching assistance J. Walk 50 feet with two turns 04-Supervision or touching assistance K. Walk 150 feet 04-Supervision or touching assistance L. Walking 10 feet on uneven surfaces 88-Not attempted due to medical condition or safety concerns M. 1 step (curb) 88-Not attempted due to medical condition or safety concerns N. 4 steps 88-Not attempted due to medical condition or safety concerns O. 12 steps 88-Not attempted due to medical condition or safety concerns P. Picking up object 88-Not attempted due to medical condition or safety concerns R. Wheel 50 feet with two turns 09-Not applicable S. Wheel 150 feet 09-Not applicable - Bladder and Bowel Bladder continence 2-Incontinent less than daily Bowel continence 1-Occasionally incontinent - Endurance Fair - Balance Fair - Safety Awareness Fair CURRENT FUNC. DEFICITS: Self-Care, Mobility, Endurance, Balance, and Safety Awareness SIGNATURE PANEL: (CDT)
[2021-11-16] MEDS: LOSARTAN POTASSIUM 50 MG TABLET PO SCH (20:16)
[2021-11-16] MEDS: MELATONIN 5 MG TABLET PO PRN (20:16)
[2021-11-16] MEDS: ACETAMINOPHEN 500 MG TAB PO PRN (20:16)
[2021-11-17] MEDS: POTASSIUM CL SA 10 MEQ TAB PO SCH ×2 (07:56→20:19)
[2021-11-17] MEDS: FUROSEMIDE 20 MG TABLET PO SCH (07:57)
[2021-11-17] MEDS: APIXABAN 5 MG TABLET PO SCH ×2 (07:58→20:19)
[2021-11-17] MEDS: GUAIFENESIN 600 MG SA TAB PO SCH ×2 (07:58→20:19)
[2021-11-17] MEDS: acetaZOLAMIDE 250 MG TAB PO SCH ×2 (07:58→20:19)
[2021-11-17] MEDS: LATANOPROST OPTH SCH ×2 (08:32→20:00)
[2021-11-17] MEDS: DORZOLAMIDE OPTH SCH ×2 (08:32→20:00)
[2021-11-17] MEDS: BRIMONIDINE OPTH SCH ×2 (08:32→20:00)
[2021-11-17] MEDS: TIMOLOL OPTH SCH ×2 (08:32→20:00)
[2021-11-17] MEDS: FUROSEMIDE 40 MG TABLET PO SCH (17:13)
--- NOTE | 2021-11-17 18:54 | R.PN ---
PROGRESS NOTES ENCOUNTER DATE AND TIME: 11/17/2021 18:50 (CDT) NAME ALICIA LAM DATE OF : 1940 DATE OF ADMISSION: 11/11/2021 18:50 (CDT) Acute on chronic systolic (congestive) heart failure (I50.23)CHIEF COMPLAINT: Acute on chronic systolic CHF SUBJECTIVE: Pt denied any Shortness of Breath. Pt denied any depression. Ambulated 500' with rolling walker and modified independence. Self-propelled wheelchair 250' with mod ified independence. O2 sat 95% on room air. WBC 4.1, Hgb 12.9, prealbumin 11.6, UA is essentially normal. VITAL SIGNS Temperature: 97.6 F SBP/DBP: 109/58 Pulse: 56 Resp: 16 MEDICATION ALLERGIES: No Known Drug Allergies (NKDA) ENVIRONMENTAL ALLERGIES: - Substance Allergies None Known - Other Allergies None Known NURSING: - Shower allowing shower PRECAUTIONS: - Fall Precaution Bed alarm TABS alarm Wheel chair alarm - Cardiac Precaution Assess/Monitor blood pressure, heart rate, lower extremity edema, notify MD for shortness of breath o r chest pain Monitor patient for excessive elevation of heart rate and blood pressure during therapy - DVT Risk due to restricted mobility and age - Skin Breakdown Risk due to restricted mobility and age ACTIVITIES OOB only with supervision THERAPIES: - Dietary and Nutrition Adequate Nutrition. Nutritional Education. Nutritional Supplements. - Occupational Therapy Cognitive Retraining. Patient needs Occupational Therapy for a daily minimum of 1.5 hours at least 5 out of 7 days, to improve Activities of Daily Living, including: Eating, Grooming, Bathing, Dressing, Toileting, Toilet Transfers, Community Reintegration, Higher functional activities, Adaptive Equipme nt, Splinting, Household Tasks, and Other activities as determined. Visual Perceptual Training. - Physical Therapy Patient needs Physical Therapy for a daily minimum of 1.5 hours at least 5 out of 7 days, to improve: Mobility, Strengthening, Transfers, Stretching, ROM, Endurance, Ability to manage stairs, Gait, and Balance. PHYSICAL EXAM - Gen Alert and awake Lying in bed No apparent distress Oriented to: person, time, and place - Skin No skin breakdown. No abnormalities - Eyes No abnormalities - ENMT No abnormalities - Neck No abnormalities - CVS RRR - Chest No abnormalities - Resp Course lungs bilaterally - Abd Soft - GI Non distended Deferred - No abnormalities - Ext Mild bilateral lower extremity edema. - MSK 4/5 weakness in both lower extremities. - Neuro No focal deficits - Psych No abnormalities ASSESSMENT: Pt. is a 81 yo male of unknown race.On 11/01/2021 he was admitted to [facility] with diagn osis Acute on chronic systolic (congestive) heart failure (I50.23).His impairment category is Cardiac 09 - Cardiac Disorders (09).Pre-morbidly, Pt. was independent/mod-I in Locomotion and Self-Care; an d he had good Endurance, Transfers Control, Balance, and Safety Awareness.Currently, he has deficits of Locomotion, Safety Awareness, Balance, Transfers Control, Self-Care, and Endurance.Pt. is now refe rred to [facility] for acute in-patient rehabilitation in order to maximize jemima cassidy's functional independence in activities of daily living, strength, ROM, and mobility.- Rehab Go al Patient has realistic goal of being discharged at assistance level 6-Marylou to reside at Home with Fam jasmin/Relatives. MDM/PLAN: - Physical Therapy Gait dysfunction - to improve, our physical therapists will perform initial evaluation of pt's statu s upon admission and devise an individualized program for Gait Training, and Wheel Chair mobility Inability to transfer - to improve, our physical therapists will perform initial evaluation of pt's status upon admission and devise an individualized program for Bed mobility Need for home safety evaluation - to improve, our physical therapists will perform initial evaluatio n of pt's status upon admission and devise an individualized program for Home Evaluation Need in caregiver upon discharge - to improve, our physical therapists will perform initial evaluati on of pt's status upon admission and devise an individualized program for Caregiver Training New precaution - to improve, our physical therapists will perform initial evaluation of pt's status upon admission and devise an individualized program for Patient precaution education Edema - to improve, our physical therapists will perform initial evaluation of pt's status upon admi ssion and devise an individualized program for Elevation Training, and Lymphedema Therapy Poor balance - to improve, our physical therapists will perform initial evaluation of pt's status up on admission and devise an individualized program for Balance Training Poor endurance - to improve, our physical therapists will perform initial evaluation of pt's status upon admission and devise an individualized program for Endurance Training Weakness - to improve, our physical therapists will perform initial evaluation of pt's status upon a dmission and devise an individualized program for Aquatic Therapy, Neuromuscular Reeducation, and Str engthening Achieving independence - to improve, our physical therapists will perform initial evaluation of pt's status upon admission and devise an individualized program for Community Reintegration Activities - Occupational Therapy ADL deficits - to improve, our occupation therapists will perform initial evaluation of pt's status upon admission and devise an individualized program for Bathing, Bed mobility, Community Reintegratio n, Cooking, Dressing, Eating, Fine Motor Skills, Grooming, Homemaking, Kitchen Mobility, Laundry, Pat ient Education, Safety Awareness, Splinting - Positioning, Transfers(Toilet, Tub, Shower), and Wheel Chair Management Need for childcare center director - to improve, our occupation therapists will perform initial evaluation of pt's status upon admission and devise an individualized program for Caregiver Training Weakness - to improve, our occupation therapists will perform initial evaluation of pt's status upon admission and devise an individualized program for Aquatic Therapy, Balance, Endurance, UE ROM, and UE strengthening - Other See attached MAR (Medication Administration Record) - Diet Type Continue Regular - Diet - Liquid Texture Continue Regular - Tube Feed Continue N/A - DVT Risk due to restricted mobility and age - Skin Breakdown Risk due to restricted mobility and age - Cardiac Precaution Assess/Monitor blood pressure, heart rate, lower extremity edema, notify MD for shortness of breath or chest pain Monitor patient for excessive elevation of heart rate and blood pressure during therapy - Fall Precaution Bed alarm TABS alarm Wheel chair alarm - Diet - Solid Texture Continue Regular - Shower allowing shower FUNCTIONAL STATUS: UPDATED AT WEEKLY TEAM CONFERENCE - Bladder Same accident frequency: 7-Ind - No accidents in the past 7 days - Bowel Same accident frequency: 7-Ind - No accidents in the past 7 days - Walking Same score based on distance walked: 0(N/A) Same score based on distance walked: 3(>=150ft) - Wheelchair Same score based on distance traveled: 0(N/A) FUNCTIONAL STATUS: - Self-Care A. Eating Ind B. Grooming Ind C. Bathing Hugo D. Dressing - Upper sup E. Dressing - Lower Hugo F. Toileting Hugo - Sphincter Control G. Bladder control Marylou H. Bowel control Marylou - Transfers Control I. Bed/Chair/Wheelchair sup J. Toilet sup K. Tub/Shower Hugo - Locomotion L. Walk/Wheelchair (B) Hugo M. Stairs Hugo - Communication N. Comprehension (B) Marylou O. Expression (B) Marylou - Social Cognition P. Social Interaction Ind Q. Problem Solving Marylou R. Memory Marylou - Endurance Good - Balance Good - Safety Awareness Good QI SCORES: - Self-Care A. Eating 04-Supervision or touching assistance B. Oral hygiene 04-Supervision or touching assistance C. Toileting hygiene 03-Partial/moderate assistance E. Shower/bathe self 03-Partial/moderate assistance F. Upper body dressing 04-Supervision or touching assistance G. Lower body dressing 03-Partial/moderate assistance H. Putting on/taking off footwear 03-Partial/moderate assistance - Mobility A. Roll left and right 04-Supervision or touching assistance B. Sit to lying 04-Supervision or touching assistance C. Lying to sitting on side of bed 04-Supervision or touching assistance D. Sit to stand 03-Partial/moderate assistance E. Chair/[id number]-[id number] transfer 03-Partial/moderate assistance F. Toilet transfer 03-Partial/moderate assistance G. Car transfer 88-Not attempted due to medical condition or safety concerns I. Walk 10 feet 04-Supervision or touching assistance J. Walk 50 feet with two turns 04-Supervision or touching assistance K. Walk 150 feet 04-Supervision or touching assistance L. Walking 10 feet on uneven surfaces 88-Not attempted due to medical condition or safety concerns M. 1 step (curb) 88-Not attempted due to medical condition or safety concerns N. 4 steps 88-Not attempted due to medical condition or safety concerns O. 12 steps 88-Not attempted due to medical condition or safety concerns P. Picking up object 88-Not attempted due to medical condition or safety concerns R. Wheel 50 feet with two turns 09-Not applicable S. Wheel 150 feet 09-Not applicable - Bladder and Bowel Bladder continence 2-Incontinent less than daily Bowel continence 1-Occasionally incontinent - Endurance Fair - Balance Fair - Safety Awareness Fair CURRENT FUNC. DEFICITS: Self-Care, Mobility, Endurance, Balance, and Safety Awareness SIGNATURE PANEL: (CDT)
[2021-11-17] MEDS: MELATONIN 5 MG TABLET PO PRN (20:19)
[2021-11-17] MEDS: LOSARTAN POTASSIUM 50 MG TABLET PO SCH (20:19)
--- OUTSIDE RECORDS SUMMARY | 2021-11-18 06:16 | XMS REPORT | Clinical Summary ---
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 Pulse 60 06/09/2021 11:25 AM BOX COVERING MACHINE OPERATOR Temperature 36.6 C (97.9 F) 12/10/2020 1:00 PM CDT Respiratory Rate 16 06/09/2021 11:25 AM BOX COVERING MACHINE OPERATOR Oxygen Saturation 95% 12/10/2020 1:00 PM CDT Inhaled Oxygen Concentration - - Weight 125 kg (275 lb 9.2 oz) 12/10/2020 1:00 PM CDT Height - - Body Mass Index - - Plan of Treatment Date Type Specialty Care Team Description 06/08/2022 Office Visit Dermatology Francy Anderson M D [address] [place], [place] [address] (Wo rk) Health Maintenance Due Date Last Done Comments COVID-19 Vaccination (3 - Booster for 12/26/2020 07/26/2020 , 06/28/2020 Moderna series) Results Not on fileafter 11/11/2020 Insurance Payer Benefit Plan Subscriber ID Effective Phone Address Typ e / Group Dates MEDICARE MEDICARE PART [id number] 2005-Pres [phone] [facility] Medicare A AND B ent [id number] [employer] [address] [facility] [place] [address] [place] [employer] [id number] 2016-Pres [address] [employer] ONLY ent [id number] [place] [address] [phone] [address] (Home) [phone] [place], [place] 8 (Work) [phone] Nirav Maria Jr Personal/Famil Self 1940 [phone] [address] (Home) [phone] [place], [place] 8 (Work) [address] Nirav Maria Jr Personal/Famil Self 1940 [phone] (Home) [place] [address] Care Teams Health Program Manager Relationship Specialty Start Date End Date Jayne Tucker MD PCP - General 07/01/15 06/23/21 Jayne Tucker MD Physician 07/08/15
--- OUTSIDE RECORDS SUMMARY | 2021-11-18 06:17 | XMS REPORT | Continuity of Care Document ---
:1940 Author Organization [facility] t Address [address] [place] [address] Care Team Providers Name Role Phone Caitlin JIMENEZ Primary Care Physician Unavailable Neeta JIMENEZ Attending Clinician Gaby RN, A Attending Clinician NEETA Attending Clinician Unavailable Payers Payer Name Policy Type Policy Number [...] Date Stop Date Quantity Comments Source History SDDE University o f Alcohol Frequency [facility] History SDOH University o f Alcohol Std [facility] History SDDE [facility] o f Alcohol Binge [facility] History of Cigar Smoker University o f tobacco use [facility] Tobacco use and 2021-06-09 2021-06-09 Smokeless tobacco Un iversity of exposure 00:00:00 00:00:00 non-user [facility] Alcohol intake 2021-06-09 2021-06-09 Current drinker Univsteffi rsity of 00:00:00 00:00:00 of alcohol [facility] ([facility] History SDOH 2021-06-09 2021-06-09 weekly University o f Alcohol Comment 00:00:00 00:00:00 [facility] Sex Assigned At [birth year] Universit y of 00:00:00 00:00:00 [place] MD Calix [facility] Smoking Status Start Date Stop Date Source Ex-smoker 2021-06-09 00:00:00 2021-06-09 00:00:00 [facility] Medications Ordered Filled Start Stop Current Ordering Indication Dosage Frequency Signature Comments Components Source Medication Medication Date Date Medication? Clinician (SIG) Name Name pantoprazol Yes 40mg Take 40 mg Univers e 2-09 by mouth ity of (PROTONIX) 11:28: daily. Blanka 40 mg EC 56 tablet [facility] simvastatin Yes Take by Uni vers (ZOCOR) 20 2-09 mouth at ity o f mg tablet 11:28: bedtime. Bhavani Arteaga MD [facility] UNABLE TO Yes 3 (three) Uni vers FIND 2-09 times a ity of 11:28: day. Med [place] [address] Name: MD Salinas [facility] pantoprazol Yes 40mg Take 40 mg Univers e 2-09 by mouth ity of (PROTONIX) 11:28: daily. [place] 40 mg EC 56 tablet [facility] simvastatin Yes Take by Uni vers (ZOCOR) 20 2-09 mouth at ity o f mg tablet 11:28: bedtime. [facility] UNABLE TO Yes 3 (three) Uni vers FIND 2-09 times a ity of 11:28: day. Med [place] [address] Name: MD Salinas [facility] BRINZOLAMID Yes 1[drp] Apply 1 U nivers E/BRIMONIDI 2-09 drop to ity o f NE TART 11:27: eye daily. Bhavani wallace (SIMBRINZA 35 One drop OPHTHALMIC) in each Yogi so eye BID. [facility] felodipine Yes 10mg Take 10 mg U nivers (PLENDIL) 2-09 by mouth ity of 10 MG 24 hr 11:27[place] 35 [place] Chito fernandez [facility] hydrochloro Yes 12.5mg Take 12.5 Univers thiazide 2-09 mg by ity of (HYDRODIURI 11:27: mouth [place] L) 12.5 mg 35 daily. MD chris Dale [facility] BRINZOLAMID Yes 1[drp] Apply 1 U nivers E/BRIMONIDI 2-09 drop to ity o f [place]ART 11:27: [place]. [place] (SIMBRINZA 35 One drop OPHTHALMIC) in each Yogi so eye BID. [facility] felodipine Yes 10mg Take 10 mg U nivers (PLENDIL) 2-09 by mouth ity of 10 MG 24 hr 11:27: [place]. [place] tablet 35 MD Dale [facility] hydrochloro Yes 12.5mg Take 12.5 Univers thiazide 2-09 mg by ity of (HYDRODIURI 11:27: mouth [place] L) 12.5 mg 35 daily. MD chris Dale [facility] aspirin 81 Yes 81mg Take 81 mg U nivers mg EC 2-09 by mouth ity of tablet 11:26: daily. Blanka 45 MD Chito fernandez [facility] aspirin 500 Yes 500mg Take 500 U nivers mg EC 2-09 mg by ity of tablet 11:26: mouth as [place] 45 needed. MD Chito fernandez [facility] aspirin 81 Yes 81mg Take 81 mg U nivers mg EC 2-09 by mouth ity of tablet 11:26: daily. Blanka 45 MD Dale [facility] aspirin 500 Yes 500mg Take 500 U nivers mg EC 2-09 mg by ity of tablet 11:26: mouth as [place] 45 needed. MD Chito fernandez [facility] azelastine Yes twice Univer s 205.5 mcg 1-27 daily. ity of (0.15 %) 00:00: [place] spry 00 MD Chito fernandez [facility] azelastine Yes twice Univer s 205.5 mcg 1-27 daily. ity of (0.15 %) 00:00: [place] spry 00 MD Chito fernandez [facility] torsemide Yes 20mg Take 20 mg Un socorro (DEMADEX) 7-19 by mouth ity of 20 mg 00:00: daily. tablet MD Dale [facility] torsemide Yes 20mg Take 20 mg Un socorro (DEMADEX) 7-19 by mouth ity of 20 mg 00:00: daily. tablet MD Dale [facility] econazole 2019-05 Yes Intertrigo Apply U nivers (SPECTAZOLE 2-20 topically ity of ) 1% cream 00:00: to affected MD area(s) Anderso twice n daily. [facility] econazole 2019-05 Yes Intertrigo Apply U nivers (SPECTAZOLE 2-20 topically ity of ) 1% cream 00:00: to affected MD area(s) Anderso twice n daily. [facility] latanoprost Yes 2[drp] Administer Univers (XALATAN) 9-30 2 drops to ity of 0.005% 00:00: both eyes [place] ophthalmic 00 daily. MD ibarra [facility] latanoprost Yes 2[drp] Administer Univers (XALATAN) 9-30 2 drops to ity of 0.005% 00:00: both eyes [place] ophthalmic 00 daily. MD fred Dale [facility] spironolact 2020- No TAKE 1 Uni vers one 09-2912 TABLET BY ity of (ALDACTONE) 00:00: 00:00 MOUTH [place] 25 mg 00 :00 EVERY DAY MD chris Dale [facility] spironolact 2020- No TAKE 1 Uni vers one 09-29 08-12 TABLET BY ity of (ALDACTONE) 00:00: 00:00 [place]TH [place] 25 mg 00 :00 EVERY DAY tablet [facility] timolol 2017-05 Yes INSTILL 1 Unive rs (TIMOPTIC-X 2-17 DROP INTO ity of R) 0.5 % 00:00: BOTH EYES [place] ophthalmic 00 IN THE MD gel-forming MORNING Yogi so [facility] timolol 2017-05 Yes INSTILL 1 Unive rs (TIMOPTIC-X 2-17 DROP INTO ity of R) 0.5 % 00:00: BOTH E[place] ophthalmic 00 IN THE MD gel-forming MORNING Yogi so n [facility] Yes Atopic Apply Uni vers ne 2-22 dermatitis, topically ity of (KENALOG) 00:00: not to [place] 0.1% cream 00 otherwise affected MD specified area(s) Anderso twice n daily. [facility] Yes Atopic Apply Uni vers ne 2-22 dermatitis, topically ity of (KENALOG) 00:00: not to [place] 0.1% cream 00 otherwise affected MD specified area(s) Anderso twice n daily. [facility] Vital Signs Vital Name Observation Time Observation Value Comments Source Systolic blood 2021-06-09 17:25:08 144 mm[Hg] Univer sity of pressure [facility] Diastolic blood 2021-06-09 17:25:08 72 mm[Hg] Unive rsity of pressure [facility] Heart rate 2021-06-09 17:25:08 60 /min [facility] Respiratory rate 2021-06-09 17:25:08 16 /min [facility] Body weight 2020-12-10 18:00:00 125 kg [facility] Oxygen saturation in 2020-12-10 18:00:00 95 /min [facility] Arterial blood by Blanka floreson Pulse oximetry [facility] Body temperature 2020-12-10 18:00:00 36.61 Leigha [facility] Procedures This patient has no known procedures. Plan of Care Planned Activity Planned Date Details Comments Source Future Scheduled 2021-10-29 COVID-19 Vaccination Uni versity of [place] Test 10:18:35 (3 - Booster for MD [facility] Moderna series) [code Center = COVID-19 Vaccination (3 - Booster for Moderna series)] Future Scheduled 2021-10-29 COVID-19 Vaccination Uni versity of [place] Test 10:18:35 (3 - Booster for [facility] Moderna series) [code Center = COVID-19 Vaccination (3 - Booster for Moderna series)] Encounters Start End Encounter Admission Attending Care Care Encounter Source Date/Time Date/Time Type Type Clinicians Facility Department ID 2021-07-08 Outpatient STLMLC STLMLC [id number] Common 14:09:04 [facility] 2021-06-09 2021-06-09 Office RAQUEL Santacruz, 1.2.840.1 [id number] Univers 11:15:00 12:33:14 Visit Nellie [id number] ity of 3.412.2.7 [place] .3.198852 MD Sadler [facility] 2021-06-09 2021-06-09 Office Neeta, 1.2.840.1 [id number] Univers 11:15:00 12:33:14 Visit Nellie 20096.1.1 ity of 3.412.2.7 [place] .[id number] MD Sadler [facility] 2021-06-09 2021-06-09 Travel 1.2.840.1 [id number] Univers 00:00:00 00:00:00 [id number] 350.1.13.41 ity of 3.412.2.7 2.2.7.3.698 [place] .[id number] 084.8 MD Sadler [facility] 2021-06-09 2021-06-09 Travel 1.2.840.1 [id number] Univers 00:00:00 00:00:00 [id number] 350.1.13.41 ity of 3.412.2.7 2.2.7.3.698 [place] .3.382499 084.8 MD Sadler [facility] 2020-12-10 2020-12-10 Office RAQUEL Santacruz, 1.2.840.1 [id number] Univers 12:20:00 13:26:24 Visit Nellie 48129.1.1 ity of 3.412.2.7 [place] .3.709171 MD Sadler [facility] 2020-12-10 2020-12-10 Office Neeta, 1.2.840.1 [id number] Univers 12:20:00 13:26:24 Visit Nellie 94823.1.1 ity of 3.412.2.7 [place] .3.975577 MD Martell8 [facility] 2020-12-10 2020-12-10 Travel 1.2.840.1 [id number] Univers 00:00:00 00:00:00 [id number] 350.1.13.41 ity of 3.412.2.7 2.2.7.3.698 [place] .3.407367 084.8 .8 [facility] 2020-12-10 2020-12-10 Travel 1.2.840.1 [id number] Univers 00:00:00 00:00:00 51594.1.1 350.1.13.41 ity of 3.412.2.7 2.2.7.3.698 [place] .3.266168 084.8 .Gladys [facility] 2020-11-26 2020-11-26 Orders Gaby, 1.2.840.1 [id number] Univers 00:00:00 00:00:00 Only Judith A 83140.1.1 it y of 3.412.2.7 [place] .3.944608 MD Martell8 [facility] 2020-11-26 2020-11-26 Orders Gaby, 1.2.840.1 [id number] Univers 00:00:00 00:00:00 Only Judith A 46098.1.1 it y of 3.412.2.7 [place] .[id number] MD Sadler [facility] 2020-04-15 2020-04-15 Outpatient RAQUEL SANTACRUZ MDA MDA [id number] 11:39:09 13:08:08 NELLIE fernandez 2020-04-15 2020-04-15 Outpatient RAQUEL SANTACRUZ MDA MDA [id number] MD 00:00:00 00:00:00 NELLIE fernandez 2020-02-12 2020-02-12 Outpatient RAQUEL SANTACRUZ MDA MDA [id number] 00:00:00 00:00:00 NELLIE fernandez Results This patient has no known results.
[2021-11-18 06:51] LABS: Absolute Lymphocytes (CBC) 1.3 K/uL (0.7-4.9); Hematocrit 38.9 % (39.6-49.0); Lymphocytes % 27.1 % (15.3-44.8); MCV 97.6 fL (80-100); RBC Red Blood Cell Count 3.98 M/uL (4.33-5.43)
[2021-11-18 07:00] LABS: Potassium 3.8 mmol/L (3.5-5.1)
[2021-11-18 07:04] LABS: Albumin 2.6 g/dL (3.4-5.0); Magnesium 2.4 mg/dL (1.8-2.4); Prealbumin 15.3 mg/dL (20-40)
[2021-11-18] MEDS: APIXABAN 5 MG TABLET PO SCH ×2 (07:33→20:21)
[2021-11-18] MEDS: DORZOLAMIDE OPTH SCH ×2 (08:23→20:23)
[2021-11-18] MEDS: BRIMONIDINE OPTH SCH ×2 (08:23→20:23)
[2021-11-18] MEDS: TIMOLOL OPTH SCH ×2 (08:23→20:23)
[2021-11-18] MEDS: LATANOPROST OPTH SCH ×2 (08:23→20:23)
[2021-11-18] MEDS: POTASSIUM CL SA 10 MEQ TAB PO SCH ×2 (08:24→20:22)
[2021-11-18] MEDS: acetaZOLAMIDE 250 MG TAB PO SCH ×2 (08:24→20:21)
[2021-11-18] MEDS: GUAIFENESIN 600 MG SA TAB PO SCH ×2 (08:25→20:22)
[2021-11-18] MEDS: FUROSEMIDE 40 MG TABLET PO SCH ×2 (08:25→17:02)
--- NOTE | 2021-11-18 10:06 | P.RH.PN ---
Estimated Length of Stay: 13 Expected Discharge Date: 11/24/21 Discharge Disposition Plan: Home Family Support: Yes Nursing Home Goal: Mobility, Transfers, Self Care Vital Signs: Last Vital Signs Temp 97 F 11/18/21 06:57 Pulse 54 11/18/21 08:25 Resp 16 11/18/21 06:57 BP 140/65 11/18/21 08:25 Pulse Ox 96 11/18/21 06:57 Laboratory: Laboratory Last Values WBC 4.9 K/uL (4.3-10.9) D 11/18/21 06:14 RBC 3.98 M/uL (4.33-5.43) L 11/18/21 06:14 Hgb 13.1 g/dL (13.6-17.9) L 11/18/21 06:14 Hct 38.9 % (39.6-49.0) L 11/18/21 06:14 MCV 97.6 fL (80-100) 11/18/21 06:14 MCH 32.9 pg (27.0-35.0) 11/18/21 06:14 MCHC 33.7 g/dL (32.0-36.0) 11/18/21 06:14 RDW 15.3 % (12.1-15.2) H 11/18/21 06:14 Plt Count 239 K/uL (152-406) 11/18/21 06:14 MPV 8.0 fL (7.6-11.3) 11/18/21 06:14 Neutrophils % 50.5 % (41.7-73.7) 11/18/21 06:14 Lymphocytes % 27.1 % (15.3-44.8) 11/18/21 06:14 Monocytes % 18.6 % (3.3-12.3) H 11/18/21 06:14 Eosinophils % 3.1 % (0-4.4) 11/18/21 06:14 Basophils % 0.7 % (0-1.3) 11/18/21 06:14 Absolute Neutrophils 2.5 K/uL (1.8-8.0) 11/18/21 06:14 Absolute Lymphocytes 1.3 K/uL (0.7-4.9) 11/18/21 06:14 Absolute Monocytes 0.9 K/uL (0.1-1.3) 11/18/21 06:14 Absolute Eosinophils 0.2 K/uL (0-0.5) 11/18/21 06:14 Absolute Basophils 0.0 K/uL (0-0.5) 11/18/21 06:14 Sodium 143 mmol/L (136-145) 11/18/21 06:14 Potassium 3.8 mmol/L (3.5-5.1) 11/18/21 06:14 Chloride 111 mmol/L (98-107) H 11/18/21 06:14 Carbon Dioxide 28 mmol/L (21-32) 11/18/21 06:14 Anion Gap 7.8 mEq/L (5.0-15.0) 11/18/21 06:14 BUN 16 mg/dL (7-18) 11/18/21 06:14 Creatinine 0.79 mg/dL (0.55-1.3) 11/18/21 06:14 Est GFR (CKD-EPI) 90 ml/min (=/>90) 11/18/21 06:14 Glucose 99 mg/dL (74-106) 11/18/21 06:14 Calcium 8.2 mg/dL (8.5-10.1) L 11/18/21 06:14 Magnesium 2.4 mg/dL (1.8-2.4) 11/18/21 06:14 Albumin 2.6 g/dL (3.4-5.0) L 11/18/21 06:14 Prealbumin 15.3 mg/dL (20-40) L 11/18/21 06:14 Urine Color Yellow (Yellow) 11/12/21 03:20 Urine Clarity Clear (Clear) 11/12/21 03:20 Urine pH 7.0 (5.0-7.0) 11/12/21 03:20 Ur Specific [place] 1.015 (1.005-1.030) 11/12/21 03:20 Glucose (UA)(Auto) Negative (Negative) 11/12/21 03:20 Urine Ketones Negative (Negative) 11/12/21 03:20 Urine Blood Negative (Negative) 11/12/21 03:20 Urine Nitrite Negative (Negative) 11/12/21 03:20 Urine Bilirubin Negative (Negative) 11/12/21 03:20 Urine Urobilinogen 4.0 mg/dL (0.2-1.0) H 11/12/21 03:20 Ur Leukocyte Esterase Negative (Negative) 11/12/21 03:20 Urine RBC <5 /HPF (None Seen) 11/12/21 03:20 Urine Red Cell Clumps Cancelled 11/12/21 01:05 Urine WBC <5 /HPF (<5) 11/12/21 03:20 Urine WBC Clumps Cancelled 11/12/21 01:05 Ur Squamous Epith Cells <5 /HPF (None Seen) 11/12/21 03:20 U Non-Squamous Epi Cells Cancelled 11/12/21 01:05 Ur Transition Epith Cell Cancelled 11/12/21 01:05 Ur Renal Epithelial Cell Cancelled 11/12/21 01:05 Calcium Carbonate Cryst Cancelled 11/12/21 01:05 Calcium Oxalate Crystal Cancelled 11/12/21 01:05 Leucine Crystals Cancelled 11/12/21 01:05 Cystine Crystals Cancelled 11/12/21 01:05 Uric Acid Crystals Cancelled 11/12/21 01:05 Triple Phos Crystals Cancelled 11/12/21 01:05 Tyrosine Crystals Cancelled 11/12/21 01:05 Unidentified Crystals Cancelled 11/12/21 01:05 Amorphous Crystals Cancelled 11/12/21 01:05 Urine Bacteria <20 /HPF (<20) 11/12/21 03:20 Hyaline Casts Cancelled 11/12/21 01:05 Granular Casts Cancelled 11/12/21 01:01 Waxy Casts Cancelled 11/12/21 01:05 RBC Casts Cancelled 11/12/21 01:05 WBC Casts Cancelled 11/12/21 01:05 Urine Mucus Cancelled 11/12/21 01:05 Urine Trichomonas Cancelled 11/12/21 01:05 Ur Yeast w Hyphae Cancelled 11/12/21 01:05 Urine Yeast (Budding) Cancelled 11/12/21 01:05 Urine Sperm Cancelled 11/12/21 01:05 Ur Oval Fat Bodies Cancelled 11/12/21 01:05 Ur Microscopic Review Cancelled 11/12/21 01:05 Urine Total Protein Negative (Negative) 11/12/21 03:20 Urine Ascorbic Acid Cancelled 11/12/21 01:05 Urine Fat Cancelled 11/12/21 01:05 Weight: 258 lb 4.8 oz Wound Present: Yes Closed Surgical Incision Present: No Negative Pressure Wound Therapy Present: No Physician Update: Labs were reviewed. Bed mobility, transfers, walking 250' x 2 with mod I, O2 is 94 to 96 %. SBA for all ADLs. Summary: Patient's care plan and manager terminal goals have been reviewed and revised as necessary. Please see the Rehabilitation Signature page for all necessary signatures.
[2021-11-18] MEDS: LOSARTAN POTASSIUM 50 MG TABLET PO SCH (20:21)
[2021-11-18] MEDS: MELATONIN 5 MG TABLET PO PRN (20:23)
[2021-11-19] MEDS: DORZOLAMIDE OPTH SCH ×2 (07:06→19:34)
[2021-11-19] MEDS: BRIMONIDINE OPTH SCH ×2 (07:06→19:34)
[2021-11-19] MEDS: TIMOLOL OPTH SCH ×2 (07:06→19:34)
[2021-11-19] MEDS: LATANOPROST OPTH SCH ×2 (07:06→19:34)
[2021-11-19] MEDS: POTASSIUM CL SA 10 MEQ TAB PO SCH ×2 (07:35→19:33)
[2021-11-19] MEDS: APIXABAN 5 MG TABLET PO SCH ×2 (07:36→19:33)
[2021-11-19] MEDS: acetaZOLAMIDE 250 MG TAB PO SCH ×2 (07:36→19:33)
[2021-11-19] MEDS: FUROSEMIDE 40 MG TABLET PO SCH ×2 (07:36→17:01)
[2021-11-19] MEDS: GUAIFENESIN 600 MG SA TAB PO SCH ×2 (07:37→19:33)
[2021-11-19] MEDS: LOSARTAN POTASSIUM 50 MG TABLET PO SCH (19:33)
[2021-11-19] MEDS: MELATONIN 5 MG TABLET PO PRN (21:50)
[2021-11-20 05:50] VITALS: BMI 34.7
[2021-11-20] MEDS: TIMOLOL OPTH SCH ×2 (07:17→20:03)
[2021-11-20] MEDS: BRIMONIDINE OPTH SCH ×2 (07:17→20:03)
[2021-11-20] MEDS: LATANOPROST OPTH SCH ×2 (07:17→20:03)
[2021-11-20] MEDS: DORZOLAMIDE OPTH SCH ×2 (07:17→20:03)
[2021-11-20] MEDS: POTASSIUM CL SA 10 MEQ TAB PO SCH ×2 (08:38→20:02)
[2021-11-20] MEDS: GUAIFENESIN 600 MG SA TAB PO SCH ×2 (08:39→20:02)
[2021-11-20] MEDS: acetaZOLAMIDE 250 MG TAB PO SCH ×2 (08:40→20:02)
[2021-11-20] MEDS: APIXABAN 5 MG TABLET PO SCH ×2 (08:40→20:02)
[2021-11-20] MEDS: FUROSEMIDE 40 MG TABLET PO SCH ×2 (08:40→16:46)
[2021-11-20] MEDS ORDERED: MAGNESIUM OXIDE 400 MG TAB PO ONE (10:52)
[2021-11-20] MEDS: LOSARTAN POTASSIUM 50 MG TABLET PO SCH (20:02)
[2021-11-20] MEDS: MELATONIN 5 MG TABLET PO PRN (22:12)
[2021-11-21] MEDS: APIXABAN 5 MG TABLET PO SCH ×2 (07:39→20:07)
[2021-11-21] MEDS: LATANOPROST OPTH SCH ×2 (07:40→20:06)
[2021-11-21] MEDS: TIMOLOL OPTH SCH ×2 (07:40→20:06)
[2021-11-21] MEDS: DORZOLAMIDE OPTH SCH ×2 (07:40→20:06)
[2021-11-21] MEDS: BRIMONIDINE OPTH SCH ×2 (07:40→20:06)
[2021-11-21] MEDS: FUROSEMIDE 40 MG TABLET PO SCH ×2 (08:45→17:06)
[2021-11-21] MEDS: GUAIFENESIN 600 MG SA TAB PO SCH ×2 (08:45→20:07)
[2021-11-21] MEDS: acetaZOLAMIDE 250 MG TAB PO SCH ×2 (08:45→20:07)
[2021-11-21] MEDS: POTASSIUM CL SA 10 MEQ TAB PO SCH ×2 (08:47→20:07)
[2021-11-21] MEDS: LOSARTAN POTASSIUM 50 MG TABLET PO SCH (20:07)
[2021-11-21] MEDS: MELATONIN 5 MG TABLET PO PRN (22:11)
[2021-11-22 06:36] LABS: Absolute Lymphocytes (CBC) 1.6 K/uL (0.7-4.9); Hematocrit 38.4 % (39.6-49.0); Lymphocytes % 29.3 % (15.3-44.8); MCV 97.5 fL (80-100); MPV 7.6 fL (7.6-11.3); RBC Red Blood Cell Count 3.94 M/uL (4.33-5.43)
[2021-11-22 06:47] LABS: Potassium 3.7 mmol/L (3.5-5.1)
[2021-11-22] MEDS: DORZOLAMIDE OPTH SCH ×2 (07:07→20:54)
[2021-11-22] MEDS: LATANOPROST OPTH SCH ×2 (07:07→20:54)
[2021-11-22] MEDS: BRIMONIDINE OPTH SCH ×2 (07:07→20:54)
[2021-11-22] MEDS: TIMOLOL OPTH SCH ×2 (07:07→20:54)
[2021-11-22] MEDS: APIXABAN 5 MG TABLET PO SCH ×2 (07:53→20:54)
[2021-11-22] MEDS: acetaZOLAMIDE 250 MG TAB PO SCH ×2 (07:53→20:54)
[2021-11-22] MEDS: GUAIFENESIN 600 MG SA TAB PO SCH ×2 (07:53→20:53)
[2021-11-22] MEDS: FUROSEMIDE 40 MG TABLET PO SCH ×2 (07:53→16:39)
[2021-11-22] MEDS: POTASSIUM CL SA 10 MEQ TAB PO SCH ×2 (07:53→20:54)
[2021-11-22] MEDS: LOSARTAN POTASSIUM 50 MG TABLET PO SCH (20:54)
[2021-11-22] MEDS: MELATONIN 5 MG TABLET PO PRN (20:56)
[2021-11-23] MEDS: DORZOLAMIDE OPTH SCH ×2 (06:21→21:57)
[2021-11-23] MEDS: BRIMONIDINE OPTH SCH ×2 (06:21→21:57)
[2021-11-23] MEDS: LATANOPROST OPTH SCH ×2 (06:21→21:57)
[2021-11-23] MEDS: TIMOLOL OPTH SCH ×2 (06:21→21:57)
[2021-11-23] MEDS: FUROSEMIDE 40 MG TABLET PO SCH ×2 (07:38→16:28)
[2021-11-23] MEDS: POTASSIUM CL SA 10 MEQ TAB PO SCH ×2 (07:38→19:55)
[2021-11-23] MEDS: acetaZOLAMIDE 250 MG TAB PO SCH ×2 (07:38→19:55)
[2021-11-23] MEDS: GUAIFENESIN 600 MG SA TAB PO SCH ×2 (07:38→19:56)
[2021-11-23] MEDS: APIXABAN 5 MG TABLET PO SCH ×2 (07:39→19:56)
[2021-11-23] MEDS: LOSARTAN POTASSIUM 50 MG TABLET PO SCH (19:56)
[2021-11-23] MEDS: MELATONIN 5 MG TABLET PO PRN (19:56)
--- NOTE | 2021-11-23 20:09 | R.PN ---
PROGRESS NOTES ENCOUNTER DATE AND TIME: 11/23/2021 20:07 (CDT) NAME ALICIA LAM DATE OF : 1940 DATE OF ADMISSION: 11/11/2021 18:50 (CDT) Acute on chronic systolic (congestive) heart failure (I50.23)CHIEF COMPLAINT: Acute on chronic systolic CHF SUBJECTIVE: Pt denied any Shortness of Breath. Pt denied any depression. Ambulated 1500' with rolling walker and modified independence. Up and down 15 steps with standby assi stance. WBC 5.4, Hgb 13.2, prealbumin 15.3, UA is essentially normal. VITAL SIGNS Temperature: 97.8 F SBP/DBP: 128/68 Pulse: 56 Resp: 16 MEDICATION ALLERGIES: No Known Drug Allergies (NKDA) ENVIRONMENTAL ALLERGIES: - Substance Allergies None Known - Other Allergies None Known NURSING: - Shower allowing shower PRECAUTIONS: - Fall Precaution Bed alarm TABS alarm Wheel chair alarm - Cardiac Precaution Assess/Monitor blood pressure, heart rate, lower extremity edema, notify MD for shortness of breath o r chest pain Monitor patient for excessive elevation of heart rate and blood pressure during therapy - DVT Risk due to restricted mobility and age - Skin Breakdown Risk due to restricted mobility and age ACTIVITIES OOB only with supervision THERAPIES: - Dietary and Nutrition Adequate Nutrition. Nutritional Education. Nutritional Supplements. - Occupational Therapy Cognitive Retraining. Patient needs Occupational Therapy for a daily minimum of 1.5 hours at least 5 out of 7 days, to improve Activities of Daily Living, including: Eating, Grooming, Bathing, Dressing, Toileting, Toilet Transfers, Community Reintegration, Higher functional activities, Adaptive Equipme nt, Splinting, Household Tasks, and Other activities as determined. Visual Perceptual Training. - Physical Therapy Patient needs Physical Therapy for a daily minimum of 1.5 hours at least 5 out of 7 days, to improve: Mobility, Strengthening, Transfers, Stretching, ROM, Endurance, Ability to manage stairs, Gait, and Balance. PHYSICAL EXAM - Gen Alert and awake Lying in bed No apparent distress Oriented to: person, time, and place - Skin No skin breakdown. No abnormalities - Eyes No abnormalities - ENMT No abnormalities - Neck No abnormalities - CVS RRR - Chest No abnormalities - Resp Course lungs bilaterally - Abd Soft - GI Non distended Deferred - No abnormalities - Ext Mild bilateral lower extremity edema. - MSK 4/5 weakness in both lower extremities. - Neuro No focal deficits - Psych No abnormalities ASSESSMENT: Pt. is a 81 yo male of unknown race.On 11/01/2021 he was admitted to [facility] with diagn osis Acute on chronic systolic (congestive) heart failure (I50.23).His impairment category is Cardiac 09 - Cardiac Disorders (09).Pre-morbidly, Pt. was independent/mod-I in Locomotion and Self-Care; an d he had good Endurance, Transfers Control, Balance, and Safety Awareness.Currently, he has deficits of Locomotion, Safety Awareness, Balance, Transfers Control, Self-Care, and Endurance.Pt. is now refe rred to [facility] for acute in-patient rehabilitation in order to maximize jemima ange's functional independence in activities of daily living, strength, ROM, and mobility.- Rehab Go al Patient has realistic goal of being discharged at assistance level 6-Marylou to reside at Home with Fam jasmin/Relatives. MDM/PLAN: - Physical Therapy Gait dysfunction - to improve, our physical therapists will perform initial evaluation of pt's statu s upon admission and devise an individualized program for Gait Training, and Wheel Chair mobility Inability to transfer - to improve, our physical therapists will perform initial evaluation of pt's status upon admission and devise an individualized program for Bed mobility Need for home safety evaluation - to improve, our physical therapists will perform initial evaluatio n of pt's status upon admission and devise an individualized program for Home Evaluation Need in caregiver upon discharge - to improve, our physical therapists will perform initial evaluati on of pt's status upon admission and devise an individualized program for Caregiver Training New precaution - to improve, our physical therapists will perform initial evaluation of pt's status upon admission and devise an individualized program for Patient precaution education Edema - to improve, our physical therapists will perform initial evaluation of pt's status upon admi ssion and devise an individualized program for Elevation Training, and Lymphedema Therapy Poor balance - to improve, our physical therapists will perform initial evaluation of pt's status up on admission and devise an individualized program for Balance Training Poor endurance - to improve, our physical therapists will perform initial evaluation of pt's status upon admission and devise an individualized program for Endurance Training Weakness - to improve, our physical therapists will perform initial evaluation of pt's status upon a dmission and devise an individualized program for Aquatic Therapy, Neuromuscular Reeducation, and Str engthening Achieving independence - to improve, our physical therapists will perform initial evaluation of pt's status upon admission and devise an individualized program for Community Reintegration Activities - Occupational Therapy ADL deficits - to improve, our occupation therapists will perform initial evaluation of pt's status upon admission and devise an individualized program for Bathing, Bed mobility, Community Reintegratio n, Cooking, Dressing, Eating, Fine Motor Skills, Grooming, Homemaking, Kitchen Mobility, Laundry, Pat ient Education, Safety Awareness, Splinting - Positioning, Transfers(Toilet, Tub, Shower), and Wheel Chair Management Need for housekeeper caregiver - to improve, our occupation therapists will perform initial evaluation of pt's status upon admission and devise an individualized program for Caregiver Training Weakness - to improve, our occupation therapists will perform initial evaluation of pt's status upon admission and devise an individualized program for Aquatic Therapy, Balance, Endurance, UE ROM, and UE strengthening - Other See attached MAR (Medication Administration Record) - Diet Type Continue Regular - Diet - Liquid Texture Continue Regular - Tube Feed Continue N/A - DVT Risk due to restricted mobility and age - Skin Breakdown Risk due to restricted mobility and age - Cardiac Precaution Assess/Monitor blood pressure, heart rate, lower extremity edema, notify MD for shortness of breath or chest pain Monitor patient for excessive elevation of heart rate and blood pressure during therapy - Fall Precaution Bed alarm TABS alarm Wheel chair alarm - Diet - Solid Texture Continue Regular - Shower allowing shower FUNCTIONAL STATUS: UPDATED AT WEEKLY TEAM CONFERENCE - Bladder Same accident frequency: 7-Ind - No accidents in the past 7 days - Bowel Same accident frequency: 7-Ind - No accidents in the past 7 days - Walking Same score based on distance walked: 0(N/A) Same score based on distance walked: 3(>=150ft) - Wheelchair Same score based on distance traveled: 0(N/A) FUNCTIONAL STATUS: - Self-Care A. Eating Ind B. Grooming Ind C. Bathing Hugo D. Dressing - Upper sup E. Dressing - Lower Hugo F. Toileting Hugo - Sphincter Control G. Bladder control Marylou H. Bowel control Marylou - Transfers Control I. Bed/Chair/Wheelchair sup J. Toilet sup K. Tub/Shower Hugo - Locomotion L. Walk/Wheelchair (B) Hugo M. Stairs Hugo - Communication N. Comprehension (B) Marylou O. Expression (B) Marylou - Social Cognition P. Social Interaction Ind Q. Problem Solving Marylou R. Memory Marylou - Endurance Good - Balance Good - Safety Awareness Good QI SCORES: - Self-Care A. Eating 04-Supervision or touching assistance B. Oral hygiene 04-Supervision or touching assistance C. Toileting hygiene 03-Partial/moderate assistance E. Shower/bathe self 03-Partial/moderate assistance F. Upper body dressing 04-Supervision or touching assistance G. Lower body dressing 03-Partial/moderate assistance H. Putting on/taking off footwear 03-Partial/moderate assistance - Mobility A. Roll left and right 04-Supervision or touching assistance B. Sit to lying 04-Supervision or touching assistance C. Lying to sitting on side of bed 04-Supervision or touching assistance D. Sit to stand 03-Partial/moderate assistance E. Chair/[id number] transfer 03-Partial/moderate assistance F. Toilet transfer 03-Partial/moderate assistance G. Car transfer 88-Not attempted due to medical condition or safety concerns I. Walk 10 feet 04-Supervision or touching assistance J. Walk 50 feet with two turns 04-Supervision or touching assistance K. Walk 150 feet 04-Supervision or touching assistance L. Walking 10 feet on uneven surfaces 88-Not attempted due to medical condition or safety concerns M. 1 step (curb) 88-Not attempted due to medical condition or safety concerns N. 4 steps 88-Not attempted due to medical condition or safety concerns O. 12 steps 88-Not attempted due to medical condition or safety concerns P. Picking up object 88-Not attempted due to medical condition or safety concerns R. Wheel 50 feet with two turns 09-Not applicable S. Wheel 150 feet 09-Not applicable - Bladder and Bowel Bladder continence 2-Incontinent less than daily Bowel continence 1-Occasionally incontinent - Endurance Fair - Balance Fair - Safety Awareness Fair CURRENT FUNC. DEFICITS: Self-Care, Mobility, Endurance, Balance, and Safety Awareness SIGNATURE PANEL: (CDT)
[2021-11-23 20:35] VITALS: O2SAT 97
[2021-11-24 07:20] VITALS: BP 142/69; TEMP 96.7
[2021-11-24] MEDS: GUAIFENESIN 600 MG SA TAB PO SCH (07:34)
[2021-11-24] MEDS: acetaZOLAMIDE 250 MG TAB PO SCH (07:35)
[2021-11-24] MEDS: APIXABAN 5 MG TABLET PO SCH (07:36)
[2021-11-24] MEDS: POTASSIUM CL SA 10 MEQ TAB PO SCH (07:36)
[2021-11-24] MEDS: TIMOLOL OPTH SCH (07:37)
[2021-11-24] MEDS: BRIMONIDINE OPTH SCH (07:37)
[2021-11-24] MEDS: FUROSEMIDE 40 MG TABLET PO SCH (07:37)
[2021-11-24] MEDS: DORZOLAMIDE OPTH SCH (07:37)
[2021-11-24] MEDS: LATANOPROST OPTH SCH (07:37)
== END 2021-11-24 11:15 | disposition home health service (06) | DRG 948 ==
LOC: 5TH 18:50
PROVIDERS: ADMIT Psychiatry & Neurology Neurology with Special Qualifications in Child Neurology; ATTEND Psychiatry & Neurology Neurology with Special Qualifications in Child Neurology
DX: R53.1 Weakness (principal); I50.22 Chronic systolic (congestive) heart failure; I11.0 Hypertensive heart disease with heart failure; K21.9 Gastro-esophageal reflux disease without esophagitis; I48.91 Unspecified atrial fibrillation; Z86.16 Personal history of COVID-19
CPT/HCPCS: 36415; 80048; 81001; 82040; 83735; 83986; 84134; 85025; 87086; 87088; 94010; 97110; 97116; 97161; 97165; 97530; 97542; J1650

== ENCOUNTER 2023-01-01 14:36 | Emergency (ER) | payer OTHER, MEDICARE ==
--- OUTSIDE RECORDS SUMMARY | 2023-01-01 14:42 | XMS REPORT | Continuity of Care Document ---
:1940 Author Organization [facility] t Address [address] [place] [address] Care Team Providers Name Role Phone Jayne Tucker MD Primary Care Physician Unavailable Nellie Santacruz MD Attending Clinician NELLIE SANTACRUZ Attending Clinician Unavailable Gaby RAINES, Judith Srinivasan Attending Clinician Payers Payer Name Policy Type Policy Number Effective Date Expiration Date S ource Problems This patient has no known problems. Allergies, Adverse Reactions, Alerts Allergy Allergy Status Severity Reaction(s) Onset Inactive Treating Comm ents Source Name Type Date Date Clinician SULFAMET DRUG Active MD HOXAZOLE 8-08 Anderso (BULK) 00:00: n 00 SULFAMET DRUG Active MD HOXAZOLE 8-08 Anderso (BULK) 00:00: n 00 SULFAMET DRUG Active MD HOXAZOLE 8-08 Anderso (BULK) 00:00: n 00 SULFAMET DRUG Active MD HOXAZOLE 8-08 Anderso (BULK) 00:00: n 00 SULFAMET DRUG Active MD HOXAZOLE 8-08 Anderso (BULK) 00:00: n 00 SULFAMET DRUG Active MD HOXAZOLE 8-08 Anderso (BULK) 00:00: n 00 SULFAMET DRUG Active MD HOXAZOLE 12-06 Anderso (BULK) 00:00: n 00 SULFAMET DRUG Active MD HOXAZOLE 12-06 Anderso (BULK) 00:00: n 00 Sulfamet Propensi Active Unknown Unive rs hoxazole ty to 12-06 reaction ity of (Bulk) adverse 00:00: [place] reaction 00 MD rodrigo [facility] Social History Social Habit Start Date Stop Date Quantity Comments Source History of Cigar Smoker Sum[place] o f tobacco use [place] MD [facility] History SDOH University o f Alcohol Frequency [facility] History SDOH University o f Alcohol Std [place] MD [facility]ricio [facility] History SDOH University o f Alcohol Binge [place] MD Yulissa murphy [facility] Alcohol intake 2022-06-08 2022-06-08 Current drinker Unive rsity of 00:00:00 00:00:00 of alcohol [place] MD Yogi swift (finding) [facility] Center Alcohol Comment 2021-06-09 2021-06-09 weekly Universit y of 00:00:00 00:00:00 Blanka swift [facility] Tobacco use and 2021-06-09 2021-06-09 Smokeless tobacco Un iversity of exposure 00:00:00 00:00:00 non-user Blanka swift [facility] Sex Assigned At [birth year] Universit y of 00:00:00 00:00:00 Blanka swift [facility] Smoking Status Start Date Stop Date Source Ex-smoker 2021-06-09 00:00:00 2021-06-09 00:00:00 Universi ty of [facility] Medications Ordered Filled Start Stop Current Ordering Indication Dosage Frequency Signature Comments Components Source Medication Medication Date Date Medication? Clinician (SIG) Name Name BRINZOLAMID 2022- No 1[drp] Apply 1 Univers E/BRIMONIDI 06-08 drop to ity of [place] TART 10:25: 00:00 eye daily. Nirav as (SIMBRINZA 10 :00 One drop OPHTHALMIC) in each Yogi so eye BID. [facility] aspirin 81 2023-0 2023- No 81mg Take 81 mg Univers mg EC 06-0808 by mouth ity of tablet 10:25: 00:00 daily. [place] 10 :00 MD Chito fernandez [facility] aspirin 500 2022- No 500mg Take 500 Univers mg EC 06-0808 mg by ity of tablet 10:25: 00:00 mouth as [place] 10 :00 needed. MD Chito fernandez [facility] felodipine 2022- No 10mg Take 10 mg Univers (PLENDIL) 06-08 by mouth ity o f 10 MG 24 hr 10:25: 00:00 daily. Nirav as tablet 10 :00 MD Chito fernandez [facility] hydrochloro 2022- No 12.5mg Take 12.5 Univers thiazide 06-08 mg by ity of (HYDRODIURI 10:25: 00:00 [place] L) 12.5 mg 10 :00 daily. MD chris fernandez [facility] pantoprazol 2022- No 40mg Take 40 mg Univers e 06-08 by mouth ity of (PROTONIX) 10:25: 00:00 daily. Nirava s 40 mg EC 10 :00 MD chris [facility] UNABLE TO 2022- No 3 (three) Un socorro FIND 06-08- times a ity of 10:25: 00:00 day. Med [place] 10 :00 Name: Isoflex Chito fernandez [facility] multivitami Yes 1{capsu Take 1 U nivers n capsule 06-08 le} capsule by ity of 10:18: mouth [place] 05 daily. MD Chito fernandez [facility] vitamin E, Yes Take by Univ ers dl,tocopher 2-08 mouth. ity of yl acet, 10:18: [place] (vitamin E, 05 acetate,) [facility] simvastatin Yes Take by Uni vers (ZOCOR) 20 2-08 mouth at ity o f mg tablet 10:11: [place]time[place] 22 MD Chito fernandez [facility] Eliquis 5 Yes Univers mg tablet -06 ity of 00:00: [place] 00 MD [facility] famotidine 2021-05 Yes TAKE 1 Unive rs (PEPCID) 20 2-27 TABLET BY ity of mg tablet 00:00: MOUTH [place] 00 EVERYDAY MD AT BEDTIME [facility] omeprazole 2021-05 Yes TAKE 1 Unive rs (PriLOSEC) 2-13 CAPSULE BY ity of 20 mg 00:00: MOUTH [place] capsule 00 EVERY DAY MD IN THE [facility] acetaZOLAMI 2021-05 Yes TAKE 1 Univ ers DE (DIAMOX) 1-21 TABLET BY ity of 250 mg 00:00: MOUTH [place] tablet 00 TWICE A MD DAY [facility] losartan 2021-05 Yes TAKE 1 Univers (COZAAR) 50 1-16 TABLET BY ity of mg tablet 00:00: MOUTH [place] 00 EVERY DAY IN THE [facility] potassium 2021-05 Yes TAKE 1 Univer s chloride 1-07 TABLET BY ity of (K-DUR,KLOR 00:00: MOUTH [place] -CON M) 10 00 TWICE A MD mEq tablet DAY [facility] furosemide Yes TWICE Univer s (LASIX) 40 7-26 DAILY AT ity o f mg tablet 00:00: 9am & 5pm Nirav as 00 [facility] pantoprazol Yes 40mg Take 40 mg Univers e 2-09 by mouth ity of (PROTONIX) 11:28: daily. [place] 40 mg EC 56 MD tablet [facility] simvastatin Yes Take by Uni vers (ZOCOR) 20 2-09 mouth at ity o f mg tablet 11:28: bedtime. Bhavani s 56 [facility] UNABLE TO Yes 3 (three) Uni vers FIND 2-09 times a ity of 11:28: day. Med Blanka 56 Name: Isoflex [facility] pantoprazol Yes 40mg Take 40 mg Univers e 2-09 by mouth ity of (PROTONIX) 11:28: daily. [place] 40 mg EC 56 MD tablet [facility] simvastatin Yes Take by Uni vers (ZOCOR) 20 2-09 mouth at ity o f mg tablet 11:28: bedtime. Nirava s 56 [facility] UNABLE TO Yes 3 (three) Uni vers FIND 2-09 times a ity of 11:28: day. Yuniel Moscoso 56 Name: MD [facility] BRINZOLAMID Yes 1[drp] Apply 1 U nivers E/BRIMONIDI 2-09 drop to ity o f [place] 11:27: [place]. [place] (SIMBRINZA 35 One drop OPHTHALMIC) in each Yogi so eye BID. [facility] felodipine Yes 10mg Take 10 mg U nivers (PLENDIL) 2-09 by mouth ity of 10 MG 24 hr 11:27: daily. Nirava s tablet 35 [facility] hydrochloro Yes 12.5mg Take 12.5 Univers thiazide 2-09 mg by ity of (HYDRODIURI 11:27: mouth [place] L) 12.5 mg 35 [address] BRINZOLAMID Yes 1[drp] Apply 1 U nivers E/BRIMONIDI 2-09 drop to ity o f [place] 11:27: [place]. [place] (SIMBRINZA 35 One drop OPHTHALMIC) in each Yogi so eye BID. [facility] felodipine Yes 10mg Take 10 mg U nivers (PLENDIL) 2-09 by mouth ity of 10 MG 24 hr 11:27: daily. Nirava s tablet 35 [facility] hydrochloro Yes 12.5mg Take 12.5 Univers thiazide 2-09 mg by ity of (HYDRODIURI 11:27: mouth [place] L) 12.5 mg 35 daily. MD [facility] aspirin 81 Yes 81mg Take 81 mg U nivers mg EC 2-09 by mouth ity of tablet 11:26: daily. Blanka 45 MD [facility] aspirin 500 Yes 500mg Take 500 U nivers mg EC 2-09 mg by ity of tablet 11:26: mouth as [place] 45 needed. MD [facility] aspirin 81 Yes 81mg Take 81 mg U nivers mg EC 2-09 by mouth ity of tablet 11:26: daily. 45 MD Chito fernandez [facility] aspirin 500 0 Yes 500mg Take 500 U nivers mg EC 2-09 mg by ity of tablet 11:26: mouth as [place] 45 needed. MD Chito fernandez [facility] azelastine 0 Yes twice Univer s 205.5 mcg 1-27 daily. ity of (0.15 %) 00:00: [place] spry 00 MD Chito fernandez [facility] azelastine 0 Yes twice Univer s 205.5 mcg 1-27 daily. ity of (0.15 %) 00:00: [place] spry 00 MD Chito fernandez [facility] azelastine 0 3- No twice Unive rs 205.5 mcg 1-27 02-08 daily. ity of (0.15 %) 00:00: 00:00 [place] spry 00 :00 MD Chito fernandez [facility] torsemide 0 Yes 20mg Take 20 mg Un socorro (DEMADEX) 7-19 by mouth ity of 20 mg 00:00: daily. [place] tablet 00 MD Chito fernandez [facility] torsemide 0 Yes 20mg Take 20 mg Un socorro (DEMADEX) 7-19 by mouth ity of 20 mg 00:00: daily. [place] tablet 00 MD Chito fernandez [facility] torsemide 0 2023- No 20mg Take 20 mg U nivers (DEMADEX) 7-19 02-08 by mouth ity o f 20 mg 00:00: 00:00 daily. [place] tablet 00 :00 MD Chito fernandez [facility] econazole 2019-1 Yes Intertrigo Apply U nivers (SPECTAZOLE 2-20 topically ity of ) 1% cream 00:00: to affected MD area(s) Anderso twice n daily. [facility] econazole 2019- Yes Intertrigo Apply U nivers (SPECTAZOLE 2-20 topically ity of ) 1% cream 00:00: to affected MD area(s) Anderso twice n daily. [facility] econazole 2019- Yes Intertrigo Apply U nivers (SPECTAZOLE 2-20 topically ity of ) 1% cream 00:00: to affected MD area(s) Anderso twice n daily. [facility] latanoprost Yes 2[drp] Administer Univers (XALATAN) 9-30 2 drops to ity of 0.005% 00:00: both eyes [place] ophthalmic 00 daily. MD fred fernandez [facility] latanoprost Yes 2[drp] Administer Univers (XALATAN) 9-30 2 drops to ity of 0.005% 00:00: both eyes [place] ophthalmic 00 daily. MD fred fernandez [facility] latanoprost 2022- No 2[drp] Administer Univers (XALATAN) 9-30 02-08 2 drops to ity of 0.005% 00:00: 00:00 both eyes [place] ophthalmic 00 :00 daily. MD fred [facility] spironolact 2020- No TAKE 1 Uni vers one 09-29 08-12 TABLET BY ity of (ALDACTONE) 00:00: 00:00 MOUTH [place] 25 mg 00 :00 EVERY DAY [facility] spironolact 2020- No TAKE 1 Uni vers one 09-29 08-12 TABLET BY ity of (ALDACTONE) 00:00: 00:00 M[place]TH [place] 25 mg 00 :00 EVERY DAY MD perez [facility] timolol 2017-05 Yes INSTILL 1 Unive rs (TIMOPTIC-X 2-17 DROP INTO ity of R) 0.5 % 00:00: BOTH EYES [place] ophthalmic 00 IN THE MD gel-forming MORNING [facility] timolol 2017-05 Yes INSTILL 1 Unive rs (TIMOPTIC-X 2-17 DROP INTO ity of R) 0.5 % 00:00: BOTH [place] ophthalmic 00 IN THE MD gel-forming MORNING [facility] timolol 2017-05- No INSTILL 1 Univ ers (TIMOPTIC-X 2-17 02-08 DROP INTO it y of R) 0.5 % 00:00: 00:00 BOTH EYES Nirav as ophthalmic 00 :00 IN THE MD gel-forming MORNING YogiRUST triamcinolo Yes Atopic Apply Uni vers ne 2-22 dermatitis, topically ity of (KENALOG) 00:00: not to [place] 0.1% cream 00 otherwise affected MD specified area(s) Anderso twice n daily. [facility] Yes Atopic Apply Uni vers ne 2-22 dermatitis, topically ity of (KENALOG) 00:00: not to [place] 0.1% cream 00 otherwise affected MD specified area(s) Anderso twice n daily. [facility] Yes Atopic Apply Uni vers ne 2-22 dermatitis, topically ity of (KENALOG) 00:00: not to [place] 0.1% cream 00 otherwise affected MD specified area(s) Anderso twice n daily. [facility] Center Vital Signs Vital Name Observation Time Observation Value Comments Source Systolic blood 2022-06-08 15:49:39 156 mm[Hg] Univer sity of pressure Blanka [facility] Diastolic blood 2022-06-08 15:49:39 67 mm[Hg] Unive rsity of pressure Blanka [facility] Heart rate 2022-06-08 15:49:39 66 /min [facility] Blanka [facility] Respiratory rate 2022-06-08 15:49:39 16 /min [facility] Systolic blood 2021-06-09 17:25:08 144 mm[Hg] Univer sity of pressure Blanka [facility] Diastolic blood 2021-06-09 17:25:08 72 mm[Hg] Unive rsity of pressure Blanka [facility] Heart rate 2021-06-09 17:25:08 60 /min [facility] Blanka [facility] Respiratory rate 2021-06-09 17:25:08 16 /min [facility] Annabel [facility] Body temperature 2020-12-10 18:00:00 36.61 Leigha [facility]abel [facility] Body weight 2020-12-10 18:00:00 125 kg [facility] Blanka Mahm[facility] Oxygen saturation in 2020-12-10 18:00:00 95 /min [facility] Arterial blood by Blanka rooney Pulse oximetry [facility] Center Procedures This patient has no known procedures. Plan of Care Planned Activity Planned Date Details Comments Source Future Scheduled 2022-09-23 COVID-19 Vaccination Uni versity of [place] Test 05:16:46 (3 - Moderna series) MD Regalado [facility] [code = COVID-19 Center Vaccination (3 - Moderna series)] Future Scheduled 2021-10-29 COVID-19 Vaccination [...] Type Clinicians Facility Department ID 2021-07-08 Outpatient [facility] [id number] Common 14:09:04 [facility] 2022-06-08 2022-06-08 Follow-Up Neeta 1.2.840.1 [id number] Univers 10:15:00 10:30:44 Nellie [id number] ity of 3.412.2.7 [place] .[id number] MD Viktoriya [facility] 2022-06-08 2022-06-08 Outpatient RAQUEL SANTACRUZ MDA MDA [id number] 09:38:40 10:30:44 NELLIE fernandez 2022-06-08 2022-06-08 Travel 1.2.840.1 [id number] Univers 00:00:00 00:00:00 [id number] 350.1.13.41 ity of 3.412.2.7 2.[place].7.3.698 [place] .3.646385 084.8 MD Viktoriya fernandez [facility] 2021-06-09 2021-06-09 Office RAQUEL Santacruz 1.2.840.1 [id number] Univers 11:15:00 12:33:14 Visit Nellie 72746.1.1 ity of 3.412.2.7 [place] .3.227024 MD .[address] [facility] 2021-06-09 2021-06-09 Travel 1.2.840.1 [id number] Univers 00:00:00 00:00:00 24564.1.1 350.1.13.41 ity of 3.412.2.7 2.2.7.3.698 [place] .3.393066 084.8 MD Sadler [facility] 2020-12-10 2020-12-10 Office RAQUEL Santacruz, 1.2.840.1 [id number] Univers 12:20:00 13:26:24 Visit Nellie 96593.1.1 ity of 3.412.2.7 [place] .3.217052 MD Martell8 [facility] 2020-12-10 2020-12-10 Travel 1.2.840.[id number] [facility] 00:00:00 00:00:00 [id number] 350.1.13.41 ity of 3.412.2.7 2.2.7.3.698 [place] .3.494544 084.8 MD Sadler [facility] 2020-11-26 2020-11-26 Orders Lulajocelyne, 1.2.840.1 [id number] Univers 00:00:00 00:00:00 Only Judith Srinivasan 89728.1.1 it y of 3.412.2.7 [place] .[id number] MD Sadler [facility] 2020-04-15 2020-04-15 Outpatient [facility] MDA [id number] MD 11:39:09 13:08:08 NELLIE fernandez 2020-04-15 2020-04-15 Outpatient NEETA [facility] MDA [id number] 00:00:00 00:00:00 NELLIE fernandez 2020-02-12 2020-02-12 Outpatient NEETA [facility] MDA [id number] MD 00:00:00 00:00:00 NELLIE fernandez Results This patient has no known results.
--- OUTSIDE RECORDS SUMMARY | 2023-01-01 14:42 | XMS REPORT | Clinical Summary ---
:1940 Author Organization [facility] MD Calix [facility] Address [address] [place] [address] Care Team Providers Name Role Phone Jayne Tucker MD Unavailable Unavailable Allergies Active Allergy Reactions Severity Noted Date Comments Sulfamethoxazole (Bulk) 12/07/2015 Unkn own reaction Medications Medication Sig Dispensed Refills Start Date End Date Status simvastatin (ZOCOR) 20 Take by mouth at 0 Active mg tablet bedtime. triamcinolone Apply topically to 80 g 3 06/22/2017 Active (KENALOG) 0.1% affected area(s) creamIndications: twice daily. Atopic dermatitis, not otherwise specified Additional Information Patient not taking. Reason: No longer taking, Reported on 06/08/2022 econazole (SPECTAZOLE) 1% Apply topically to 60 g 5 04/19 Active creamIndications: Intertrigo affected area(s) twice daily. Additional Information Patient not taking. Reason: No longer taking, Reported on 06/08/2022 acetaZOLAMIDE (DIAMOX) 250 TAKE 1 TABLET BY 0 2021 Active mg tablet MOUTH TWICE A DAY Eliquis 5 mg tablet 0 06/06/2022 Active famotidine (PEPCID) 20 mg TAKE 1 TABLET BY 0 022 Active tablet MOUTH EVERYDAY AT BEDTIME furosemide (LASIX) 40 mg TWICE DAILY AT 0 11/23/2021 Active tablet 9am & 5pm losartan (COZAAR) 50 mg TAKE 1 TABLET BY 0 Active tablet MOUTH EVERY DAY IN THE MORNING omeprazole (PriLOSEC) 20 mg TAKE 1 CAPSULE BY 0 03/31 Active capsule MOUTH EVERY DAY IN THE MORNING potassium chloride TAKE 1 TABLET BY 0 03/07/2022 Active (K-DUR,KLOR-CON M) 10 mEq MOUTH TWICE A DAY tablet multivitamin capsule Take 1 capsule by 0 Active mouth daily. vitamin E, dl,tocopheryl Take by mouth. 0 Active acet, (vitamin E, acetate,) 400 units capsule BRINZOLAMIDE/BRIMONIDINE Apply 1 drop to 0 Discontinued TART (SIMBRINZA OPHTHALMIC) eye daily. One 023 (Discontinued by drop in each eye ano ther clinician) BID. aspirin 81 mg EC tablet Take 81 mg by 0 Discontinued mouth daily. 023 (Discon tinued by another cl inician) aspirin 500 mg EC tablet Take 500 mg by 0 Discontinued mouth as needed. 023 (Di scontinued by another cl inician) felodipine (PLENDIL) 10 MG Take 10 mg by 0 Discontinued 24 hr tablet mouth daily. 023 (Dis continued by another cl inician) hydrochlorothiazide Take 12.5 mg by 0 11/30 Discontinued (HYDRODIURIL) 12.5 mg mouth daily. 023 (Discontinued by tablet another cl inician) pantoprazole (PROTONIX) 40 Take 40 mg by 0 Discontinued mg EC tablet mouth daily. 023 (Dis continued by another cl inician) UNABLE TO FIND 3 (three) times a 0 Discontinued day. Med Name: 023 (Disc ontinued by Isoflex another cl inician) timolol (TIMOPTIC-XR) 0.5 % INSTILL 1 DROP 1 018 Discontinued ophthalmic gel-forming INTO BOTH EYES IN 023 (Discontinued by THE MORNING another clinician) latanoprost (XALATAN) Administer 2 0 01/29/2020 8/ Discontinued 0.005% ophthalmic solution drops to both 023 (Discontinued by eyes daily. another clinician) torsemide (DEMADEX) 20 mg Take 20 mg by 0 11/16/2020 Discontinued tablet mouth daily. 023 (Discon tinued by another cl inician) azelastine 205.5 mcg (0.15 twice daily. 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 06/08/2022 Travel after 01/01/2022 Surgical History Surgery Date Site/Laterality Comments BACK SURGERY 08/30/2019 - 09/29/2019 Social History Tobacco Use Types Packs/Day Years Used Date Smoking Tobacco: Former Cigarettes 1969 - 1986 Cigars Smokeless Tobacco: Never Alcohol Use Standard Drinks/Week Comments Yes 0 (1 standard drink = 0.6 oz pure alcoho l) weekly Sex Assigned at Date Recorded Not on file Job Start Date Occupation Industry Not on file Not on file Not on file Obstetrics History Last Filed Vital Signs Vital Sign Reading Time Taken Comments Blood Pressure 156/67 06/08/2022 9:49 AM [employer] WORK[employer] Pulse 66 06/08/2022 9:49 AM [employer] WORKER Temperature - - Respiratory Rate 16 06/08/2022 9:49 AM [employer] WORKER Oxygen Saturation - - Inhaled Oxygen Concentration - - Weight - - Height - - Body Mass Index - - Plan of Treatment Date Type Specialty Care Team Description 06/14/2023 Office Visit Dermatology Francy Anderson M D [address] [place], [place] [address] (Wo rk) Health Maintenance Due Date Last Done Comments COVID-19 Vaccination (3 - Moderna series) 09/20/20202020, 06/28/2020 Results Not on fileafter 01/01/2022 Insurance Payer Benefit Plan Subscriber ID Effective Phone Address Typ e / Group Dates MEDICARE MEDICARE PART [id number] 2005-Pres [phone] [facility] Medicare A AND B ent [id number] [place] [address] [place] [employer] [id number] 2016-Pres [address] [employer] ONLY ent [id number] [place] [address] [phone] (Home) [phone] [place], [place] 8 (Work) [id number] Nirav Maria Jr Personal/Famil Self 1940 [phone] (Home) [phone] [place] 8 (Work) [id number] Nirav Maria Jr Personal/Famil Self 1940 [phone] (Home) [place] [address] Care Teams Accounting Professional Relationship Specialty Start Date End Date Jayne Tucker MD Physician 07/08/15
[2023-01-01] MEDS ORDERED: TRAMADOL HCL 50 MG TAB ONE (15:16)
--- NOTE | 2023-01-01 16:22 | RAD REPORT ---
EXAM DESCRIPTION: RAD - Hand Right 3 View - 01/01/2023 3:54 pm CLINICAL HISTORY: PAIN COMPARISON: No comparisons FINDINGS/IMPRESSION: Fourth and fifth proximal phalangeal fractures with slight angulation and displ acement. The fifth proximal phalanx fracture likely extends to the articular surface. The fourth prox imal phalanx fracture involves the metaphysis without intra-articular extension.
--- NOTE | 2023-01-01 16:55 | EDPHYS ---
Physician Documentation [facility] Name: Nirav Maria Jr Age: 82 yrs Sex: Male : 1940 Arrival Date: 01/01/2023 Time: 14:36 Bed 15 Private MD: ED Physician Ej Rasmussen HPI: 01/01 17:15 This 82 yrs old Male presents to ER via Wheelchair with complaints of Hand Injury. kb 17:15 The patient or guardian reports a contusion, decreased range of motion, injury, pain, kb swelling, tenderness. The complaints affect the dorsum of right hand and dorsal aspect of proximal phalanx of right little finger and dorsal aspect of proximal phalanx of right ring finger. Context: The problem was sustained outdoors, resulted from a fall, stepped off of a curb. Onset: The symptoms/episode began/occurred just prior to arrival. Modifying factors: The symptoms are alleviated by nothing, the symptoms are aggravated by movement. Associated signs and symptoms: The patient has no apparent associated signs or symptoms. Severity of symptoms: At their worst the symptoms were moderate, in the emergency department the symptoms are unchanged. The patient has not experienced similar symptoms in the past. The patient has not recently seen a physician. Historical: - Allergies: 14:46 No Known Allergies; iw - Immunization history:: Adult Immunizations up to date. - Social history:: Smoking status: Patient denies any tobacco usage or history of. ROS: 17:14 Constitutional: Negative for fever, chills, and weight loss. kb 17:14 MS/extremity: Positive for injury or acute deformity, decreased range of motion, pain, swelling, tenderness, of the dorsal aspect of proximal phalanx of right ring finger, dorsal aspect of proximal phalanx of right little finger and dorsum of right hand. 17:14 All other systems are negative. Exam: 17:14 Constitutional: This is a well developed, well nourished patient who is awake, alert, kb and in no acute distress. Head/Face: Normocephalic, atraumatic. ENT: Moist Mucous membranes Cardiovascular: Regular rate and rhythm with a normal S1 and S2. No gallops, murmurs, or rubs. No pulse deficits. Respiratory: Respirations even and unlabored. No increased work of breathing. Talking in full sentences Skin: Warm, dry with normal turgor. Normal color. Neuro: Awake and alert, GCS 15, oriented to person, place, time, and situation. Moves all extremities. Normal gait. 17:14 Musculoskeletal/extremity: Extremities: grossly normal except: noted in the dorsum of right hand and dorsal aspect of proximal phalanx of right little finger and dorsal aspect of proximal phalanx of right ring finger: contusion, decreased ROM, ecchymosis, pain, swelling, tenderness, ROM: limited active range of motion due to pain, Circulation is intact in all extremities. Sensation intact. Vital Signs: 14:44 Resp 16; Temp 97.7; Pulse Ox 96% on R/A; Weight 113.4 kg; Height 6 ft. 0 in. ; Pain iw 10; 14:47 BP 182 / 67; Pulse 64; Resp 16; Temp 98; Pulse Ox 98% on R/A; iw 15:09 BP 168 / 71; Pulse 52; Resp 18; Temp 96(O); me1 16:00 BP 168 / 71; Pulse 53; Resp 16; Pulse Ox 96% on R/A; me1 16:46 BP 162 / 64; Pulse 51; Resp 17; Pulse Ox 96% on R/A; me1 17:43 BP 165 / 71; Pulse 52; Resp 17; Pulse Ox 96% on R/A; me1 14:44 Body Mass Index 33.91 (113.40 kg, 182.88 cm) iw 14:44 Pain Scale: Adult iw MDM: 14:52 Patient medically screened. kb 17:15 Differential diagnosis: dislocation, open fracture, closed fracture, contusion. Data kb reviewed: vital signs, nurses notes. Counseling: I had a detailed discussion with the patient and/or guardian regarding the historical points, exam findings, and any diagnostic results supporting the discharge/admit diagnosis, radiology results, the need for outpatient follow up, a orthopedic surgeon, to return to the emergency department if symptoms worsen or persist or if there are any questions or concerns that arise at home. 17:17 Independent interpretation of the following test(s) in the Emergency Department X-Ray: samantha My interpretation is displaced fractures to forth and fifth proximal phalanx. 01/01 14:59 Order name: Hand Right 3 View XRAY; Complete Time: 16:24 samantha 01/01 16:24 Order name: Ulnar Gutter splint; Complete Time: 17:55 kb Administered Medications: 15:08 Drug: traMADol PO 50 mg Route: PO; me1 17:24 Follow up: Response: No adverse reaction; Pain is decreased me1 17:59 Drug: Ketorolac IM 30 mg Route: IM; Site: left deltoid; me1 18:12 Follow up: Response: No adverse reaction; Pain is decreased me1 Disposition Summary: 01/01/23 16:55 Discharge Ordered Location: Home kb Condition: Stable kb Diagnosis - Displaced fracture of proximal phalanx of right ring finger, initial encounter for kb closed fracture - Displaced fracture of proximal phalanx of right little finger, initial encounter kb for closed fracture Followup: kb - With: Emergency Department - When: As needed - Reason: Worsening of condition Followup: kb - With: Private Physician - When: 2 - 3 days - Reason: Recheck today's complaints, Continuance of care, Re-evaluation by your physician Discharge Instructions: - Discharge Summary Sheet kb - Finger Fracture, Adult, [id number] kb Forms: - Medication Reconciliation Form kb - Thank You Letter kb - Antibiotic Education kb - Prescription Opioid Use kb - Patient Portal Instructions kb - Leadership Thank You Letter kb Prescriptions: - Diclofenac Sodium 75 mg Oral tablet,delayed release (DR/EC) - take 1 tablet by ORAL route 2 times per day As needed; 30 tablet; Refills: 0, kb Product Selection Permitted Signatures: Dispatcher [employer] Brianne Polanco, KYLEC BIANCA-Hortecnia Huang RN RN iw Nieves Michelle RN RN me1
--- NOTE | 2023-01-01 16:55 | ER ---
Nurse's Notes [facility] Name: Nirav Maria Jr Age: 82 yrs Sex: Male : 1940 Arrival Date: 01/01/2023 Time: 14:36 Bed 15 Private MD: Diagnosis: Displaced fracture of proximal phalanx of right ring finger, initial encounter for closed fracture;Displaced fracture of proximal phalanx of right little finger, initial encounter for closed fracture Presentation: 01/01 14:44 Chief complaint: Patient states: stepped off a curb and fell forward, injured his right iw hand, he did hit his head but not hard. Coronavirus screen: At this time, the client does not indicate any symptoms associated with coronavirus-19. Ebola Screen: Patient negative for fever greater than or equal to 101.5 degrees Fahrenheit, and additional compatible Ebola Virus Disease symptoms Patient denies exposure to infectious person. Patient denies travel to an Ebola-affected area in the 21 days before illness onset. No symptoms or risks identified at this time. Initial Sepsis Screen: Does the patient meet any 2 criteria? No. Patient's initial sepsis screen is negative. Does the patient have a suspected source of infection? No. Patient's initial sepsis screen is negative. Risk Assessment: Do you want to hurt yourself or someone else? Patient reports no desire to harm self or others. Onset of symptoms was January 01, 2023. 14:44 Method Of Arrival: Wheelchair iw 14:44 Acuity: ROYCE 4 iw Historical: - Allergies: 14:46 No Known Allergies; iw - Immunization history:: Adult Immunizations up to date. - Social history:: Smoking status: Patient denies any tobacco usage or history of. Screenin:09 [facility] ED Fall Risk Assessment (Adult) History of falling in the last 3 months, me1 including since admission Yes- single mechanical fall (1 pt) Confusion or Disorientation No (0 pts) Intoxicated or Sedated No (0 pts) Impaired Gait No (0 pts) Mobility Assist Device Used No (0 pt) Altered Elimination No (0 pt) Score/Fall Risk Level 0 - 2 = Low Risk. Abuse screen: Denies threats or abuse. Nutritional screening: No deficits noted. Tuberculosis screening: No symptoms or risk factors identified. 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 Reports that he did hit his head but not hard. Pain: Complains of pain in right hand Pain does not radiate. Pain currently is 7 out of 10 on a pain scale. Quality of pain is described as throbbing, Pain began suddenly, Is continuous. Neuro: Level of Consciousness is awake, alert, obeys commands, Oriented to person, place, time, situation, Appropriate for age. Cardiovascular: Capillary refill < 3 seconds Patient's skin is warm and dry. Respiratory: Airway is patent Respiratory effort is even, unlabored, Respiratory pattern is regular, symmetrical. Musculoskeletal: Reports pain in right hand Denies numbness in, right hand. 16:46 Reassessment: Patient appears in no apparent distress at this time. No changes from me1 previously documented assessment. Patient is alert, oriented x 3, equal unlabored respirations, skin warm/dry/pink. Patient states feeling better. Vital Signs: 14:44 Resp 16; Temp 97.7; Pulse Ox 96% on R/A; Weight 113.4 kg; Height 6 ft. 0 in. ; Pain iw 1010; 14:47 BP 182 / 67; Pulse 64; Resp 16; Temp 98; Pulse Ox 98% on R/A; iw 15:09 BP 168 / 71; Pulse 52; Resp 18; Temp 96(O); me1 16:00 BP 168 / 71; Pulse 53; Resp 16; Pulse Ox 96% on R/A; me1 16:46 BP 162 / 64; Pulse 51; Resp 17; Pulse Ox 96% on R/A; me1 17:43 BP 165 / 71; Pulse 52; Resp 17; Pulse Ox 96% on R/A; me1 14:44 Body Mass Index 33.91 (113.40 kg, 182.88 cm) iw 14:44 Pain Scale: Adult iw ED Course: 14:38 Patient arrived in ED. im 14:46 Triage completed. iw 14:46 Arm band placed on. iw 14:51 Brianne Hartley FNP-C is [facility]. kb 14:51 Ej Rasmussen MD is Attending Physician. kb 14:56 Eddleman, Nieves, RN is Primary Nurse. me1 15:09 Patient has correct armband on for positive identification. Bed in low position. Call me1 light in reach. Side rails up X2. Patient has correct armband on for positive identification. Bed in low position. Call light in reach. Side rails up X2. Provided Education on: POC. Verbalized understanding.. 15:09 No provider procedures requiring assistance completed. Patient did not have IV access me1 during this emergency room visit. 15:56 Hand Right 3 View XRAY In Process Unspecified. EDMS Administered Medications: 15:08 Drug: traMADol PO 50 mg Route: PO; me1 17:24 Follow up: Response: No adverse reaction; Pain is decreased me1 17:59 Drug: Ketorolac IM 30 mg Route: IM; Site: left deltoid; me1 18:12 Follow up: Response: No adverse reaction; Pain is decreased me1 Medication: 15:09 VIS not applicable for this client. me1 Outcome: 16:55 Discharge ordered by . kb 18:13 Discharged to home ambulatory, with friend. me1 18:13 Condition: stable 18:13 Discharge instructions given to patient, friend, Instructed on discharge instructions, follow up and referral plans. medication usage, Demonstrated understanding of instructions, follow-up care, medications, Prescriptions given X 1. 18:13 Patient left the ED. me1 Signatures: Dispatcher [employer] Brianne Polanco, RETAIL SERVICE TECHNICIAN-C RETAIL SERVICE TECHNICIAN-Hortencia Huang, Katy Hdz RN, Michelle, RN RN me1
[2023-01-01] MEDS ORDERED: KETOROLAC 30 MG/ML INJ ONE (18:10)
[2023-01-01 18:21] VITALS: TEMP 96
[2023-01-01 18:23] VITALS: O2SAT 96
[2023-01-01 18:25] VITALS: BP 165/71
== END 2023-01-01 18:13 | disposition home or self-care (01) ==
LOC: ER 14:36
PROC: 2W3JX1Z Immobilization of Right Finger using Splint (ICD-10-PCS; principal; 2023-01-01)
DX: S62.614A Displaced fracture of proximal phalanx of right ring finger, initial encounter for closed fracture (principal); S62.616A Displaced fracture of proximal phalanx of right little finger, initial encounter for closed fracture
CPT/HCPCS: 96372; 99284

== ENCOUNTER 2023-10-23 10:50 | Day surgery (SDC) | payer OTHER, MEDICARE ==
[2023-10-19 13:21] LABS: Absolute Lymphocytes (CBC) 1.2 K/uL (0.7-4.9); Absolute Monocytes 0.9 K/uL (0.1-1.3); Absolute Neutrophil 3.8 K/uL (1.8-8.0); Basophils % 0.6 % (0-1.3); Eosinophils % 0.4 % (0-4.4); Hemoglobin 14.7 g/dL (13.6-17.9); Lymphocytes % 20.6 % (15.3-44.8); MCH 34.5 pg (27.0-35.0); MCHC 33.4 g/dL (32.0-36.0); MCV 103.4 fL (80-100); MPV 7.5 fL (7.6-11.3); Monocytes % 14.8 % (3.3-12.3); Neutrophils % 63.6 % (41.7-73.7); Platelets 227 thou/uL (152-406); RBC Red Blood Cell Count 4.25 M/uL (4.33-5.43); Red Cell Distribution Width 13.9 % (12.1-15.2)
[2023-10-19 13:28] LABS: PT Prothrombin Time 15.2 SECONDS (9.4-12.5); PTT, Activated Partial Thromb 36.8 SECONDS (24.3-36.9); Protime INR 1.4
--- NOTE | 2023-10-19 13:35 | RAD REPORT ---
EXAM DESCRIPTION: RAD - Chest Pa And Lat (2 Views) - 10/19/2023 1:23 pm CLINICAL HISTORY: PREPROCEDURE SCREENING Chest pain. COMPARISON: <Comparisons> FINDINGS: Mild interstitial pulmonary edema suspected. Trace pleural fluid bilaterally. The heart is moderately enlarged. No displaced fractures. IMPRESSION: Mild CHF is possible.
[2023-10-19 13:42] LABS: Anion Gap 7.8 mEq/L (5.0-15.0); Potassium 3.8 mEq/L (3.5-5.1)
--- NOTE | 2023-10-22 13:34 | EKG ---
Test Date: 2023-10-19 Test Time: 13:09:35 Orthopedic Assistant: CD MEASUREMENT RESULTS: Intervals: Rate: 50 AR: QRSD: 136 QT: 476 QTc: 433 [place]: P: 97 AR: QRS: -60 T: 18 INTERPRETIVE STATEMENTS: Atrial flutter with 4:1 AV conduction Left axis deviation Right bundle branch block Minimal voltage criteria for LVH, may be normal variant Inferior infarct, age undetermined Abnormal ECG Compared to ECG 11/05/2021 05:38:09 Right bundle-branch block now present Left ventricular hypertrophy now present Sinus rhythm no longer present First degree AV block no longer present Myocardial infarct finding still present Electronically Signed On 10-22-23 13:28:30 CDT by Dale Isaac
[2023-10-23] MEDS: NA CHLORIDE 0.9% 500 ML ONE (10:57)
[2023-10-23] MEDS ORDERED: HEPA 1000U/500MLS 2,000 UNIT/1,000 ML BAG IV ONE (12:06)
[2023-10-23] MEDS ORDERED: LIDOCAINE 1% 20 ML MDV ONE (12:06)
[2023-10-23] MEDS ORDERED: MIDAZOLAM HCL 2 MG/2 ML INJ ONE (12:12)
[2023-10-23] MEDS ORDERED: FENTANYL CITR 100 MCG/2 ML ONE (12:12)
[2023-10-23] MEDS ORDERED: VERAPAMIL HCL 10 MG/4 ML VIAL IV ONE (12:12)
[2023-10-23] MEDS ORDERED: HEPARIN 5000 UNIT/ML 1 ML VIAL ONE (12:13)
[2023-10-23] MEDS ORDERED: HEPARIN 10,000 UNIT/10 ML VIAL IV ONE (12:13)
[2023-10-23] MEDS ORDERED: ATROPINE SULF 1 MG/10 ML SYR IV ONE (12:13)
[2023-10-23] MEDS ORDERED: TICAGRELOR 90 MG TABLET PO ONE (12:13)
[2023-10-23] MEDS ORDERED: CLOPIDOGREL 75 MG TABLET ONE (12:14)
[2023-10-23] MEDS ORDERED: ASPIRIN 325 MG TAB ONE (12:14)
--- NOTE | 2023-10-23 13:56 | OP ---
Surgeon: QUINN CAUSEY Procedure Performed: Selective coronary angiogram with left heart catheterization. Indication: Unstable angina. Access: Right radial artery 6-[place] closed with TR band. Complications: None. Bleeding: Less than 50 mL. Anesthesia: Total sedation time is 30 minutes. Used fentanyl and Versed. Description Of Procedure: After risks, benefits, and alternatives were explained, the patient agreed to procedure and signed informed consent. The patient was brought into cardiac catheterization [facility], prepped and draped in usual sterile fashion. Then, I accessed right radial artery using pedi atric micropuncture kit, placed a 6-[place] Slender sheath, and took 5-[place] Winston 4.0 catheter into the aortic root over a J-wire and crossed the aortic valve, measured the LVEDP. Pullback did not rec ord any gradient and then engaged the RCA, took standard views, and then the left main, took standard views, and then removed the catheter and the sheath, placed TR band with good hemostasis. Findings: 1.Left main is normal. 2.LAD; proximal segment is normal. Mid segment focal 30% to 40%. Rest of it is normal. Diagonal b ranch is normal. 3.Left circumflex; moderate-sized vessel with distal 30% to 40%. 4.RCA; large and dominant mid 30% stenosis. 5.LVEDP elevated at 18 mmHg. Conclusion: 1.Mild nonobstructive coronary artery disease. 2.Elevated LVEDP. Recommendation: Medical management. /MODL Voice ID: [id number] Report ID: [id number]
[2023-10-23 14:49] VITALS: BP 124/74; O2SAT 94
--- NOTE | 2023-10-24 12:46 | EKG ---
Test Date: 2023-10-19 Test Time: 13:10:15 [employer]: CD MEASUREMENT RESULTS: Intervals: Rate: 50 SD: QRSD: 132 QT: 490 QTc: 446 [place]: P: SD: QRS: -65 T: -12 INTERPRETIVE STATEMENTS: Atrial flutter with variable AV block Left axis deviation Right bundle branch block Minimal voltage criteria for LVH, may be normal variant Inferior infarct, age undetermined Anterior infarct, age undetermined Abnormal ECG Compared to ECG 10/19/2023 13:09:35 No significant changes Electronically Signed On 10-24-23 12:42:07 CDT by Dale Isaac
== END 2023-10-23 14:50 | disposition home or self-care (01) ==
LOC: CCL 10:50
PROVIDERS: ATTEND Internal Medicine
DX: I25.110 Atherosclerotic heart disease of native coronary artery with unstable angina pectoris (principal); I48.92 Unspecified atrial flutter; I11.0 Hypertensive heart disease with heart failure; I50.32 Chronic diastolic (congestive) heart failure; E78.2 Mixed hyperlipidemia; K21.9 Gastro-esophageal reflux disease without esophagitis; Z79.01 Long term (current) use of anticoagulants; Z79.899 Other long term (current) drug therapy
CPT/HCPCS: 93005 ×2; 85025; 80048; 36415; 85610; 85730; 71046; 93458; 76937; C1893; Q9966; J1644; J2001; J2250; J3010; J7040; 99152; 99153; J0461